=== PATIENT | male | born 1990 | race Caucasian/White ===

== ENCOUNTER 2023-01-28 08:59 | Outpatient (OUT) | payer BC, SELFPAY ==
[2023-01-28 09:15] LABS: Basophils Absolute Auto 0.1 10^3/uL (0.0-0.1); Basophils Percent Auto 0.9 % (0.2-2.0); Eosinophils Absolute Auto 0.2 10^3/uL (0.0-0.7); Eosinophils Percent Auto 2.1 % (0.9-7.0); Hematocrit 47.3 % (42.0-54.0); Hemoglobin 15.3 g/dL (14.0-18.0); Immature Granulocytes Abs Auto 0.04 10^3/uL (0.00-0.03); Immature Granulocytes Pct Auto 0.6 % (0.0-0.5); Lymphocytes Absolute Auto 2.1 10^3/uL (1.2-3.8); Lymphocytes Percent Auto 30.3 % (20.5-60.0); Mean Corpuscular HGB Conc 32.3 g/dL (29.9-35.2); Mean Corpuscular Hemoglobin 28.3 pg (25.9-34.0); Mean Corpuscular Volume 87.4 fL (80.0-94.0); Mean Platelet Volume 9.8 fL (9.5-13.5); Monocytes Absolute Auto 0.5 10^3/uL (0.3-0.8); Monocytes Percent Auto 7.7 % (1.7-12.0); Neutrophils Absolute Auto 4.1 10^3/uL (1.4-6.5); Neutrophils Percent Auto 58.4 % (43.0-75.0); Platelet Count 292 10^3/uL (150-450); Red Blood Count 5.41 10^6/uL (4.70-6.10); Red Cell Distribution Width 13.2 % (11.0-15.0)
[2023-01-28 09:26] LABS: Estimated Average Glucose 120 mg/dL; Glycohemoglobin A1C 5.8 % (4.5-6.2)
[2023-01-28 09:37] LABS: Alanine Aminotransferase 68 U/L (16-63); Albumin Globulin Ratio 1.1; Albumin Level 3.9 g/dL (3.4-5.0); Alkaline Phosphatase 99 U/L (46-116); Anion Gap 11.3; Aspartate Amino Transferase 25 U/L (15-37); BUN Creatinine Ratio 9.2; Bilirubin Total 0.3 mg/dL (0.2-1.0); Calcium 8.9 mg/dL (8.5-10.1); Carbon Dioxide 31.1 mmol/L (21.0-32.0); Chloride 102 mmol/L (98-107); Chol HDL Ratio 6.5; Cholesterol 235 mg/dL (<=200); Estimated GFR (African America >60 (>=60); Estimated GFR (Non-African Ame >60 (>=60); Globulin 3.6 g/dL; Glucose 106 mg/dL (74-106); HDL Cholesterol 36 mg/dL (40-60); Potassium 4.4 mmol/L (3.5-5.1); Sodium 140 mmol/L (136-145); Total Protein 7.5 g/dL (6.4-8.2); Triglycerides 211 mg/dL (<=150); VLDL CHOLESTEROL 42.2 mg/dL
== END 2023-01-28 09:00 | disposition home or self-care (01) ==
PROVIDERS: PCP Internal Medicine; Visit Provider Internal Medicine
DX: R10.9 Unspecified abdominal pain (principal); Z13.1 Encounter for screening for diabetes mellitus; Z13.220 Encounter for screening for lipoid disorders
CPT/HCPCS: 36415; 80053; 80061; 83036; 85025

== ENCOUNTER 2023-03-02 15:41 | Emergency (ER) | payer BC, SELFPAY ==
[2023-03-02 16:09] VITALS: BP 142/75; PULSE 72; RESP 14; TEMP 36.8; O2SAT 98; BMI 37.0
--- NOTE | 2023-03-02 16:16 | PC.NURSE ---
bottom right wisdom tooth looks cracked, no s/s of infection observed, no swelling of the face
--- NOTE | 2023-03-02 17:56 | ED_ITS ---
HPI - Dental/Oral General Chief complaint: Dental/Oral Stated complaint: TOOTH PAIN Time Seen by Provider: 03/02/23 17:48 Source: patient Mode of arrival: walk-in History of Present Illness HPI Narrative: 32-year-old male presents for pain toothache. He is complaining of moderate to severe pain at his right mandibular 3rd molar. He has an appointment with a dentist in two weeks but has been keeping him up at night and it's throbbing in continuous. Related Data Home Medications Medication Instructions Recorded Confirmed amlodipine 5 mg tablet 5 mg PO DAILY 03/02/23 03/02/23 atorvastatin 20 mg tablet 20 mg PO DAILY 03/02/23 03/02/23 dicyclomine 10 mg capsule 10 mg PO QID PRN abdominal pain 03/02/23 03/02/23 pantoprazole 40 mg tablet,delayed 40 mg PO DAILY 03/02/23 03/02/23 release valacyclovir 500 mg tablet 500 mg PO DAILY 03/02/23 03/02/23 Previous Rx's Medication Instructions Recorded acetaminophen 300 mg-codeine 30 mg 1 tab PO Q6H PRN pain 5 days #20 03/02/23 tablet tabs penicillin V potassium 250 mg 250 mg PO QID 10 days #40 tabs 03/02/23 tablet Allergies Allergy/AdvReac Type Severity Reaction Status Date / Time No Known Drug Allergies Allergy Verified 03/02/23 16:13 Review of Systems ROS Narrative A ten point review of systems is negative except as noted above. Exam Narrative Exam Narrative: Nurses note and vital signs reviewed and patient is not hypoxic. General: The patient appears well and in no apparent distress. Patient is sit ting in the examination chair. Skin: Warm, dry, no pallor noted. There is no rash noted. Head: Normocephalic, atraumatic Eye: Normal conjunctiva, no drainage Ears, Nose, Mouth, and Throat: oral mucosa is moist. Nares patent. Mouth without vesicles. dental caries is noted at the right mandibular 3rd molar. Noo bleeding or pus present. No gingival swelling or erythema. No swelling to the floor of his mouth. Cardiovascular: Regular Rate and Rhythm Respiratory: Patient is in no distress, no accessory muscle use GI: nontender Musculoskeletal: no joint swelling Neurological: A&O, normal speech Psychiatric: Cooperative Constitutional Vital Signs, click to edit/add: Last Vital Signs Temp 98.3 F 03/02/23 16:09 Pulse 72 03/02/23 16:09 Resp 14 03/02/23 16:09 BP 142/75 H 03/02/23 16:09 Pulse Ox 98 03/02/23 16:09 O2 Del Method Room Air 03/02/23 16:09 Course Vital Signs Vital signs: Vital Signs Temperature 98.3 F 03/02/23 16:09 Pulse Rate 72 03/02/23 16:09 Respiratory Rate 14 03/02/23 16:09 Blood Pressure 142/75 H 03/02/23 16:09 Pulse Oximetry 98 03/02/23 16:09 Oxygen Delivery Method Room Air 03/02/23 16:09 Temperature 98.3 F 03/02/23 16:09 Pulse Rate 72 03/02/23 16:09 Respiratory Rate 14 03/02/23 16:09 Blood Pressure 142/75 H 03/02/23 16:09 Pulse Oximetry 98 03/02/23 16:09 Oxygen Delivery Method Room Air 03/02/23 16:09 MDM - Dental/Oral MDM Narrative Medical decision making narrative: he is provided antibiotic and pain medication and will follow-up with his dentist. Treatment diagnosis and follow up are discussed with the patient. Differential Diagnosis Differential diagnosis: Likely gingival abscess, dental caries, toothache and dental abscess Discharge Plan Discharge Chief Complaint: Dental/Oral Clinical Impression: Dental caries, Toothache Patient Disposition: Home, Self-Care Time of Disposition Decision: 17:54 Condition: Good Mode of Transportation: Private Vehicle Prescriptions / Home Meds: New acetaminophen-codeine 300-30 mg tablet 1 tab PO Q6H PRN (Reason: pain) 5 Days Qty: 20 0RF penicillin V potassium 250 mg tablet 250 mg PO QID 10 Days Qty: 40 0RF No Action amlodipine 5 mg tablet 5 mg PO DAILY atorvastatin 20 mg tablet 20 mg PO DAILY dicyclomine 10 mg capsule 10 mg PO QID PRN (Reason: abdominal pain) pantoprazole 40 mg tablet,delayed release (DR/EC) 40 mg PO DAILY valacyclovir 500 mg tablet 500 mg PO DAILY Instructions: Toothache (ED), Tooth Extraction (DC) Additional Instructions: follow-up with your dentist at your appointment. Stand Alone Forms: Portal Instructions Referrals: Shaikh Moreno MD [Primary Care Provider] - 1 week
[2023-03-02] MEDS: PENICILLIN V POTASSIUM 250 MG TABLET PO (18:15)
== END 2023-03-02 18:21 | disposition home or self-care (01) ==
PROVIDERS: Emergency Provider Emergency Medicine; PCP Internal Medicine
DX: K02.9 Dental caries, unspecified (principal); K08.89 Other specified disorders of teeth and supporting structures; Z79.899 Other long term (current) drug therapy
CPT/HCPCS: 99283

== ENCOUNTER 2023-12-12 20:30 | Emergency (ER) | payer BC, SELFPAY ==
--- OUTSIDE RECORDS SUMMARY | 2023-12-12 20:36 | XMS_ITS | CCD ---
Author Organization [employer] [facility] Care Team Providers Care Distribution Systems Serviceperson Name Role Phone FAWWAD, LOPEZ Primary Care Unavailable FAWWAD, LOPEZ Admitting Unavailable FAWWAD, LOPEZ Attending Unavailable FAWWAD, LOPEZ Consulting Unavailable FAWWAD, LOPEZ Primary Care Unavailable FAWWAD, LOPEZ Admitting Unavailable Almanza, Vinaya Consulting Unavailable FAWWAD, LOPEZ Attending Unavailable FAWWAD, LOPEZ Consulting Unavailable Isacc Anderson Unavailable FAWWAD, LOPEZ Attending Unavailable Problems Active Problems Problem Classification Problem Date Documented Da te Episodic/Chronic Abdominal pain (6 sources) Unspecified abdominal pain; Translations: [Abdominal pain] Onset: 10-07-2020 Resolved: 07-24-2021 Episodic Other screening for suspected conditions (not mental disorders or infectious disease) (2 sources) Encounter for screening for diabetes mellitus; Translations: [Encounter for screening for lipoid disorders] Onset: 08-10-2020 Episodic Past or Other Problems Problem Classification Problem Date Documented Da te Episodic/Chronic Other gastrointestinal disorders (1 source) Fecal urgency Onset: 07-24-2021 Resolved: 07-24-2021 Episodic Results Test Name Value Interpretation Reference Range Facility [facility] 08-17-2021 L Specimen: [id number] Received: 08/17/21 Status: ALLISON Lazcano Num: [id number] Spec Type: Surgical Subm Dr: Isacc Anderson MD Tissues: A Duodenum - Biopsy (DUODENAL BX) B Colon Biopsy (SURVEILLANCE COLON BX) Procedures: HE Stain/4, Gross/Micro L4/2 Patient Age/Sex Location Account Attending Physician Naif Price 30/M [id number] Isacc Anderson MD SPEC NUM: [id number] RECD: 08/17/21 STATUS: ALLISON [facility] NUM: [id number] ANKIT: 08/17/21- [facility] DR: Isacc Anderson MD ENTERED: 08/17/[address]: SPEC TYPE: Surgical DEPT: S ORDERED: HE Stain/4, Gross/Micro L4/2 ORDERED: HE Stain/4, Gross/Micro L4/2 Pathological Diagnosis A. Small bowel, duodenum, biopsy: - Benign small bowel mucosa with no significant histopathology. - No evidence of celiac disease identified. B. Colon, biopsy: - Benign colonic mucosa with single lymphoid aggregate. - No evidence of chronic, active or microscopic colitis identified. Clinical Information Abdominal pain, fecal urgency Gross Description A. Received in formalin labeled with the patient's name, number and duodenal biopsy are two warner tissue fragments, 0.2 cm and 0.3 cm. Entirely submitted in one cassette labeled A1. Type of Fixative: 10% Neutral Buffered Formalin (SM/YJ) B. Received in formalin labeled with the patient's name, number and surveillance colon biopsy are three warner-pink tissue fragments, 0.3 cm each. Entirely submitted in one cassette labeled B1. Type of Fixative: 10% Neutral Buffered Formalin (SM/YJ) Specimen: [id number] Received: 08/17/21 Status: ALLISON Mccray Num: [id number] Spec Type: Surgical Subm Dr: Isacc Anderson MD Tissues: A Duodenum - Biopsy (DUODENAL BX) B Colon Biopsy (SURVEILLANCE COLON BX) Procedures: HE Stain/4, Gross/Micro L4/2 Patient: Naif Price [id number] (Continued) Specimen: [id number] Received: 08/17/21 (Continued) Signed (signature on file) Bari Ann MD 08/20/21 1413 Specimen: [id number] Received: 08/17/21 Status: ALLISON Mccray Num: [id number] Spec Type: Surgical Subm Dr: Isacc Anderson MD Tissues: A Duodenum - Biopsy (DUODENAL BX) B Colon Biopsy (SURVEILLANCE COLON BX) Procedures: HE Stain/4, Gross/Micro L4/2 Patient: Naif Price [id number] (Continued) Specimen: [id number] Received: 08/17/21 (Continued) Microscopic Description A. Two H E slides are reviewed. Microscopic examination is performed. B. Two H E slides are reviewed. Microscopic examination is performed. This case is interpreted at [place], [place]. CPT Codes A. 79523 B. 29720 Specimen: [id number] Received: 08/17/21 Status: ALLISON Mccray Num: [id number] Spec Type: Surgical Subm Dr: Isacc Anderson MD Tissues: A Duodenum - Biopsy (DUODENAL BX) B Colon Biopsy (SURVEILLANCE COLON BX) Procedures: HE Stain/4, Gross/Micro L4/2 Patient: Naif Price [id number] (Continued) Signed (signature on file) Bari Ann MD 08/20/21 1413 Normal [facility] Bowel Disorders Cascadeon Antigliadin IgG 3 Normal 0-19 [facility] Comment on above: Order Comment: Reaso n for Exam Abdominal pain;Fecal urgency Result Comment: Nega tive 0 - 19 Weak Positive 20 - 30 Moderate to Strong Positive >30 Performed By: #### C MP, CBC, THYROID SC #### [facility] [address] [place] [address] [place] #### BOWEL CASC #### [facility] , Atypical pANCA Negative Normal Negative [facility] Comment on above: Order Comment: Reaso n for Exam Abdominal pain;Fecal urgency Performed By: #### C MP, CBC, THYROID SC #### [place] [address] [place] #### BOWEL CASC #### [facility] , Bowel Disorders Bandera Negative Normal Negative [facility] Comment on above: Order Comment: Reaso n for Exam Abdominal pain;Fecal urgency Performed By: #### C MP, CBC, THYROID SC #### [place] [address] [place] #### BOWEL CASC #### [facility] , Note Bandera continues Normal . [facility] Comment on above: Order Comment: Reaso n for Exam Abdominal pain;Fecal urgency Performed By: #### C MP, CBC, THYROID SC #### [facility] [address] [place] [address] [place] #### BOWEL CASC #### [facility] , Note Normal . [facility] Comment on above: Order Comment: Reaso n for Exam Abdominal pain;Fecal urgency Result Comment: Sugg estive of irritable bowel syndrome (IBS). Careful evaluation of the patient's history, physical examination, and application of Moorhead III diagnostic criteria may help to rule in or rule out the diagnosis of IBS. Subsequent testing for Fecal Calprotectin (821356) may be recommended. If IBD is strongly suspected, subsequent testing with the Crohn's Disease Prognostic Profile (203979) that includes anti-glycan antibodies AMCA, ALCA, ACCA, and Nawaf may aid in differential diagnosis. Performed at: [facility], [place], [place] [id number] Alarm Adjuster: Gary Villegas MD, Phone: [phone] PERFORMED BY: [place] [address] PATHOLOGIST OFFICE EMPLOYEE LASHELL LEIGH M.D. Performed By: #### C MP, CBC, THYROID SC #### [address] #### BOWEL CASC #### [facility] , Saccharomyces cerevisiae, IgG < 20.0 Normal 0.0-24.9 [facility] Comment on above: Order Comment: Reaso n for Exam Abdominal pain;Fecal urgency Result Comment: Nega tive <20.0 Equivocal 20.1 - 24.9 Positive >or= 25.0 Performed By: #### C MP, CBC, THYROID SC #### [address] #### BOWEL CASC #### [facility] , [facility] SARS-CoV-2 (COVID-19) RNA GREGORY+probe Ql (Unsp spec) Negative Normal Negative [facility] Comment on above: Order Comment: Healt hcare Worker?: N Result Comment: Testing for SARS-CoV-2 by RT-PCR This test was developed and its performance characteristics determined by [employer]) and validated at the [facility]. This test has not been FDA cleared or approved. This test has been authorized by FDA under an Emergency Use Authorization (EUA). This test has been validated in accordance with the FDA's Guidance Document (Policy for Diagnostics Testing in Laboratories Certified to Perform High Complexity Testing under CLIA prior to Emergency Use Authorization for Coronavirus Disease-2019 during the Public Health Emergency) issued on June 17, 2019. This test is only authorized for the duration of time the declaration that circumstances exist justifying the authorization of the emergency use of in vitro diagnostic tests for detection of SARS-CoV-2 virus and/or diagnosis of COVID-19 infection under section 564(b)(1) of the Act, 21 U.S.C. 360bbb-3(b)(1), unless the authorization is terminated or revoked sooner. PERFORMED BY: [place] [address] PATHOLOGIST OFFICE EMPLOYEE LASHELL LEIGH M.D. Performed By: #### C OVID 19 [facility] #### [address] Complete Blood Count Auto Di ffon 08-14-2021 Basophils (Bld) [#/Vol] 0.0 10*3/uL Normal 0.0-0.2 [facility] Comment on above: Order Comment: Reaso n for Exam Abdominal pain;Fecal urgency Result Comment: PERF ORMED BY: [place] [address] PATHOLOGIST OFFICE EMPLOYEE LASHELL LEIGH M.D. Performed By: #### C MP, CBC, THYROID SC #### [address] #### BOWEL CASC #### [facility] , Basophils/100 WBC (Bld) 0.5 % Normal . [facility] Comment on above: Order Comment: Reaso n for Exam Abdominal pain;Fecal urgency Performed By: #### C MP, CBC, THYROID SC #### [address] #### BOWEL CASC #### [facility] , Eosinophils (Bld) [#/Vol] 0.1 10*3/uL Normal 0.0-0.45 [facility] Comment on above: Order Comment: Reaso n for Exam Abdominal pain;Fecal urgency Performed By: #### C MP, CBC, THYROID SC #### [address] #### BOWEL CASC #### [facility] , Eosinophils/100 WBC (Bld) 1.3 % Normal . [facility] Comment on above: Order Comment: Reaso n for Exam Abdominal pain;Fecal urgency Performed By: #### C MP, CBC, THYROID SC #### [address] #### BOWEL CASC #### [facility] , Erythrocyte distribution width (RBC) [Ratio] 13.5 % Normal 12.0-14.8 [facility] Comment on above: Order Comment: Reaso n for Exam Abdominal pain;Fecal urgency Performed By: #### C MP, CBC, THYROID SC #### [address] #### BOWEL CASC #### [facility] , Hematocrit (Bld) [Volume fraction] 47.1 % Normal 38.8-50.0 [facility] Comment on above: Order Comment: Reaso n for Exam Abdominal pain;Fecal urgency Performed By: #### C MP, CBC, THYROID SC #### [address] #### BOWEL CASC #### [facility] , Hemoglobin (Bld) [Mass/Vol] 15.7 g/dL Normal 13.0-17.0 [facility] Comment on above: Order Comment: Reaso n for Exam Abdominal pain;Fecal urgency Performed By: #### C MP, CBC, THYROID SC #### [address] #### BOWEL CASC #### [facility] , Lymphocytes (Bld) [#/Vol] 1.5 10*3/uL Normal 1.00-4.8 [facility] Comment on above: Order Comment: Reaso n for Exam Abdominal pain;Fecal urgency Performed By: #### C MP, CBC, THYROID SC #### [place] [address] [place] #### BOWEL CASC #### [facility] , Lymphocytes/100 WBC (Bld) 21.2 % Normal . [facility] Comment on above: Order Comment: Reaso n for Exam Abdominal pain;Fecal urgency Performed By: #### C MP, CBC, THYROID SC #### [address] #### BOWEL CASC #### [facility] , MCH (RBC) [Entitic mass] 28.1 pg Normal 27.5-35.2 [facility] Comment on above: Order Comment: Reaso n for Exam Abdominal pain;Fecal urgency Performed By: #### C MP, CBC, THYROID SC #### [address] #### BOWEL CASC #### [facility] , MCV (RBC) [Entitic vol] 84.5 fL Normal 83.5-101 [facility] Comment on above: Order Comment: Reaso n for Exam Abdominal pain;Fecal urgency Performed By: #### C MP, CBC, THYROID SC #### [address] #### BOWEL CASC #### [facility] , Mean Corpuscular HGB Conc 33.3 g/dL Normal 32.5-35.6 [facility] Comment on above: Order Comment: Reaso n for Exam Abdominal pain;Fecal urgency Performed By: #### C MP, CBC, THYROID SC #### [address] #### BOWEL CASC #### [facility] , Monocytes (Bld) [#/Vol] 0.7 10*3/uL Normal 0.0-0.8 [facility] Comment on above: Order Comment: Reaso n for Exam Abdominal pain;Fecal urgency Performed By: #### C MP, CBC, THYROID SC #### [place] [address] [place] #### BOWEL CASC #### [facility] , Monocytes/100 WBC (Bld) 10.5 % Normal . [facility] Comment on above: Order Comment: Reaso n for Exam Abdominal pain;Fecal urgency Performed By: #### C MP, CBC, THYROID SC #### [place] [address] [place] #### BOWEL CASC #### [facility] , Neutrophils (Bld) [#/Vol] 4.6 10*3/uL Normal 1.8-7.7 [facility] Comment on above: Order Comment: Reaso n for Exam Abdominal pain;Fecal urgency Performed By: #### C MP, CBC, THYROID SC #### [place] [address] [place] #### BOWEL CASC #### [facility] , Neutrophils/100 WBC (Bld) 66.5 % Normal . [facility] Comment on above: Order Comment: Reaso n for Exam Abdominal pain;Fecal urgency Performed By: #### C MP, CBC, THYROID SC #### [address] #### BOWEL CASC #### [facility] , Nucleated RBC/100 WBC (Bld) [Ratio] 0.1 % Normal 0-0.5 [facility] Comment on above: Order Comment: Reaso n for Exam Abdominal pain;Fecal urgency Performed By: #### C MP, CBC, THYROID SC #### [place] [address] [place] #### BOWEL CASC #### [facility] , Platelet mean volume (Bld) [Entitic vol] 8.4 fL Normal 6.6-10.1 [facility] Comment on above: Order Comment: Reaso n for Exam Abdominal pain;Fecal urgency Performed By: #### C MP, CBC, THYROID SC #### [place] [address] [place] #### BOWEL CASC #### [facility] , Platelets (Bld) [#/Vol] 255 10*3/uL Normal 150-450 [facility] Comment on above: Order Comment: Reaso n for Exam Abdominal pain;Fecal urgency Performed By: #### C MP, CBC, THYROID SC #### [place] [address] [place] #### BOWEL CASC #### [facility] , RBC (Bld) [#/Vol] 5.58 10*6/uL Normal 3.90-5.60 [facility] Comment on above: Order Comment: Reaso n for Exam Abdominal pain;Fecal urgency Performed By: #### C MP, CBC, THYROID SC #### [place] [address] [place] #### BOWEL CASC #### [facility] , WBC (Bld) [#/Vol] 6.9 10*3/uL Normal 4.5-11.0 [facility] Comment on above: Order Comment: Reaso n for Exam Abdominal pain;Fecal urgency Performed By: #### C MP, CBC, THYROID SC #### [address] #### BOWEL CASC #### [facility] , Comprehensive Metabolic Pane karishma 08-14-2021 Albumin [Mass/Vol] 3.9 g/dL Normal 3.2-5.5 [facility] Comment on above: Order Comment: Reaso n for Exam Abdominal pain;Fecal urgency Performed By: #### C MP, CBC, THYROID SC #### [address] #### BOWEL CASC #### [facility] , Albumin/Globulin [Mass ratio] 1.3 {ratio} Normal [facility] Comment on above: Order Comment: Reaso n for Exam Abdominal pain;Fecal urgency Performed By: #### C MP, CBC, THYROID SC #### [place] [address] [place] #### BOWEL CASC #### [facility] , ALP [Catalytic activity/Vol] 91 U/L Normal 32-92 [facility] Comment on above: Order Comment: Reaso n for Exam Abdominal pain;Fecal urgency Performed By: #### C MP, CBC, THYROID SC #### [address] [place] [address] [place] #### BOWEL CASC #### [facility] , ALT [Catalytic activity/Vol] 49 U/L Normal 10-60 [facility] Comment on above: Order Comment: Reaso n for Exam Abdominal pain;Fecal urgency Performed By: #### C MP, CBC, THYROID SC #### [place] [address] [place] #### BOWEL CASC #### [facility] , AST [Catalytic activity/Vol] 34 U/L Normal 10-42 [facility] Comment on above: Order Comment: Reaso n for Exam Abdominal pain;Fecal urgency Performed By: #### C MP, CBC, THYROID SC #### [address] #### BOWEL CASC #### [facility] , Bilirubin [Mass/Vol] 0.5 mg/dL Normal 0.3-1.2 [facility] Comment on above: Order Comment: Reaso n for Exam Abdominal pain;Fecal urgency Performed By: #### C MP, CBC, THYROID SC #### [place] [address] [place] #### BOWEL CASC #### [facility] , Calcium [Mass/Vol] 8.9 mg/dL Normal 8.2-10.2 [facility] Comment on above: Order Comment: Reaso n for Exam Abdominal pain;Fecal urgency Performed By: #### C MP, CBC, THYROID SC #### [place] [address] [place] #### BOWEL CASC #### [facility] , Chloride [Moles/Vol] 104 mmol/L Normal 95-114 [facility] Comment on above: Order Comment: Reaso n for Exam Abdominal pain;Fecal urgency Performed By: #### C MP, CBC, THYROID SC #### [place] [address] [place] #### BOWEL CASC #### [facility] , CO2 [Moles/Vol] 25.0 mmol/L Normal 22.0-30.0 [facility] Comment on above: Order Comment: Reaso n for Exam Abdominal pain;Fecal urgency Performed By: #### C MP, CBC, THYROID SC #### [place] [address] [place] #### BOWEL CASC #### [facility] , Creatinine [Mass/Vol] 0.98 mg/dL Normal 0.64-1.27 [facility] Comment on above: Order Comment: Reaso n for Exam Abdominal pain;Fecal urgency Performed By: #### C MP, CBC, THYROID SC #### [place] [address] [place] #### BOWEL CASC #### [facility] , Estimated GFR ( Kari > 60 [facility] Comment on above: Order Comment: Reaso n for Exam Abdominal pain;Fecal urgency Result Comment: GFR estimated reference range: According to KDOQI guidelines, <60 ml/min/1.73m2 is sufficient to diagnose a patient with chronic kidney disease. Performed By: #### C MP, CBC, THYROID SC #### [place] [address] [place] #### BOWEL CASC #### [facility] , Estimated GFR (Non- Am > 60 [facility] Comment on above: Order Comment: Reaso n for Exam Abdominal pain;Fecal urgency Performed By: #### C MP, CBC, THYROID SC #### [place] [address] [place] #### BOWEL CASC #### [facility] , Globulin (S) [Mass/Vol] 2.9 g/dL [facility] Comment on above: Order Comment: Reaso n for Exam Abdominal pain;Fecal urgency Performed By: #### C MP, CBC, THYROID SC #### [place] [address] [place] #### BOWEL CASC #### [facility] , Glucose [Mass/Vol] 100 mg/dL Normal 70-100 [facility] Comment on above: Order Comment: Reaso n for Exam Abdominal pain;Fecal urgency Result Comment: [facility] Glucose Reference Range is dependent on time and content of last meal. Glucose of more than 200 mg/dL in a nonstressed, ambulatory subject supports the diagnosis of Diabetes Mellitus. ADA recommended reference range Performed By: #### C MP, CBC, THYROID SC #### [place] [address] [place] #### BOWEL CASC #### [facility] , Potassium [Moles/Vol] 4.0 mmol/L Normal 3.5-5.1 [facility] Comment on above: Order Comment: Reaso n for Exam Abdominal pain;Fecal urgency Performed By: #### C MP, CBC, THYROID SC #### [place] [address] [place] #### BOWEL CASC #### [facility] , Protein [Mass/Vol] 6.8 g/dL Normal 6.1-7.9 [facility] Comment on above: Order Comment: Reaso n for Exam Abdominal pain;Fecal urgency Performed By: #### C MP, CBC, THYROID SC #### [place] [address] [place] #### BOWEL CASC #### [facility] , Sodium [Moles/Vol] 137 mmol/L Normal 136-146 [facility] Comment on above: Order Comment: Reaso n for Exam Abdominal pain;Fecal urgency Performed By: #### C MP, CBC, THYROID SC #### [place] [address] [place] #### BOWEL CASC #### [facility] , Urea nitrogen [Mass/Vol] 14 mg/dL Normal 9-23 [facility] Comment on above: Order Comment: Reaso n for Exam Abdominal pain;Fecal urgency Performed By: #### C MP, CBC, THYROID SC #### [address] [address] [place] #### BOWEL CASC #### [facility] , THYROID SCREENon 08-14-2021 Free T4 [Mass/Vol] 1.00 ng/dL Normal 0.61-1.12 [facility] Comment on above: Order Comment: Reaso n for Exam Abdominal pain;Fecal urgency Performed By: #### C MP, CBC, THYROID SC #### [facility] [address] [place] [address] [place] #### BOWEL CASC #### [facility] , TSH Qn 1.53 m[IU]/L Normal 0.45-5.33 [facility] Comment on above: Order Comment: Reaso n for Exam Abdominal pain;Fecal urgency Result Comment: PERF ORMED BY: [place] [address] PATHOLOGIST OFFICE EMPLOYEE LASHELL LEIGH M.D. Performed By: #### C MP, CBC, THYROID SC #### [facility] [address] [place] [address] [place] #### BOWEL CASC #### [facility] , US SINGLE QUAD RT UPPERon US SINGLE QUAD RT UPPER EXAM: US SINGLE QUAD RT UPPER HISTORY: Abdominal pain COMPARISON: None. FINDINGS: Arce-scale and color sonography of the right upper quadrant was performed. The liver, gallbladder, pancreas, right kidney, and intra- and extrahepatic biliary ducts are all normal. No biliary duct dilatation is seen. The IVC and portal vein are normal at the level of the liver. The common duct measures 0.2 cm. The right kidney measures 10.4 cm in sagittal dimension. Sonographic Babin sign is absent. IMPRESSION: 1. Normal right upper quadrant ultrasound. 2. No biliary duct dilatation or gallstones. Electronically authenticated by: MANOLO ALMANZA Date: 2020-10-08 18:[address] [facility] CBC AUTO DIFFon 08-02-2020 BASO # 0.0 103/ul Normal 0.0-0.1 [facility] Comment on above: Performed By: #### C BC #### [facility] [address] [id number] Anh Ritika Basophils/100 WBC (Bld) 0.3 % Normal 0.2-2.[address] [facility] Comment on above: Performed By: #### C BC #### [facility] [address] [place], [place] [id number] Anh Ritika EO # 0.1 103/ul Normal 0.0-0.[address] [facility] Comment on above: Performed By: #### C BC #### [facility] [address] [id number] Anh Ritika Eosinophils/100 WBC (Bld) 1.3 % Normal 0.9-7.[address] [facility] Comment on above: Performed By: #### C BC #### [facility] [address] [place] [address] Anh Ritika Erythrocyte distribution width (RBC) [Ratio] 13.2 % Normal 11.0-15.[address] [facility] Comment on above: Performed By: #### C BC #### [facility] [address] [place] [address] Anh Ritika Hematocrit (Bld) [Volume fraction] 48.8 % Normal 42.0-54.[address] [facility] Comment on above: Performed By: #### C BC #### [facility] [address] [place], [place] [id number] Anh Ritika Hemoglobin (Bld) [Mass/Vol] 16.0 g/dL Normal 14.0-18.[address] [facility] Comment on above: Performed By: #### C BC #### [facility] [address] [place], [place] [id number] Anh Ritika IG # 0.11 10e3/ul Critically high 0.00-0.03 [facility] Comment on above: Performed By: #### C BC #### [facility] [address] [place], [place] [id number] Anh Ritika IG % 1.3 % Critically high 0.0-0.5 [facility] Comment on above: Performed By: #### C BC #### [facility] [address] [place], [place] [id number] Anh Ritika LYMPH # 1.8 103/ul Normal 1.2-3.[address] [facility] Comment on above: Performed By: #### C BC #### [facility] [address] [place], [place] [id number] Anh Yost Lymphocytes/100 WBC (Bld) 20.4 % Critically low 20.5-60.0 [facility] Comment on above: Performed By: #### C BC #### [facility] [address] [place] [address] Anh Yost MANUAL DIFF REQ NO Normal [facility] Comment on above: Performed By: #### C BC #### [facility] [address] [place] [address] Anhradha Yost MCH (RBC) [Entitic mass] 28.4 pg Normal 25.9-34.[address] [facility] Comment on above: Performed By: #### C BC #### [facility] [address] [place] [address] Anhradha Yost MCHC (RBC) [Mass/Vol] 32.8 g/dL Normal 29.9-35.[address] [facility] Comment on above: Performed By: #### C BC #### [facility] [address] [place] [address] Anhradha Yost MCV (RBC) [Entitic vol] 86.5 fL Normal 80.0-94.[address] [facility] Comment on above: Performed By: #### C BC #### [facility] [address] [place] [address] Anhradha Bansalen MONO # 0.6 103/ul Normal 0.3-0.[address] [facility] Comment on above: Performed By: #### C BC #### [facility] [address] [place] [address] Anh Yost Monocytes/100 WBC (Bld) 7.0 % Normal 1.7-12.[address] [facility] Comment on above: Performed By: #### C BC #### [facility] [address] [place] [address] Anh Ritika NEUT # 6.1 103/ul Normal 1.4-6.5 [facility] Comment on above: Performed By: #### C BC #### [facility] [address] [place], [place] [address] Anh Ritika Neutrophils/100 WBC (Bld) 69.7 % Normal 43.0-75.0 [facility] Comment on above: Performed By: #### C BC #### [facility] [address] [place], [place] [address] Anh Ritika Platelet mean volume (Bld) [Entitic vol] 11.0 fL Normal 9.5-13.5 [facility] Comment on above: Performed By: #### C BC #### [facility] [address] [place], [place] [address] Anh Ritika PLT 270 103/ul Normal 150-450 [facility] [facility] Comment on above: Performed By: #### C BC #### [facility] [address] [place], [place] [id number] Anh Ritika RBC 5.64 106/ul Normal 4.70-6.10 [facility] Comment on above: Performed By: #### C BC #### [facility] [address] [place], [place] [address] Anh Ritika WBC 8.8 103/ul Normal 4.0-11.0 [facility] Comment on above: Performed By: #### C BC #### [facility] [address] [place] [id number] Anhradha Yost GLYCOHEMOGLOBIN A1Con 2020 ADA RECOMMENDATION ADA THERAPEUTIC TARGET 6.0 - 7.0 ACTION SUGGESTED > 7.0 Normal [facility] Comment on above: Performed By: #### A 1C #### [facility] [address] [place], [place] [address] Anh Ritika Glucose [Mass/Vol] 114 mg/dL Normal [facility] Comment on above: Performed By: #### A 1C #### [facility] [address] [place], [place] [address] Anh Ritika HbA1c (Bld) [Mass fraction] 5.6 % Normal <=6.0 [facility] Comment on above: Performed By: #### A 1C #### [facility] [address] [place], [place] [address] Anh Ritika LIPID PROFILEon 08-02-2020 CHOL-HDL RATIO NORM SEE BELOW Normal [facility] Comment on above: Result Comment: 3.3 - 4.4 LOW RISK 4.4 - 7.1 AVERAGE RISK 7.1 - 11.0 MODERATE RISK >11.0 HIGH RISK Performed By: #### L IPID, CMP #### [facility] [address] [place], [place] [address] Anh Ritika Cholesterol [Mass/Vol] 193 mg/dL Normal <=200 [facility] Comment on above: Performed By: #### L IPID, CMP #### [facility] [address] [place], [place] [address] Anh Ritika Cholesterol in HDL [Mass/Vol] 30 mg/dL Normal [facility] Comment on above: Performed By: #### L IPID, CMP #### [facility] [address] [place], [place] [address] Anh Ritika Cholesterol in LDL [Mass/Vol] 118.2 mg/dL Normal [facility] Comment on above: Performed By: #### L IPID, CMP #### [facility] [address] [place], [place] [address] Anh Ritika Cholesterol.total/Cho lesterol in HDL [Mass ratio] 6.4 {ratio} Normal [facility] Comment on above: Performed By: #### L IPID, CMP #### [facility] [address] [place], [place] [address] Anh Ritika HDL NORMAL > or = 60 mg/dl - LOW CARDIOVASCULAR RISK <40 mg/dl - HIGH CARDIOVASCULAR RISK Normal [facility] Comment on above: Performed By: #### L IPID, CMP #### [facility] [address] [place], [place] [address] Anh Ritika LDL CALC NORMAL SEE BELOW Normal [facility] Comment on above: Result Comment: <100 mg/dl OPTIMAL 100 - 129 mg/dl NEAR OR ABOVE OPTIMAL 130 - 159 mg/dl BORDERLINE HIGH 160 - 189 mg/dl HIGH >190 mg/dl VERY HIGH Performed By: #### L IPID, CMP #### [facility] [address] [place], [place] [address] Anh Ritika Triglyceride [Mass/Vol] 224 mg/dL Critically high <=150 [facility] Comment on above: Performed By: #### L IPID, CMP #### [facility] [address] [place], [place] [address] Anh Ritika VLDL CALC 44.8 mg/dL Normal [facility] Comment on above: Performed By: #### L IPID, CMP #### [facility] [address] [place] [id number] Anh Ritika PROF 14(COMP METB)on 021 Albumin [Mass/Vol] 4.1 g/dL Normal 3.5-5.0 [facility] Comment on above: Performed By: #### L IPID, CMP #### [facility] [address] [place], [place] [id number] Anh Ritika Albumin/Globulin [Mass ratio] 1.1 {ratio} Normal [facility] Comment on above: Performed By: #### L IPID, CMP #### [facility] [address] [place] [id number] Anh Ritika ALP [Catalytic activity/Vol] 105 U/L Normal 38-126 [facility] Comment on above: Performed By: #### L IPID, CMP #### [facility] [address] [place] [address] Anh Ritika ALT [Catalytic activity/Vol] 77 U/L Critically high 21-72 [facility] Comment on above: Performed By: #### L IPID, CMP #### [facility] [address] [place] [id number] Anh Ritika Anion gap [Moles/Vol] 12.4 mmol/L Normal [facility] Comment on above: Performed By: #### L IPID, CMP #### [facility] [address] [place] [id number] Anh Ritika AST [Catalytic activity/Vol] 32 U/L Normal 17-59 [facility] Comment on above: Performed By: #### L IPID, CMP #### [facility] [address] [place] [address] Anh Ritika Bilirubin [Mass/Vol] 0.3 mg/dL Normal 0.2-1.[address] [facility] Comment on above: Performed By: #### L IPID, CMP #### [facility] [address] [place] [address] Anh Riitka Calcium [Mass/Vol] 9.3 mg/dL Normal 8.4-10.2 [facility] Comment on above: Performed By: #### L IPID, CMP #### [facility] [address] [place] [address] Anh Ritika Chloride [Moles/Vol] 103 mmol/L Normal 98-107 [facility] Comment on above: Performed By: #### L IPID, CMP #### [facility] [address] [place] [address] Anh Ritika CO2 [Moles/Vol] 29.8 mmol/L Normal 22.0-30.0 [facility] Comment on above: Performed By: #### L IPID, CMP #### [facility] [address] [place] [address] Anh Ritika Creatinine [Mass/Vol] 1.02 mg/dL Normal 0.66-1.25 [facility] Comment on above: Performed By: #### L IPID, CMP #### [facility] [address] [place] [address] Anh Ritika EGFR-AF SWISS >60 Normal >=60 [facility] Comment on above: Performed By: #### L IPID, CMP #### [facility] [address] [place] [address] Anh Ritika EGFR-NON AF SWISS >60 Normal >=60 [facility] Comment on above: Performed By: #### L IPID, CMP #### [facility] [address] [place] [address] Anh Ritika Globulin (S) [Mass/Vol] 3.8 g/dL Normal [facility] Comment on above: Performed By: #### L IPID, CMP #### [facility] [address] [place], [place] [address] Anh Ritika Glucose [Mass/Vol] 97 mg/dL Normal 74-106 [facility] [place] [facility] Comment on above: Performed By: #### L IPID, CMP #### [facility] [address] [place], [place] [address] Anh Ritika Potassium [Moles/Vol] 4.2 mmol/L Normal 3.4-5.0 [facility] Comment on above: Performed By: #### L IPID, CMP #### [facility] [address] [place] [id number] Anh Ritika Protein [Mass/Vol] 7.9 g/dL Normal 6.1-8.2 [facility] [place] [facility] Comment on above: Performed By: #### L IPID, CMP #### [facility] [address] [place] [id number] Anh Ritika Sodium [Moles/Vol] 141 mmol/L Normal 137-145 [facility] [place] [facility] Comment on above: Performed By: #### L IPID, CMP #### [facility] [address] [place] [id number] Anh Ritika Urea nitrogen [Mass/Vol] 13.0 mg/dL Normal 9.0-20.0 [facility] Comment on above: Performed By: #### L IPID, CMP #### [facility] [address] [place] [id number] Anh Ritika Urea nitrogen/Creatinine [Mass ratio] 12.7 mg/mg Normal [facility] Comment on above: Performed By: #### L IPID, CMP #### [facility] [address] [place], [place] [address] Anh Ritika Coding Summary.on 11-02-2019 Coding Summary. CODING DATE: 11/02/2019 FINAL [facility] STATUS: Home (Routine DC) PAYOR: Tri ADMIT DX: REASON FOR VISIT DX: R68.89 Other general symptoms and signs FINAL DX: PRINCIPAL: R68.89 Other general symptoms and signs SECONDARY: Z11.59 Encounter for screening for other viral diseases PYMT PROC APC STAT DESCRIPTION DOCTOR NAME DATE NOTE: The code number assigned matches the documented diagnosis and / or procedure in the patient's chart. However, the narrative phrase printed from the coding software may appear abbreviated, or result in slightly different terminology. Coded By: Beth Renner CphT Date Saved: 11/02/2019 04:52 pm Normal [facility] Provider Letteron 10-15-2019 Provider Letter October 15, 2019 NAIF PRICE [address] [place] [address] NAIF PRICE 1990 To Whom It May Concern, Please excuse above patient from work. May Return to Work On: 10/18/2019 Comments: COVID-19 TEST WAS NEGATIVE. Pt may return to work if symptoms are improving, no fever for 3 days without the use of Tylenol/Ibuprofen Sincerely, [facility] [address] [place] [address], [place] [address] Normal [facility] SARS-CoV-2, NAAon 10-15-2019 SARS CORONAVIRUS 2 RNA:PRTHR:PT:RESPIRAT ORY:ORD:PROBE.AMP.TAR Not Detected Not Detected [facility] Comment on above: Result Comment: This test was developed and its performance characteristics determined by [employer]. This test has not been FDA cleared or approved. This test has been authorized by FDA under an Emergency Use Authorization (EUA). This test is only authorized for the duration of time the declaration that circumstances exist justifying the authorization of the emergency use of in vitro diagnostic tests for detection of SARS-CoV-2 virus and/or diagnosis of COVID-19 infection under section 564(b)(1) of the Act, 21 U.S.C. 360bbb-3(b)(1), unless the authorization is terminated or revoked sooner. When diagnostic testing is negative, the possibility of a false negative result should be considered in the context of a patient's recent exposures and the presence of clinical signs and symptoms consistent with COVID-19. An individual without symptoms of COVID-19 and who is not shedding SARS-CoV-2 virus would expect to have a negative (not detected) result in this assay. Performed at: [facility] [address] [facility], [place] [id number] [facility] Aaron Kelsey Performed By: #### S ARS-CoV-2, GREGORY #### [facility] [address] [place] [id number] Family Medicine Phone Visit - Telehealthon 10-11-2019 Family Medicine Phone Visit - Telehealth Chief Complaint NEW SORE THROAT RUNNY NOSE HPI Staff PT states on going symptoms for two - 3 days. pt states it started with a runny nose, followed by a productive cough, itchy throat, fatigue, body aches and upset stomach. pt states he is not sure if he has been exposed to COVID-19. History of Present Illness Chief complaint: NAIF PRICE is a 28 Years Male who is presents via telehealth phone visit for concerns of nasal symptoms, productive cough, sore/itchy throat, body aches, and fatigue that has been present x 3 days, but pt. states that cough started last night. Pt. states that he has also has GI symptoms and gets in to coughing fits that cause him to vomit. Pt. states that when he vomits it looks like white foam. Pt. states they took his temp at work and he did not have a fever, denies any SOB, chest pain, or headaches with symptoms. Pt. denies any known contacts with individuals with COVID-19. OTC medications used: Pt. states he did take OTC Allergy medication and nasal decongestion medications Review of Systems ROS - Provider Constitutional: fever no, chills no, sweats no, body aches yes, + body aches Skin: rash no ENMT: ear pain no, ear drainage no, sore throat yes, nasal congestion yes , nasal drainage yes, hoarseness no Respiratory: chest discomfort no, shortness of breath no, cough yes, productive , orthopnea no, wheezing no Cardiovascular: chest pain no, palpitations no, edema no Gastrointestinal: nausea yes, vomiting yes, diarrhea no Neurologic: headache no, dizziness no, weakness no Physical Exam Vitals & Measurements HT: 168 cm WT: 109 kg BMI: 38.62 General: Well developed, well nourished, in no acute distress Lungs: No respiratory distress, No conversational dyspnea. Mental Status: Alert and oriented x3. Normal mood and affect Assessment/Plan 1. Flu-like symptoms (R68.89: Other general symptoms and signs) Pt. scheduled for COVID-19 test, and was called and made aware of time and process to be tested. Pt. should self quarantine until result Practice social distancing trying to stay at least 6 feet away from others, frequent handwashing for 20 seconds or hand turf manager. Avoid touching face, eyes, nose, mouth. Be courteous and respectful of others health. Wear a clean cloth mask to reduce risk of passing virus to others. If you were to develop trouble breathing then call local ED and for advice and further directions as to where to go. Otherwise try to stay at home. Ordered: SARS-CoV-2, GREGORY Orders: brompheniramine/dext romethorphan/PSE, 10 mL, Oral, QID for cold symptoms, 200 mL, Refill(s) 0, [id number], 168, cm, 10/11/19 10:36:00 EDT, Height/Length Measured, 109, kg, 10/11/19 10:36:00 EDT, Weight Measured ondansetron, 4 mg = 1 tab(s), Oral, q6hr, PRN Nausea/Vomiting, # 12 tab(s), Refills(s) 0, Pharmacy: [id number], 168, cm, 10/11/19 10:36:00 EDT, Height/Length Measured, 109, kg, 10/11/19 10:36:00 EDT, Weight Measured XR Wrist 3+ Views Right Follow-up No qualifying data available Patient Education Viral Infections, Oumy-Sv-Jqtb Problem List/Past Medical History Ongoing Obesity Historical No qualifying data Procedure/Surgical History None. Medications Bromfed DM oral syrup, 10 mL, Oral, QID, PRN ondansetron 4 mg Dis Tab, 4 mg= 1 tab(s), Oral, q6hr, PRN Allergies No Known Allergies Social History Tobacco 10 or more cigarettes (1/2 pack or more)/day in last 30 days Tobacco Use:. Cigarettes, 10/11/2019 Family History Hypertension: Father. This visit was conducted via phone communications from my office due to the restrictions of the COVID-19 pandemic. No physical exam was conducted due to audio only communication with the patient located at [address] [phone], with no one else. If it is determined that the patient should be evaluated in person, the patient will be directed to the appropriate clinic or venue. The patient or their guardian verbally consented to this visit. Phone time was 10 minutes discussing health issues with counseling and coordination of care. Normal [facility] Comment on above: Result Comment: Rylie canalesally Signed By: LUAN CURRAN CNP\.prasanna\Date and Time Signed: 10/11/19 11:08 EDT Patient Educationon 10-11-19 Patient Education Family Medicine Viral Infections A virus is a type of germ. Viruses can cause: ? Minor sore throats. ? Aches and pains. ? Headaches. ? Runny nose. ? Rashes. ? Watery eyes. ? Tiredness. ? Coughs. ? Loss of appetite. ? Feeling sick to your stomach (nausea ). ? Throwing up (vomiting ). ? Watery poop (diarrhea ). HOME CARE ? Only take medicines as told by your doctor. ? Drink enough water and fluids to keep your pee (urine ) clear or pale yellow. Sports drinks are a good choice. ? Get plenty of rest and eat healthy. Soups and broths with crackers or rice are fine. GET HELP RIGHT AWAY IF: ? You have a very bad headache. ? You have shortness of breath. ? You have chest pain or neck pain. ? You have an unusual rash. ? You cannot stop throwing up. ? You have watery poop that does not stop. ? You cannot keep fluids down. ? You or your child has a temperature by mouth above 102? F (38.9? C), not controlled by medicine. ? Your baby is older than 3 months with a rectal temperature of 102? F (38.9? C) or higher. ? Your baby is 3 months old or younger with a rectal temperature of 100.4? F (38? C) or higher. MAKE SURE YOU: ? Understand these instructions. ? Will watch this condition. ? Will get help right away if you are not doing well or get worse. Document Released: 02/13/2009 Document Revised: 05/25/2012 Document Reviewed: 07/09/2011 [employer]Care? Patient Information ?2013 Isabella Oliver. Normal [facility] Vital Signs Date Time Vital Sign Value Performing Clinician Savita santiago 07-24-2021 16:30-0400 Body height 167.64 cm Isacc Justin Other [employer] Other 07-24-2021 16:30-0400 Body mass index (BMI) [Ratio] 37.6 kg/m2 Isacc Riveraormack Other [employer] Other 07-24-2021 16:30-0400 Body weight 105.69 kg Isacc Justin Other [employer] Other 07-24-2021 16:30-0400 Diastolic blood pressure 94 mm[Hg] Isacc Justin Other [employer] [employer] Other 07-24-2021 16:30-0400 Systolic blood pressure 143 mm[Hg] Isacc Chavarriaack Other [employer] Other Encounters Encounter Date Encounter Type Care Provider Facility Start: 04-10-2023 End: 04-10-2023 ambulatory SHAIKH LUCY Not Available Start: 07-24-2021 End: 07-24-2021 ambulatory Isacc Justin Other [employer] Other Start: 07-24-2021 Office outpatient ne w 45 minutes Isacc Anderson [facility] Start: 10-07-2020 End: 10-08-2020 ambulatory LOPEZ FAANTONIOD Facility:[facility] Start: 08-02-2020 End: 08-03-2020 ambulatory LOPEZ FAANTONIOD Facility:[facility] Payers Date Payer Category Payer Unknown [id number] [id number] 1990 Unknown [id number] 1990 Unknown [id number] 1959 Unknown [id number] Social History Date Type Detail Facility Sex Assigned At [facility] [employer] Other Evaluation note 07-24-2021 Note Date & Type Note Facility 07-24-2021 Evaluation note Encounter Date Diagnosis Assessment Notes July, Abdominal pain (ICD-10 - R10.9) July, Fecal urgency (ICD-10 - R15.2) [facility] [employer] Other Summary Purpose Family History No Family History Records FoundNo Family History Records FoundNo Family History Records FoundNo Family History Records Found Advance Directives No Advanced Directives Records FoundNo Advanced Directives Records FoundNo Advanced Directives Records FoundNo Advanced Directives Records Found Additional Source Comments (unrecognized sect ion and content) No Status Records FoundNo Status Records FoundNo Status Records FoundNo Status Records Found INFORMATION SOURCE (unrecogn ized section and content) DATE CREATED AUTHOR 11/03/2019 [facility] DATE CREATED AUTHOR AUTHOR'S ORGANIZ ATION 10/19/2020 [facility] DATE CREATED AUTHOR AUTHOR'S ORGANIZ ATION 08/23/2021 [facility] DATE CREATED AUTHOR AUTHOR'S ORGANIZ ATION 04/11/2023 [facility] EPIC REASON FOR VISIT (unrecogniz ed section and content) PATIENT REFERRED HERE BY DR. AYALA FOR ABDOMINAL PAIN. PT DOES TAKE MEDICATION BUT DOES NOT RECALL NAMES OR DOSAGES NOR DOES HE HAVE A LIST TO REVIEW FOR RECORDS PERTAINING TO PATIENTS WHO ARE OR HAVE BEEN ENROLLED IN A CHEMICAL DEPENDENCY/SUBSTANCEABUSE PROGRAM, SOME INFORMATION MAY BE OMITTED. This clinical summary was aggregated from multiple sources. Caution should be exercised in using it in the provision of clinical care. This summary normalizes information from multiple sources, and as a consequence, information in this document may materially change the coding, format and clinical context of patient data. In addition, data may be omitted in some cases. CLINICAL DECISIONS SHOULD BE BASED ON THE PRIMARY CLINICAL RECORDS. [employer] provides no warranty or guarantee of the accuracy or completeness of information in this document.
[2023-12-12 20:37] VITALS: BP 146/89; PULSE 77; TEMP 37.1; O2SAT 97; BMI 37.1
--- NOTE | 2023-12-12 20:41 | XR_ITS ---
[address] [address] Patient Name: MERARY PRICE MRN: [id number] date: 1990 Sex: M Assigned Patient Location: ER Current Patient Location: ED.MAIN Accession/Order Number: [id number] Exam Date: 12/12/2023 20:50 Report Date: 12/12/2023 21:25 At the request of: LEORA VILCHIS Procedure: XR chest 1V ONE-VIEW CHEST RADIOGRAPH, 12/12/2023 8:50 PM EDT COMPARISON: None CLINICAL HISTORY: Cough FINDINGS: No acute cardiopulmonary disease. No pulmonary edema, pneumothorax, or pleural effusion. Normal heart size. No acute osseous abnormality. XR/XR chest 1V IMPRESSION: No acute abnormality identified. Electronically authenticated by: Cheo MCCULLOUGH Date: 12/12/2023 21:25
--- NOTE | 2023-12-12 20:42 | ED_ITS ---
HPI HPI - General Adult General Chief complaint: Upper Respiratory Infection Stated complaint: COLD, ROUGH BREATHING Time Seen by Provider: 12/12/23 20:31 Source: patient Mode of arrival: walk-in Limitations: no limitations History of Present Illness HPI narrative: Patient is a 33-year-old male who presents to the emergency department for evaluation of upper respiratory symptoms for the past 2 days. He reports some discomfort in the chest with coughing and deep breathing. He has had some sputum production but no hemoptysis. No fevers. He denies vomiting or diarrhea. He reports nasal congestion and runny nose, ear pressure and productive coughing. He has no history of any heart or lung problems, he is a regular smoker. No sick contacts in the home. Related Data Home Medications ?Medication ?Instructions ?Recorded ?Confirmed amlodipine 5 mg tablet 5 mg PO DAILY 03/02/23 03/02/23 atorvastatin 20 mg tablet 20 mg PO DAILY 03/02/23 03/02/23 dicyclomine 10 mg capsule 10 mg PO QID PRN abdominal pain 03/02/23 03/02/23 pantoprazole 40 mg tablet,delayed 40 mg PO DAILY 03/02/23 03/02/23 release valacyclovir 500 mg tablet 500 mg PO DAILY 03/02/23 03/02/23 Previous Rx's ?Medication ?Instructions ?Recorded acetaminophen 300 mg-codeine 30 mg 1 tab PO Q6H PRN pain 5 days #20 03/02/23 tablet tabs penicillin V potassium 250 mg 250 mg PO QID 10 days #40 tabs 03/02/23 tablet albuterol sulfate 90 mcg/actuation 2 inh inhalation Q4H PRN shortness 12/12/23 aerosol inhaler of breath or wheezing #8.5 grams rornuwrpgbyylms-mxzbjfptsvzvdgi-OF 10 ml PO Q6H PRN cold symptoms 12/12/23 2 mg-30 mg-10 mg/5 mL oral syrup #200 mL (Bromfed DM) ondansetron 4 mg disintegrating 4 mg PO Q6H PRN nausea and 12/12/23 tablet vomiting #12 tabs prednisone 20 mg tablet 60 mg (3 x 20 mg) PO DAILY 3 days 12/12/23 #9 tabs Allergies Allergy/AdvReac Type Severity Reaction Status Date / Time No Known Drug Allergies Allergy Verified 12/12/23 20:37 Opioid HPI Opioid Management Most Recent Opioid Data: Last Pain Scale 5 03/02/23 18:15 Review of Systems ROS Constitutional Reports: chills; Denies: fever Ears, nose, mouth, and throat Reports: nasal discharge and nasal congestion; Denies: throat pain Cardiovascular Denies: swelling of feet/ankles Respiratory Reports: cough and pain on inspiration; Denies: shortness of breath, change in phlegm color or coughing up blood Gastrointestinal Denies: nausea or vomiting Musculoskeletal Denies: back pain or neck pain Integumentary/Breast Denies: rash Neurological Denies: headache, numbness in extremities or weakness in extremities Hematologic/Lymphatic Denies: easy bruising or easy bleeding Allergic/Immunologic Denies: hives PFSH [facility] Social History Little interest or pleasure in doing things: not at all Feeling down, depressed, or hopeless: not at all Exam Narrative Exam Narrative: Gen.: Awake, alert, in no distress Head: Normocephalic, atraumatic ENT: Moist mucous membranes, bilateral TMs are fluid-filled with no erythema or injection, no pharyngeal erythema Respiratory: No respiratory distress, lungs clear bilaterally Cardio: Regular rate and rhythm Extremities: Moves extremities equally Psych: Normal mood and affect Neuro: No focal neuro deficit Skin: Warm, dry, intact Constitutional Vital Signs, click to edit/add: Last Vital Signs Temp 98.7 F 12/12/23 20:37 Pulse 77 12/12/23 20:37 Resp 18 12/12/23 20:37 BP 146/89 H 12/12/23 20:37 Pulse Ox 97 12/12/23 20:37 O2 Del Method Room Air 12/12/23 20:37 Course Vital Signs Vital signs: Vital Signs Temperature 98.7 F 12/12/23 20:37 Pulse Rate 77 12/12/23 20:37 Respiratory Rate 18 12/12/23 20:37 Blood Pressure 146/89 H 12/12/23 20:37 Pulse Oximetry 97 12/12/23 20:37 Oxygen Delivery Method Room Air 12/12/23 20:37 Temperature 98.7 F 12/12/23 20:37 Pulse Rate 77 12/12/23 20:37 Respiratory Rate 18 12/12/23 20:37 Blood Pressure 146/89 H 12/12/23 20:37 Pulse Oximetry 97 12/12/23 20:37 Oxygen Delivery Method Room Air 12/12/23 20:37 Medical Decision Making MDM Narrative Medical decision making narrative: Patient is positive for COVID, negative for influenza and chest x-ray is unremarkable. He is hemodynamically stable. He is started on prednisone in the ER and discharged home with Bromfed-DM, prednisone, inhaler and Zofran as needed. Follow-up with PCP. Return to the ER if symptoms change or worsen SUPERVISED APC VISIT, PHYSICIAN ATTESTATION: Based on the medical record the care appears appropriate. ? Medical Records Medical records reviewed: Yes I reviewed the patient's medical records Lab Data Lab results reviewed: Yes I reviewed the patient's lab results Labs: Lab Results 12/12/23 Range/Units 20:55 Influenza Type A Ag Negative Influenza Type B Ag Negative SARS-CoV-2 Ag (CV2AG) Positive A (NEGATIVE) Imaging Data Chest x-ray: Attestation: I have reviewed the pertinent imaging results. Radiologist's impression: ITS Impressions Chest X-Ray 12/12/23 20:41 IMPRESSION: No acute abnormality identified. Electronically authenticated by: Cheo MCCULLOUGH Date: 12/12/2023 21:25 Discharge Plan Discharge Chief Complaint: Upper Respiratory Infection Clinical Impression: COVID-19 Patient Disposition: Home, Self-Care Time of Disposition Decision: 21:25 Condition: Good Prescriptions / Home Meds: New albuterol sulfate 90 mcg/actuation HFA aerosol inhaler 2 inh inhalation Q4H PRN (Reason: shortness of breath or wheezing) Qty: 8.5 0RF ftljoosxyscescu-[id number]-UG [Bromfed DM] 2-30-10 mg/5 mL syrup 10 ml PO Q6H PRN (Reason: cold symptoms) Qty: 200 0RF prednisone 20 mg tablet 60 mg PO DAILY 3 Days Qty: 9 0RF ondansetron 4 mg tablet,disintegrating 4 mg PO Q6H PRN (Reason: nausea and vomiting) Qty: 12 0RF No Action amlodipine 5 mg tablet 5 mg PO DAILY atorvastatin 20 mg tablet 20 mg PO DAILY dicyclomine 10 mg capsule 10 mg PO QID PRN (Reason: abdominal pain) pantoprazole 40 mg tablet,delayed release (DR/EC) 40 mg PO DAILY valacyclovir 500 mg tablet 500 mg PO DAILY acetaminophen-codeine 300-30 mg tablet 1 tab PO Q6H PRN (Reason: pain) 5 Days Qty: 20 0RF penicillin V potassium 250 mg tablet 250 mg PO QID 10 Days Qty: 40 0RF Print Language: [place] Instructions: COVID-19 (Coronavirus Disease 2019) (ED) Referrals: Shaikh Moreno MD [Primary Care Provider] - 1 week Discharge Date/Time: 12/12/23 21:38
[2023-12-12] MEDS: PREDNISONE 20 MG TABLET 60 MG PO (20:54)
[2023-12-12 21:22] LABS: Influenza Virus A Antigen Negative; Influenza Virus B Antigen Negative; Internal Control Within Normal Limits; SARS-CoV-2 Ag POSITIVE (NEGATIVE)
== END 2023-12-12 21:38 | disposition home or self-care (01) ==
PROVIDERS: Physician Assistant; Emergency Provider Internal Medicine; PCP Internal Medicine
DX: U07.1 COVID-19 (principal)
CPT/HCPCS: 71045; 87804; 87811; 99284; J7512

== ENCOUNTER 2024-06-08 06:53 | Emergency (ER) | payer BC, SELFPAY ==
[2024-06-08 06:59] VITALS: BP 162/94; PULSE 84; TEMP 37.6; O2SAT 99; BMI 38.7
--- OUTSIDE RECORDS SUMMARY | 2024-06-08 07:05 | XMS_ITS | CCD ---
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 DR: Isacc Anderson MD ENTERED: 08/17/21 YVONNE [...] Fixative: 10% Neutral Buffered Formalin (SM/YJ) Specimen: [id number] Received: 08/17/21 Status: ALLISON Mccray Num: [id number] Spec Type: Surgical Subm Dr: Isacc Anderson MD Tissues: A Duodenum - Biopsy (DUODENAL BX) B Colon Biopsy (SURVEILLANCE COLON BX) Procedures: HE Stain/4, Gross/Micro L4/2 Patient: Naif Price [id number] (Continued) Specimen: [id number] Received: 08/17/21 (Continued) Signed (signature on file) Bari Ann MD 08/20/21 1413 Specimen: [id number] Received: 08/17/21 Status: ALLISON Mccray Num: [id number] Spec Type: Surgical Subm Dr: Isacc Anderson MD Tissues: A Duodenum - Biopsy (DUODENAL BX) B Colon Biopsy (SURVEILLANCE COLON BX) Procedures: HE Stain/4, Gross/Micro L4/2 Patient: Naif Price [id number] (Continued) Specimen: [id number] Received: 08/17/21 (Continued) Microscopic Description A. Two H E slides are reviewed. Microscopic examination is performed. B. Two H E slides are reviewed. Microscopic examination is performed. This case is interpreted at [place], [place]. CPT Codes A. 11390 B. 97856 Specimen: [id number] Received: 08/17/21 Status: ALLISON Mccray Num: [id number] Spec Type: Surgical Subm Dr: Isacc Anderson MD Tissues: A Duodenum - Biopsy (DUODENAL BX) B Colon Biopsy (SURVEILLANCE COLON BX) Procedures: HE Stain/4, Gross/Micro L4/2 Patient: Naif Price [id number] (Continued) Signed (signature on file) Bari Ann MD 08/20/21 1413 Normal [facility] Bowel Disorders Cascadeon Antigliadin IgG 3 Normal 0-19 [facility] Comment on above: Order Comment: Reaso n for Exam Abdominal pain;Fecal urgency Result Comment: Nega tive 0 - 19 Weak Positive 20 - 30 Moderate to Strong Positive >30 Performed By: #### C MP, CBC, THYROID SC #### [facility] [address] [place] [address] [place] #### BOWEL CASC #### [facility] , Atypical pANCA Negative Normal Negative [facility] Comment on above: Order Comment: Reaso n for Exam Abdominal pain;Fecal urgency Performed By: #### C MP, CBC, THYROID SC #### [place] [address] [place] #### BOWEL CASC #### [facility] , Bowel Disorders [place] Negative Normal Negative [facility] Comment on above: Order Comment: Reaso n for Exam Abdominal pain;Fecal urgency Performed By: #### C MP, CBC, THYROID SC #### [place] [address] [place] #### BOWEL CASC #### [facility] , Note [place] continues Normal . [facility] Comment on above: Order Comment: Reaso n for Exam Abdominal pain;Fecal urgency Performed By: #### C MP, CBC, THYROID SC #### [facility] [address] [place] [address] [place] #### BOWEL CASC #### [facility] , Note Normal . [facility] Comment on above: Order Comment: Reaso n for Exam Abdominal pain;Fecal urgency Result Comment: Sugg estive of irritable bowel syndrome (IBS). Careful evaluation of the patient's history, physical examination, and application of Llano III diagnostic criteria may help to rule in or rule out the diagnosis of IBS. Subsequent testing for Fecal Calprotectin (347110) may be recommended. If IBD is strongly suspected, subsequent testing with the Crohn's Disease Prognostic Profile (180229) that includes anti-glycan antibodies AMCA, ALCA, ACCA, and Nawaf may aid in differential diagnosis. Performed at: [facility] [address], [place], [place] [id number] Medical Office Professional Instructor: Gary Villegas MD, Phone: [phone] PERFORMED BY: [place] [address] PATHOLOGIST [employer] MARKETING VP LASHELL LEIGH M.D. Performed By: #### C MP, CBC, THYROID SC #### [address] #### BOWEL CASC #### [facility] , Saccharomyces cerevisiae, IgG < 20.0 Normal 0.0-24.9 [facility] Comment on above: Order Comment: Reaso n for Exam Abdominal pain;Fecal urgency Result Comment: Nega tive <20.0 Equivocal 20.1 - 24.9 Positive >or= 25.0 Performed By: #### C MP, CBC, THYROID SC #### [address] #### BOWEL CASC #### [facility] , [facility] SARS-CoV-2 (COVID-19) RNA GREGORY+probe Ql (Unsp spec) Negative Normal Negative [facility] Comment on above: Order Comment: Healt hcare Worker?: N Result Comment: Testing for SARS-CoV-2 by RT-PCR This test was developed and its performance characteristics determined by [employer] and validated at the [facility]. This test has not been FDA cleared [...] is terminated or revoked sooner. PERFORMED BY: [place] [address] PATHOLOGIST GROUP MARKETING VP LASHELL LEIGH M.D. Performed By: #### C OVID 19 [facility] #### [address] Complete Blood Count Auto Di ffon 08-14-2021 Basophils (Bld) [#/Vol] 0.0 10*3/uL Normal 0.0-0.2 [facility] Comment on above: Order Comment: Reaso n for Exam Abdominal pain;Fecal urgency Result Comment: PERF ORMED BY: [place] [address] PATHOLOGIST GROUP MARKETING VP LASHELL LEIGH M.D. Performed By: #### C MP, CBC, THYROID SC #### [address] #### BOWEL CASC #### [facility] , Basophils/100 WBC (Bld) 0.5 % Normal . [facility] Comment on above: Order Comment: Reaso n for Exam Abdominal pain;Fecal urgency Performed By: #### C MP, CBC, THYROID SC #### [address] #### BOWEL CASC #### [facility] , Eosinophils (Bld) [#/Vol] 0.1 10*3/uL Normal 0.0-0.45 [facility] Comment on above: Order Comment: Reaso n for Exam Abdominal pain;Fecal urgency Performed By: #### C MP, CBC, THYROID SC #### [address] #### BOWEL CASC #### [facility] , Eosinophils/100 WBC (Bld) 1.3 % Normal . [facility] Comment on above: Order Comment: Reaso n for Exam Abdominal pain;Fecal urgency Performed By: #### C MP, CBC, THYROID SC #### [address] #### BOWEL CASC #### [facility] , Erythrocyte distribution width (RBC) [Ratio] 13.5 % Normal 12.0-14.8 [facility] Comment on above: Order Comment: Reaso n for Exam Abdominal pain;Fecal urgency Performed By: #### C MP, CBC, THYROID SC #### [address] #### BOWEL CASC #### [facility] , Hematocrit (Bld) [Volume fraction] 47.1 % Normal 38.8-50.0 [facility] Comment on above: Order Comment: Reaso n for Exam Abdominal pain;Fecal urgency Performed By: #### C MP, CBC, THYROID SC #### [address] #### BOWEL CASC #### [facility] , Hemoglobin (Bld) [Mass/Vol] 15.7 g/dL Normal 13.0-17.0 [facility] Comment on above: Order Comment: Reaso n for Exam Abdominal pain;Fecal urgency Performed By: #### C MP, CBC, THYROID SC #### [address] #### BOWEL CASC #### [facility] , Lymphocytes (Bld) [#/Vol] 1.5 10*3/uL Normal 1.00-4.8 [facility] Comment on above: Order Comment: Reaso n for Exam Abdominal pain;Fecal urgency Performed By: #### C MP, CBC, THYROID SC #### [place] [address] [place] #### BOWEL CASC #### [facility] , Lymphocytes/100 WBC (Bld) 21.2 % Normal . [facility] Comment on above: Order Comment: Reaso n for Exam Abdominal pain;Fecal urgency Performed By: #### C MP, CBC, THYROID SC #### [address] #### BOWEL CASC #### [facility] , MCH (RBC) [Entitic mass] 28.1 pg Normal 27.5-35.2 [facility] Comment on above: Order Comment: Reaso n for Exam Abdominal pain;Fecal urgency Performed By: #### C MP, CBC, THYROID SC #### [address] #### BOWEL CASC #### [facility] , MCV (RBC) [Entitic vol] 84.5 fL Normal 83.5-101 [facility] Comment on above: Order Comment: Reaso n for Exam Abdominal pain;Fecal urgency Performed By: #### C MP, CBC, THYROID SC #### [address] #### BOWEL CASC #### [facility] , Mean Corpuscular HGB Conc 33.3 g/dL Normal 32.5-35.6 [facility] Comment on above: Order Comment: Reaso n for Exam Abdominal pain;Fecal urgency Performed By: #### C MP, CBC, THYROID SC #### [address] #### BOWEL CASC #### [facility] , Monocytes (Bld) [#/Vol] 0.7 10*3/uL Normal 0.0-0.8 [facility] Comment on above: Order Comment: Reaso n for Exam Abdominal pain;Fecal urgency Performed By: #### C MP, CBC, THYROID SC #### [place] [address] [place] #### BOWEL CASC #### [facility] , Monocytes/100 WBC (Bld) 10.5 % Normal . [facility] Comment on above: Order Comment: Reaso n for Exam Abdominal pain;Fecal urgency Performed By: #### C MP, CBC, THYROID SC #### [place] [address] [place] #### BOWEL CASC #### [facility] , Neutrophils (Bld) [#/Vol] 4.6 10*3/uL Normal 1.8-7.7 [facility] Comment on above: Order Comment: Reaso n for Exam Abdominal pain;Fecal urgency Performed By: #### C MP, CBC, THYROID SC #### [place] [address] [place] #### BOWEL CASC #### [facility] , Neutrophils/100 WBC (Bld) 66.5 % Normal . [facility] Comment on above: Order Comment: Reaso n for Exam Abdominal pain;Fecal urgency Performed By: #### C MP, CBC, THYROID SC #### [address] #### BOWEL CASC #### [facility] , Nucleated RBC/100 WBC (Bld) [Ratio] 0.1 % Normal 0-0.5 [facility] Comment on above: Order Comment: Reaso n for Exam Abdominal pain;Fecal urgency Performed By: #### C MP, CBC, THYROID SC #### [place] [address] [place] #### BOWEL CASC #### [facility] , Platelet mean volume (Bld) [Entitic vol] 8.4 fL Normal 6.6-10.1 [facility] Comment on above: Order Comment: Reaso n for Exam Abdominal pain;Fecal urgency Performed By: #### C MP, CBC, THYROID SC #### [place] [address] [place] #### BOWEL CASC #### [facility] , Platelets (Bld) [#/Vol] 255 10*3/uL Normal 150-450 [facility] Comment on above: Order Comment: Reaso n for Exam Abdominal pain;Fecal urgency Performed By: #### C MP, CBC, THYROID SC #### [place] [address] [place] #### BOWEL CASC #### [facility] , RBC (Bld) [#/Vol] 5.58 10*6/uL Normal 3.90-5.60 [facility] Comment on above: Order Comment: Reaso n for Exam Abdominal pain;Fecal urgency Performed By: #### C MP, CBC, THYROID SC #### [place] [address] [place] #### BOWEL CASC #### [facility] , WBC (Bld) [#/Vol] 6.9 10*3/uL Normal 4.5-11.0 [facility] Comment on above: Order Comment: Reaso n for Exam Abdominal pain;Fecal urgency Performed By: #### C MP, CBC, THYROID SC #### [address] #### BOWEL CASC #### [facility] , Comprehensive Metabolic Pane karishma 08-14-2021 Albumin [Mass/Vol] 3.9 g/dL Normal 3.2-5.5 [facility] Comment on above: Order Comment: Reaso n for Exam Abdominal pain;Fecal urgency Performed By: #### C MP, CBC, THYROID SC #### [address] #### BOWEL CASC #### [facility] , Albumin/Globulin [Mass ratio] 1.3 {ratio} Normal [facility] Comment on above: Order Comment: Reaso n for Exam Abdominal pain;Fecal urgency Performed By: #### C MP, CBC, THYROID SC #### [place] [address] [place] #### BOWEL CASC #### [facility] , ALP [Catalytic activity/Vol] 91 U/L Normal 32-92 [facility] Comment on above: Order Comment: Reaso n for Exam Abdominal pain;Fecal urgency Performed By: #### C MP, CBC, THYROID SC #### [address] [place] [address] [place] #### BOWEL CASC #### [facility] , ALT [Catalytic activity/Vol] 49 U/L Normal 10-60 [facility] Comment on above: Order Comment: Reaso n for Exam Abdominal pain;Fecal urgency Performed By: #### C MP, CBC, THYROID SC #### [place] [address] [place] #### BOWEL CASC #### [facility] , AST [Catalytic activity/Vol] 34 U/L Normal 10-42 [facility] Comment on above: Order Comment: Reaso n for Exam Abdominal pain;Fecal urgency Performed By: #### C MP, CBC, THYROID SC #### [address] #### BOWEL CASC #### [facility] , Bilirubin [Mass/Vol] 0.5 mg/dL Normal 0.3-1.2 [facility] Comment on above: Order Comment: Reaso n for Exam Abdominal pain;Fecal urgency Performed By: #### C MP, CBC, THYROID SC #### [place] [address] [place] #### BOWEL CASC #### [facility] , Calcium [Mass/Vol] 8.9 mg/dL Normal 8.2-10.2 [facility] Comment on above: Order Comment: Reaso n for Exam Abdominal pain;Fecal urgency Performed By: #### C MP, CBC, THYROID SC #### [place] [address] [place] #### BOWEL CASC #### [facility] , Chloride [Moles/Vol] 104 mmol/L Normal 95-114 [facility] Comment on above: Order Comment: Reaso n for Exam Abdominal pain;Fecal urgency Performed By: #### C MP, CBC, THYROID SC #### [place] [address] [place] #### BOWEL CASC #### [facility] , CO2 [Moles/Vol] 25.0 mmol/L Normal 22.0-30.0 [facility] Comment on above: Order Comment: Reaso n for Exam Abdominal pain;Fecal urgency Performed By: #### C MP, CBC, THYROID SC #### [place] [address] [place] #### BOWEL CASC #### [facility] , Creatinine [Mass/Vol] 0.98 mg/dL Normal 0.64-1.27 [facility] Comment on above: Order Comment: Reaso n for Exam Abdominal pain;Fecal urgency Performed By: #### C MP, CBC, THYROID SC #### [place] [address] [place] #### BOWEL CASC #### [facility] , Estimated GFR ( Kari > 60 [facility] Comment on above: Order Comment: Reaso n for Exam Abdominal pain;Fecal urgency Result Comment: GFR estimated reference range: According to KDOQI guidelines, <60 ml/min/1.73m2 is sufficient to diagnose a patient with chronic kidney disease. Performed By: #### C MP, CBC, THYROID SC #### [place] [address] [place] #### BOWEL CASC #### [facility] , Estimated GFR (Non- Am > 60 [facility] Comment on above: Order Comment: Reaso n for Exam Abdominal pain;Fecal urgency Performed By: #### C MP, CBC, THYROID SC #### [place] [address] [place] #### BOWEL CASC #### [facility] , Globulin (S) [Mass/Vol] 2.9 g/dL [facility] Comment on above: Order Comment: Reaso n for Exam Abdominal pain;Fecal urgency Performed By: #### C MP, CBC, THYROID SC #### [place] [address] [place] #### BOWEL CASC #### [facility] , Glucose [Mass/Vol] 100 mg/dL Normal 70-100 [facility] Comment on above: Order Comment: Reaso n for Exam Abdominal pain;Fecal urgency Result Comment: [facility] Glucose Reference Range is dependent on time and content of last meal. Glucose of more than 200 mg/dL in a nonstressed, ambulatory subject supports the diagnosis of Diabetes Mellitus. ADA recommended reference range Performed By: #### C MP, CBC, THYROID SC #### [place] [address] [place] #### BOWEL CASC #### [facility] , Potassium [Moles/Vol] 4.0 mmol/L Normal 3.5-5.1 [facility] Comment on above: Order Comment: Reaso n for Exam Abdominal pain;Fecal urgency Performed By: #### C MP, CBC, THYROID SC #### [place] [address] [place] #### BOWEL CASC #### [facility] , Protein [Mass/Vol] 6.8 g/dL Normal 6.1-7.9 [facility] Comment on above: Order Comment: Reaso n for Exam Abdominal pain;Fecal urgency Performed By: #### C MP, CBC, THYROID SC #### [place] [address] [place] #### BOWEL CASC #### [facility] , Sodium [Moles/Vol] 137 mmol/L Normal 136-146 [facility] Comment on above: Order Comment: Reaso n for Exam Abdominal pain;Fecal urgency Performed By: #### C MP, CBC, THYROID SC #### [place] [address] [place] #### BOWEL CASC #### [facility] , Urea nitrogen [Mass/Vol] 14 mg/dL Normal 9-23 [facility] Comment on above: Order Comment: Reaso n for Exam Abdominal pain;Fecal urgency Performed By: #### C MP, CBC, THYROID SC #### [address] [address] [place] #### BOWEL CASC #### [facility] , THYROID SCREENon 08-14-2021 Free T4 [Mass/Vol] 1.00 ng/dL Normal 0.61-1.12 [facility] Comment on above: Order Comment: Reaso n for Exam Abdominal pain;Fecal urgency Performed By: #### C MP, CBC, THYROID SC #### [facility] [address] [place] [address] [place] #### BOWEL CASC #### [facility] , TSH Qn 1.53 m[IU]/L Normal 0.45-5.33 [facility] Comment on above: Order Comment: Reaso n for Exam Abdominal pain;Fecal urgency Result Comment: PERF ORMED BY: [place] [address] PATHOLOGIST GROUP MARKETING VP LASHELL LEIGH M.D. Performed By: #### C MP, CBC, THYROID SC #### [facility] [address] [place] [address] [place] #### BOWEL CASC #### [facility] , [...] MANOLO ALMANZA Date: 2020-10-08 18:19 Normal [facility] CBC AUTO DIFFon 08-02-2020 BASO # 0.0 103/ul Normal 0.0-0.[address] [facility] Comment on above: Performed By: #### C BC #### [facility] [address] [id number] Anh Ritika Basophils/100 WBC (Bld) 0.3 % Normal 0.2-2.0 [facility] Comment on above: Performed By: #### C BC #### [facility] [address] [place], [place] [address] Anh Ritika EO # 0.1 103/ul Normal 0.0-0.7 [facility] Comment on above: Performed By: #### C BC #### [facility] [address] [id number] Anh Ritika Eosinophils/100 WBC (Bld) 1.3 % Normal 0.9-7.0 [facility] Comment on above: Performed By: #### C BC #### [facility] [address] [place] [address] Anh Ritika Erythrocyte distribution width (RBC) [Ratio] 13.2 % Normal 11.0-15.0 [facility] Comment on above: Performed By: #### C BC #### [facility] [address] [place] [address] Anh Ritika Hematocrit (Bld) [Volume fraction] 48.8 % Normal 42.0-54.0 [facility] Comment on above: Performed By: #### C BC #### [facility] [address] [place], [place] [address] Anh Ritika Hemoglobin (Bld) [Mass/Vol] 16.0 g/dL Normal 14.0-18.0 [facility] Comment on above: Performed By: #### C BC #### [facility] [address] [place], [place] [address] Anh Ritika IG # 0.11 10e3/ul Critically high 0.00-0.03 [facility] Comment on above: Performed By: #### C BC #### [facility] [address] [place], [place] [address] Anh Ritika IG % 1.3 % Critically high 0.0-0.5 [facility] Comment on above: Performed By: #### C BC #### [facility] [address] [place], [place] [address] Anh Ritika LYMPH # 1.8 103/ul Normal 1.2-3.8 [facility] Comment on above: Performed By: #### C BC #### [facility] [address] [place], [place] [address] Anh Yost Lymphocytes/100 WBC (Bld) 20.4 % Critically low 20.5-60.[address] [facility] Comment on above: Performed By: #### C BC #### [facility] [address] [place] [address] Anh Yost MANUAL DIFF REQ NO Normal [facility] Comment on above: Performed By: #### C BC #### [facility] [address] [place] [address] Anhradha Yost MCH (RBC) [Entitic mass] 28.4 pg Normal 25.9-34.0 [facility] Comment on above: Performed By: #### C BC #### [facility] [address] [place] [address] Anhradha Yost MCHC (RBC) [Mass/Vol] 32.8 g/dL Normal 29.9-35.2 [facility] Comment on above: Performed By: #### C BC #### [facility] [address] [place] [address] Anhradha Yost MCV (RBC) [Entitic vol] 86.5 fL Normal 80.0-94.0 [facility] Comment on above: Performed By: #### C BC #### [facility] [address] [place] [address] Anhradha Bansalen MONO # 0.6 103/ul Normal 0.3-0.8 [facility] Comment on above: Performed By: #### C BC #### [facility] [address] [place] [address] Anh Yost Monocytes/100 WBC (Bld) 7.0 % Normal 1.7-12.0 [facility] Comment on above: Performed By: #### C BC #### [facility] [address] [place] [address] Anh Ritika NEUT # 6.1 103/ul Normal 1.4-6.5 [facility] Comment on above: Performed By: #### C BC #### [facility] [address] [place], [place] [address] Anh Ritika Neutrophils/100 WBC (Bld) 69.7 % Normal 43.0-75.[address] [facility] Comment on above: Performed By: #### C BC #### [facility] [address] [place], [place] [address] Anh Ritika Platelet mean volume (Bld) [Entitic vol] 11.0 fL Normal 9.5-13.[address] [facility] Comment on above: Performed By: #### C BC #### [facility] [address] [place], [place] [address] Anh Ritika PLT 270 103/ul Normal 150-[address] [facility] Comment on above: Performed By: #### C BC #### [facility] [address] [place], [place] [address] Anh Ritika RBC 5.64 106/ul Normal 4.70-6.[address] [facility] Comment on above: Performed By: #### C BC #### [facility] [address] [place], [place] [address] Anh Ritika WBC 8.8 103/ul Normal 4.0-11.[address] [facility] Comment on above: Performed By: #### C BC #### [facility] [address] [place] [address] Anhradha Yost GLYCOHEMOGLOBIN A1Con 2020 ADA RECOMMENDATION ADA THERAPEUTIC TARGET 6.0 - 7.0 ACTION SUGGESTED > 7.[address] [facility] Comment on above: Performed By: #### A 1C #### [facility] [address] [place], [place] [address] Anh Ritika Glucose [Mass/Vol] 114 mg/dL Normal [facility] Comment on above: Performed By: #### A 1C #### [facility] [address] [place], [place] [address] Anh Ritika HbA1c (Bld) [Mass fraction] 5.6 % Normal <=6.[address] [facility] Comment on above: Performed By: #### A 1C #### [facility] [address] [place], [place] [address] Anh Ritika LIPID PROFILEon 08-02-2020 CHOL-HDL RATIO NORM SEE BELOW Normal [facility] Comment on above: Result Comment: 3.3 - 4.4 LOW RISK 4.4 - 7.1 AVERAGE RISK 7.1 - 11.0 MODERATE RISK >11.0 HIGH RISK Performed By: #### L IPID, CMP #### [facility] [address] [place], [place] [address] Anh Ritika Cholesterol [Mass/Vol] 193 mg/dL Normal <=[address] [facility] Comment on above: Performed By: #### L IPID, CMP #### [facility] [address] [place], [place] [address] Anh Ritika Cholesterol in HDL [Mass/Vol] 30 mg/dL Normal [facility] Comment on above: Performed By: #### L IPID, CMP #### [facility] [address] [place], [place] [address] Anh Ritika Cholesterol in LDL [Mass/Vol] 118.2 mg/dL Normal [facility] Comment on above: Performed By: #### L IPID, CMP #### [facility] [address] [place], [place] [address] Anh Ritika Cholesterol.total/Cho lesterol in HDL [Mass ratio] 6.4 {ratio} Normal [facility] Comment on above: Performed By: #### L IPID, CMP #### [facility] [address] [place], [place] [address] Anh Ritika HDL NORMAL > or = 60 mg/dl - LOW CARDIOVASCULAR RISK <40 mg/dl - HIGH CARDIOVASCULAR RISK Normal [facility] Comment on above: Performed By: #### L IPID, CMP #### [facility] [address] [place], [place] [address] Anh Ritika LDL CALC NORMAL SEE BELOW Normal [facility] Comment on above: Result Comment: <100 mg/dl OPTIMAL 100 - 129 mg/dl NEAR OR ABOVE OPTIMAL 130 - 159 mg/dl BORDERLINE HIGH 160 - 189 mg/dl HIGH >190 mg/dl VERY HIGH Performed By: #### L IPID, CMP #### [facility] [address] [place], [place] [address] Anh Ritika Triglyceride [Mass/Vol] 224 mg/dL Critically high <=[address] [facility] Comment on above: Performed By: #### L IPID, CMP #### [facility] [address] [place], [place] [address] Anh Ritika VLDL CALC 44.8 mg/dL Normal [facility] Comment on above: Performed By: #### L IPID, CMP #### [facility] [address] [id number] Anh Ritika PROF 14(COMP METB)on 021 Albumin [Mass/Vol] 4.1 g/dL Normal 3.5-5.0 [facility] Comment on above: Performed By: #### L IPID, CMP #### [facility] [address] [place], [place] [id number] Anh Ritika Albumin/Globulin [Mass ratio] 1.1 {ratio} Normal [facility] Comment on above: Performed By: #### L IPID, CMP #### [facility] [address] [id number] Anh Ritika ALP [Catalytic activity/Vol] 105 U/L Normal 38-[address] [facility] Comment on above: Performed By: #### L IPID, CMP #### [facility] [address] [place] [address] Anh Ritika ALT [Catalytic activity/Vol] 77 U/L Critically high 21-[address] [facility] Comment on above: Performed By: #### L IPID, CMP #### [facility] [address] [id number] Anh Ritika Anion gap [Moles/Vol] 12.4 mmol/L Normal [facility] Comment on above: Performed By: #### L IPID, CMP #### [facility] [address] [id number] Anh Ritika AST [Catalytic activity/Vol] 32 U/L Normal 17-[address] [facility] Comment on above: Performed By: #### L IPID, CMP #### [facility] [address] [address] Anh Ritika Bilirubin [Mass/Vol] 0.3 mg/dL Normal 0.2-1.3 [facility] Comment on above: Performed By: #### L IPID, CMP #### [facility] [address] [address] Anh Ritika Calcium [Mass/Vol] 9.3 mg/dL Normal 8.4-10.2 [facility] Comment on above: Performed By: #### L IPID, CMP #### [facility] [address] [place] [address] Anh Ritika Chloride [Moles/Vol] 103 mmol/L Normal 98-[address] [facility] Comment on above: Performed By: #### L IPID, CMP #### [facility] [address] [place] [address] Anh Ritika CO2 [Moles/Vol] 29.8 mmol/L Normal 22.0-30.0 [facility] Comment on above: Performed By: #### L IPID, CMP #### [facility] [address] [place] [address] Anh Ritika Creatinine [Mass/Vol] 1.02 mg/dL Normal 0.66-1.[address] [facility] Comment on above: Performed By: #### L IPID, CMP #### [facility] [address] [place] [address] Anh Ritika EGFR-AF DOMINICAN >60 Normal >=60 [facility] Comment on above: Performed By: #### L IPID, CMP #### [facility] [address] [place] [address] Anh Ritika EGFR-NON AF DOMINICAN >60 Normal >=[address] [facility] Comment on above: Performed By: #### L IPID, CMP #### [facility] [address] [place] [address] Anh Ritika Globulin (S) [Mass/Vol] 3.8 g/dL Normal [facility] Comment on above: Performed By: #### L IPID, CMP #### [facility] [address] [place], [place] [address] Anh Ritika Glucose [Mass/Vol] 97 mg/dL Normal 74-106 [facility] Comment on above: Performed By: #### L IPID, CMP #### [facility] [address] [place], [place] [address] Anh Ritika Potassium [Moles/Vol] 4.2 mmol/L Normal 3.4-5.[address] [facility] Comment on above: Performed By: #### L IPID, CMP #### [facility] [address] [id number] Anh Ritika Protein [Mass/Vol] 7.9 g/dL Normal 6.1-8.2 [facility] Comment on above: Performed By: #### L IPID, CMP #### [facility] [address] [id number] Anh Ritika Sodium [Moles/Vol] 141 mmol/L Normal 137-145 [facility] Comment on above: Performed By: #### L IPID, CMP #### [facility] [address] [id number] Anh Ritika Urea nitrogen [Mass/Vol] 13.0 mg/dL Normal 9.0-20.[address] [facility] Comment on above: Performed By: #### L IPID, CMP #### [facility] [address] [id number] Anh Ritika Urea nitrogen/Creatinine [Mass ratio] 12.7 mg/mg Normal [facility] Comment on above: Performed By: #### L IPID, CMP #### [facility] [address] [place], [place] [address] Anh Ritika Coding Summary.on 11-02-2019 Coding Summary. CODING DATE: 11/02/2019 FINAL [facility] STATUS: Home (Routine DC) PAYOR: Tri [...] CphT Date Saved: 11/02/2019 04:52 pm Normal [facility] Provider Letteron 10-15-2019 Provider Letter October 15, 2019 NAIF PRICE [address] [place] [address] NAIF PRICE 1990 To Whom It May Concern, Please excuse above patient from work. May Return to Work On: 10/18/2019 Comments: COVID-19 TEST WAS NEGATIVE. Pt may return to work if symptoms are improving, no fever for 3 days without the use of Tylenol/Ibuprofen Sincerely, [facility] [address] [place] [address], [place] [address] Normal [facility] SARS-CoV-2, NAAon 10-15-2019 SARS CORONAVIRUS 2 RNA:PRTHR:PT:RESPIRAT ORY:ORD:PROBE.AMP.TAR Not Detected Not Detected [facility] Comment on above: Result Comment: This test was developed and its performance characteristics determined by [employer]. This test has not been FDA cleared [...] this assay. 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 Avoid touching face, eyes, nose, mouth. Be [...] Nausea/Vomiting, # 12 tab(s), Refills(s) 0, Pharmacy: [facility]/pharmacy #[id number], 168, cm, 10/11/19 10:36:00 EDT, Height/Length Measured, 109, kg, 10/11/19 10:36:00 EDT, Weight Measured XR Wrist 3+ Views Right Follow-up No qualifying data available Patient Education Viral Infections, Uziu-Wt-Ucrw Problem List/Past Medical History Ongoing Obesity Historical [...] only communication with the patient located at [address] [phone], with no one else. If it is determined that the patient should be evaluated in person, the patient will be directed to the appropriate clinic or venue. The patient or their guardian verbally consented to this visit. Phone time was 10 minutes discussing health issues with counseling and coordination of care. Normal [facility] Comment on above: Result Comment: Rylie [...] Document Reviewed: 07/09/2011 ExitCare? Patient Information ?2013 [employer]. Normal [facility] Vital Signs Date Time Vital Sign Value Performing Clinician Savita santiago 07-24-2021 16:30-0400 Body height 167.64 cm Isacc Justin Other [employer] Other 07-24-2021 16:30-0400 Body mass index (BMI) [Ratio] 37.6 kg/m2 Isacc Riveraormack Other [employer] Other 07-24-2021 16:30-0400 Body weight 105.69 kg Isacc Justin Other [employer] Other 07-24-2021 16:30-0400 Diastolic blood pressure 94 mm[Hg] Isacc Justin Other [employer] Other 07-24-2021 16:30-0400 Systolic blood pressure 143 mm[Hg] Isacc Chavarriaack Other [employer] Other Encounters Encounter Date Encounter Type Care Provider Facility Start: 04-10-2023 End: 04-10-2023 ambulatory SHAIKH LUCY Not Available Start: 07-24-2021 End: 07-24-2021 ambulatory Isacc Justin Other [employer] Other Start: 07-24-2021 Office outpatient ne w 45 minutes Isacc Anderson [facility] Start: 10-07-2020 End: 10-08-2020 ambulatory LOPEZ FAANTONIOD Facility:[facility] Start: 08-02-2020 End: 08-03-2020 ambulatory LOPEZ FAANTONIOD Facility:[facility] Payers Date Payer Category Payer Unknown [id number] [id number] [id number] 1990 Unknown [id number] [id number] 1990 Unknown [id number] [id number] [id number] 1959 Unknown [id number] Social History Date Type Detail Facility Sex Assigned At [facility] Other Evaluation note 07-24-2021 Note Date & Type Note Facility 07-24-2021 Evaluation note Encounter Date Diagnosis Assessment Notes July, Abdominal pain (ICD-10 - R10.9) July, Fecal urgency (ICD-10 - R15.2) [facility] Other Summary Purpose Family History No Family [...] section and content) DATE CREATED AUTHOR 11/03/2019 [facility] DATE CREATED AUTHOR AUTHOR'S ORGANIZ ATION 10/19/2020 [facility] DATE CREATED AUTHOR AUTHOR'S ORGANIZ ATION 08/23/2021 [facility] DATE CREATED AUTHOR AUTHOR'S ORGANIZ ATION 04/11/2023 [facility] EPIC REASON FOR VISIT (unrecogniz [...] BE BASED ON THE PRIMARY CLINICAL RECORDS. [employer] provides no warranty or guarantee of the accuracy or completeness of information in this document.
--- NOTE | 2024-06-08 07:37 | ED_ITS ---
HPI HPI - General Adult General Chief complaint: Nausea/Vomiting/Diarrhea Stated complaint: VOMITING, RUNNY NOSE, SORE THROAT Time Seen by Provider: 06/08/24 07:03 Source: patient Mode of arrival: walk-in Limitations: no limitations History of Present Illness HPI narrative: Patient states he has been ill for the last 4 days. He started out with runny stuffy nose and nasal discharge along with cough. In the last 36 hours he has had vomiting and runny stool. He states that vomiting is triggered by paroxysms of cough. He has not had fever or chills. Some generalized body aches are r eported. He denies urinary symptoms. Patient has a history of hypertension and genital herpes. He states he took illness his last blood pressure pill yesterday. He is also out of valacyclovir which she takes at a dose of 500 mg daily and has noticed a painful sore on his penis. He states that he does not have a PCP at this time and will be provided with a list. Related Data Home Medications ?Medication ?Instructions ?Recorded ?Confirmed amlodipine 5 mg tablet 5 mg PO DAILY 03/02/23 06/08/24 atorvastatin 20 mg tablet 20 mg PO DAILY 03/02/23 06/08/24 dicyclomine 10 mg capsule 10 mg PO QID PRN abdominal pain 03/02/23 06/08/24 pantoprazole 40 mg tablet,delayed 40 mg PO DAILY 03/02/23 03/02/23 release valacyclovir 500 mg tablet 500 mg PO DAILY 03/02/23 06/08/24 Previous Rx's ?Medication ?Instructions ?Recorded acetaminophen 300 mg-codeine 30 mg 1 tab PO Q6H PRN pain 5 days #20 03/02/23 tablet tabs penicillin V potassium 250 mg 250 mg PO QID 10 days #40 tabs 03/02/23 tablet albuterol sulfate 90 mcg/actuation 2 inh inhalation Q4H PRN shortness 12/12/23 aerosol inhaler of breath or wheezing #8.5 grams oovdbrnxeaqegxa-oxsjiegahsmtjhb-PP 10 ml PO Q6H PRN cold symptoms 12/12/23 2 mg-30 mg-10 mg/5 mL oral syrup #200 mL (Bromfed DM) ondansetron 4 mg disintegrating 4 mg PO Q6H PRN nausea and 09/27/24 tablet vomiting #12 tabs prednisone 20 mg tablet 60 mg (3 x 20 mg) PO DAILY 3 days 12/12/23 #9 tabs amlodipine 5 mg tablet 5 mg PO DAILY #30 tabs 06/08/24 dextromethorphan-guaifenesin ER 60 1 tab PO BID PRN cold symptoms #20 06/08/24 mg-1,200 mg tab,extend tabs release,12hr (Mucinex DM) ondansetron 4 mg disintegrating 4 mg PO Q6H PRN nausea and 06/08/24 tablet vomiting #10 tabs valacyclovir 500 mg tablet 500 mg PO DAILY #30 tabs 06/08/24 Allergies Allergy/AdvReac Type Severity Reaction Status Date / Time No Known Drug Allergies Allergy Verified 06/08/24 06:58 Opioid HPI Opioid Management Most Recent Opioid Data: Last Pain Scale 5 03/02/23 18:15 03/02/23 Review of Systems ROS Status of ROS 10 or more systems reviewed and unremark able except as noted in history and below PFSH PFSH Social History Little interest or pleasure in doing things: not at all Feeling down, depressed, or hopeless: not at all Exam Narrative Exam Narrative: Afebrile with a slightly elevated blood pressure 162/94. Obese in appearance. Nondistressed. HEENT exam is normal to inspection. Nares and oropharynx are clear. Neck is supple. Lung sounds are clear to auscultation bilaterally with good air entry. Heart has regular rate and rhythm. S1 and S2 are normal. Abdomen is protuberant, soft and nontender. There is no organomegaly or CVA tenderness. Patient has a superficial ulcer on the dorsum of the distal penis. Lower extremities are nontender. Skin is warm and dry. Constitutional Vital Signs, click to edit/add: Last Vital Signs Temp 99.7 F 06/08/24 06:59 Pulse 84 06/08/24 06:59 Resp 18 06/08/24 06:59 BP 162/94 H 06/08/24 06:59 Pulse Ox 99 06/08/24 06:59 O2 Del Method Room Air 06/08/24 06:59 Course Vital Signs Vital signs: Vital Signs Temperature 99.7 F 06/08/24 06:59 Pulse Rate 84 06/08/24 06:59 Respiratory Rate 18 06/08/24 06:59 Blood Pressure 162/94 H 06/08/24 06:59 Pulse Oximetry 99 06/08/24 06:59 Oxygen Delivery Method Room Air 06/08/24 06:59 Temperature 99.7 F 06/08/24 06:59 Pulse Rate 84 06/08/24 06:59 Respiratory Rate 18 06/08/24 06:59 Blood Pressure 162/94 H 06/08/24 06:59 Pulse Oximetry 99 06/08/24 06:59 Oxygen Delivery Method Room Air 06/08/24 06:59 Medical Decision Making MDM Narrative Medical decision making narrative: Patient presents with signs and symptoms of a viral illness and was reassured about the self-limiting factor of this condition. For symptomatic relief he is placed on Mucinex DM and Zofran. I am also providing him with 30-day prescriptions for valacyclovir 500 mg daily and amlodipine 5 mg daily. This sh ould give him enough time to find a PCP. A work note is provided for today and tomorrow and he is advised to return anytime for worsening symptoms. Differential Diagnosis Differential Diagnosis: Pneumonia, influenza, other viral illness, hypertension. Discharge Plan Discharge Stand Alone Forms: Work/School Release Chief Complaint: Nausea/Vomiting/Diarrhea Clinical Impression: Viral illness Patient Disposition: Home, Self-Care Time of Disposition Decision: 07:32 Condition: Good Mode of Transportation: Private Vehicle Prescriptions / Home Meds: New amlodipine 5 mg tablet 5 mg PO DAILY Qty: 30 0RF valacyclovir 500 mg tablet 500 mg PO DAILY Qty: 30 0RF dextromethorphan-guaifenesin [Mucinex DM] 60-1,200 mg tablet extended release 12 hr 1 tab PO BID PRN (Reason: cold symptoms) Qty: 20 0RF ondansetron 4 mg tablet,disintegrating 4 mg PO Q6H PRN (Reason: nausea and vomiting) Qty: 10 0RF No Action amlodipine 5 mg tablet 5 mg PO DAILY atorvastatin 20 mg tablet 20 mg PO DAILY dicyclomine 10 mg capsule 10 mg PO QID PRN (Reason: abdominal pain) pantoprazole 40 mg tablet,delayed release (DR/EC) 40 mg PO DAILY valacyclovir 500 mg tablet 500 mg PO DAILY acetaminophen-codeine 300-30 mg tablet 1 tab PO Q6H PRN (Reason: pain) 5 Days Qty: 20 0RF penicillin V potassium 250 mg tablet 250 mg PO QID 10 Days Qty: 40 0RF albuterol sulfate 90 mcg/actuation HFA aerosol inhaler 2 inh inhalation Q4H PRN (Reason: shortness of breath or wheezing) Qty: 8.5 0RF yonspvwdihhwace-xkmzxmumu-VA [Bromfed DM] 2-30-10 mg/5 mL syrup 10 ml PO Q6H PRN (Reason: cold symptoms) Qty: 200 0RF prednisone 20 mg tablet 60 mg PO DAILY 3 Days Qty: 9 0RF ondansetron 4 mg tablet,disintegrating 4 mg PO Q6H PRN (Reason: nausea and vomiting) Qty: 12 0RF Print Language: Liberian Instructions: Viral Syndrome (ED) Additional Instructions: Follow-up with primary care physician of choice for further management. Return for worsening symptoms. Referrals: Physician,Non-Staff, MD [Primary Care Provider] - 1 week
== END 2024-06-08 07:43 | disposition home or self-care (01) ==
PROVIDERS: Emergency Provider Emergency Medicine
DX: B34.9 Viral infection, unspecified (principal); A60.00 Herpesviral infection of urogenital system, unspecified; I10 Essential (primary) hypertension; Z79.899 Other long term (current) drug therapy
CPT/HCPCS: 99283

== ENCOUNTER 2024-07-02 13:57 | Outpatient (OUT) | payer BC, SELFPAY ==
--- NOTE | 2024-07-02 14:00 | CA_ITS ---
Patient Name: MERARY PRICE MR#: [id number] : 1990 Exam Date: 07/02/2024 Ordering Doctor: SAURABH AMADOR CNP ECHOCARDIOGRAM REPORT PROCEDURE: CA ECHO DOPPLER COMPLETE INDICATIONS: Heart murmur, chest pain, hypertension, smoker COMPARISON: None. DESCRIPTION: COMPLETE ECHOCARDIOGRAM Real-time transthoracic echocardiography with 2D, M-mode, spectral and color flow Doppler performed. QUALITY: Technical quality was good. LEFT VENTRICLE: Normal chamber size. Proximal septal hypertrophy (sigmoid septum). Normal systolic function. LV EF: Normal left ventricular ejection fraction, (60-65%). DIASTOLIC: Normal diastolic function. ATRIAL SEPTUM: Visually appears intact. LEFT ATRIUM: Normal chamber size. RIGHT ATRIUM: Normal chamber size. RIGHT VENTRICLE: Normal chamber size. Normal right ventricular systolic function. TRICUSPID VALVE: Normal mobility and thickness. No stenosis with no regurgitation. Unable to assess right-sided pressures due to lack of measurable tricuspid regurgitation. MITRAL VALVE: Normal mobility and thickness. No evidence of mitral valve stenosis. There is no mitral annular calcification. Trivial mitral regurgitation. AORTIC VALVE: Normal trileaflet appearance. No visible sclerosis. Normal leaflet mobility. No evidence of aortic valve stenosis. No aortic regurgitation. AORTIC ROOT: Normal diameter and appearance, measuring 2.8 cm. Ascending aorta is normal in size, measuring 2.4 cm. PULMONIC VALVE: Normal thickness and mobility. No stenosis. No regurgitation. PERICARDIUM: No evidence of pericardial effusion. IVC: Collapses with inspirations. IVC is normal in size. PLEURA: CONCLUSION: 1. Normal left ventricular size and systolic function. Estimated LVEF is 60 to 65%. 2. Normal right ventricular size and systolic function. 3. Normal diastolic function. 4. No significant valvular dysfunction. 5. Unable to assess right-sided pressures due to lack of measurable tricuspid regurgitation. Adult Echocardiography Procedure Report Left Ventricle LVEDD (3.7 - 5.6 cm): 4.41 cm LVESD (2.2 - 4.0 cm): 2.98 cm LVIVS thickness (0.6 - 1.2 cm): 1.11 cm LVPW thickness (0.5 - 1.0 cm): 0.99 cm e': 0.19 m/s E - e': 4.52 LVOT Max Gradient: 5.04 mm[Hg] LVOT Area (cm2): 1.12 m/s Peak Velocity (LVOT): 1.12 m/s Mean Velocity (LVOT): 0.71 m/s LVOT Diameter 2.38 cm Left Atrium LA Volume Index (2D A2C): 26.85 ml/m2 Left Atrium Systolic Dimension: 3.93 cm Mitral Valve MV E to A Ratio: 1.37 Mitral Valve A-Wave Peak Velocity: 0.64 m/s Mitral Valve E-Wave Peak Velocity: 0.88 m/s Right Ventricle Aorta AO Root Diam: 2.76 cm Ascending Ao Diam: 2.44 cm Aortic Valve AoV Area (Peak Luis): 4.18 cm2, 4.18 cm2 AoV Area (VTI): 4.53 cm2, 4.53 cm2 Peak Velocity(Antegrade Flow): 1.19 m/s Peak Gradient(Antegrade Flow): 5.68 mm[Hg] Mean Velocity(Antegrade Flow): 0.75 m/s Mean Gradient(Antegrade Flow): 2.68 mm[Hg] Velocity Time Integral: 22.55 cm Tricuspid Valve Pulmonic Valve Mean Gradient: 2.80 mm[Hg] Mean Velocity: 0.77 m/s Peak Velocity: 1.24 m/s, 1.22 m/s Peak Gradient: 5.95 mm[Hg], 6.12 mm[Hg] Right Atrium Right Atrium Systolic Pressure: 44.76 ml, 44.76 ml Dictated by: Siddharth Ness M.D. on 07/02/2024 at 17:17 Approved by: Siddharth Ness M.D. on 07/02/2024 at 17:20
--- OUTSIDE RECORDS SUMMARY | 2024-07-02 14:03 | XMS_ITS | CCD ---
Author Organization [facility] Care Team Providers Care [place] Worker Name Role Phone SHAIKH MORENO Primary Care Unavailable FAWWAD, LOPEZ Admitting Unavailable FAELMER, LOPEZ Attending Unavailable FAWWAD, LOPEZ Consulting Unavailable FAWWAD, LOPEZ Primary Care Unavailable FAWWAD, LOPEZ Admitting Unavailable Manolo Almanza Consulting Unavailable FAWKIMBERLEE, LOPEZ Attending Unavailable FAELMER, LOPEZ Consulting Unavailable Isacc Anderson Unavailable Shaikh Moreno MD Unavailable Tony Eller MD Primary Care Provider [phone] GRISEL ANN Attending Unavailable Medications Current Medications Medication Drug Class(es) Dates Sig (Normalized) Sig (Original) amLODIPine 10 mg oral tablet (5 sources) Dihydropyridine Calcium Channel Cassandra Start: 06-16-2024 End: 09-14-2024 take 1 tablet by mouth once daily amLODIPine (Norvasc) 10 MG tablet Indications: Primary hypertension (CMS/HCC) Take 1 tablet (10 mg) by mouth Daily 90 tablet 06/16/2024 09/14/2024 Active Start: 08-12-2023 End: 06-16-2024 take 1 tablet by mouth in the morning amLODIPine (Norvasc) 5 MG tablet Indications: Primary hypertension (CMS/HCC) Take 1 tablet (5 mg) by mouth in the morning. 90 tablet 1 08/12/2023 06/16/2024 Discontinued (Ineffective) atorvastatin 20 mg oral tablet (5 sources) HMG-CoA Reductase Inhibitor Start: 08-12-2023 End: 12-13-2024 take 1 tablet by mouth in the morning atorvastatin (Lipitor) 20 MG tablet Indications: Hyperlipidemia, unspecified hyperlipidemia type (CMS/HCC) Take 1 tablet (20 mg) by mouth in the morning. 90 tablet 06/16/2024 12/13/2024 Active dicyclomine hydrochloride 10 mg oral capsule (3 sources) Anticholinergic Start: 09-29-2023 take 1 capsule by mouth four times daily as needed for pain dicyclomine (Bentyl) 10 MG capsule Indications: Irritable bowel syndrome with diarrhea TAKE 1 CAPSULE BY MOUTH 4 TIMES A DAY NEEDED FOR ABDOMINAL CRAMPS/ PAIN 120 capsule 3 09/29/2023 Active ondansetron 4 mg disintegrating oral tablet (3 sources) Serotonin-3 Receptor Antagonist Start: 06-08-2024 ondansetron ODT (Zofran-ODT) 4 MG disintegrating tablet DISSOLVE 1 TABLET ON THE TONGUE EVERY 6 HOURS NEEDED FOR NAUSEA AND VOMITING 06/08/2024 Active pantoprazole 40 mg delayed release oral tablet (5 sources) Proton Pump Inhibitor Start: 09-29-2023 End: 09-14-2024 take 1 tablet by mouth once daily pantoprazole (ProtoNix) 40 MG EC tablet Indications: Irritable bowel syndrome with diarrhea Take 1 tablet (40 mg) by mouth Daily 90 tablet 06/16/2024 09/14/2024 Active valACYclovir 500 mg oral tablet (5 sources) Herpesvirus Nucleoside Analog DNA Polymerase Inhibitor, Herpes Simplex Virus Nucleoside Analog DNA Polymerase Inhibitor, Herpes Zoster Virus Nucleoside Analog DNA Polymerase Inhibitor Start: 07-02-2023 End: 09-14-2024 take 1 tablet by mouth once daily valACYclovir (Valtrex) 500 MG tablet Indications: H/O herpes genitalis Take 1 tablet (500 mg) by mouth Daily 90 tablet 06/16/2024 09/14/2024 Active Completed/Discontinued Medications Medication Drug Class(es) Dates Sig (Normalized) Sig (Original) 12 hr dextromethorphan hydrobromide 60 mg / guaiFENesin 1200 mg extended release oral tablet (3 sources) Uncompetitive E-mqnnfo-V-aspartat e Receptor Antagonist, Sigma-1 Agonist Start: 06-08-2024 End: 06-16-2024 take 60-1200 mg by mouth every twelve hours as needed Dextromethorphan- guaiFENesin ([facility] Mucus DM Extended Release) 60-1200 MG tablet sustained-release 12 hour TAKE 1 TABLET BY MOUTH TWICE A DAY NEEDED FOR COLD SYMPTOMS 06/08/2024 06/16/2024 Discontinued (Therapy completed) varenicline 1 mg oral tablet (2 sources) Partial Cholinergic Nicotinic Agonist Start: 06-09-2023 End: 06-16-2024 take 1 tablet by mouth once in the morning varenicline (Chantix Continuing Month Anthony) 1 MG tablet Indications: Tobacco abuse Take 1 tablet (1 mg) by mouth in the morning and 1 tablet (1 mg) before bedtime. Take with full glass of water.. 60 tablet 2 06/09/2023 06/16/2024 Discontinued (Therapy completed) Problems Active Problems Problem Classification Problem Date Documented Da te Episodic/Chronic Abdominal pain (6 sources) Unspecified abdominal pain; Translations: [Abdominal pain] Onset: 10-07-2020 Resolved: 07-24-2021 Episodic Diabetes mellitus without complication (5 sources) Prediabetes; Translations: [Prediabetes] Onset: 04-10-2023 04-10-2023 Episodic Disorders of lipid metabolism (10 sources) Mixed hyperlipidemia; Translations: [Mixed hyperlipidemia] Onset: 04-10-2023 Resolved: 06-16-2024 06-16-2024 Chronic Essential hypertension (5 sources) Essential hypertension; Translations: [Essential (primary) hypertension] Onset: 04-10-2023 04-10-2023 Chronic Heart valve disorders (6 sources) Heart murmur; Translations: [Cardiac murmur, unspecified] Onset: 06-16-2024 06-16-2024 Episodic Other gastrointestinal disorders (5 sources) Irritable bowel syndrome with diarrhea; Translations: [Irritable bowel syndrome with diarrhea] Onset: 04-10-2023 04-10-2023 Chronic Other infections; including parasitic (5 sources) History of sexually transmitted disease; Translations: [Personal history of other infectious and parasitic diseases] Onset: 04-10-2023 04-10-2023 Episodic Other screening for suspected conditions (not mental disorders or infectious disease) (2 sources) Encounter for screening for diabetes mellitus; Translations: [Encounter for screening for lipoid disorders] Onset: 08-10-2020 Episodic Substance-related disorders (5 sources) Tobacco dependence syndrome; Translations: [Nicotine dependence, unspecified, uncomplicated] Onset: 06-16-2024 06-16-2024 Chronic Past or Other Problems Problem Classification Problem Date Documented Da te Episodic/Chronic Other gastrointestinal disorders (1 source) Fecal urgency Onset: 07-24-2021 Resolved: 07-24-2021 Episodic Other upper respiratory infections (3 sources) Acute upper respiratory infection; Translations: [Acute upper respiratory infection, unspecified] Onset: 04-10-2023 Resolved: 06-16-2024 04-10-2023 Episodic Residual codes; unclassified (3 sources) Tobacco user; Translations: [Tobacco use] Onset: 04-10-2023 Resolved: 06-16-2024 06-16-2024 Episodic Results Test Name Value Interpretation Reference Range Facility Gerald 08-17-2021 L Specimen: [id number] Received: 08/17/21 Status: ALLISON Mccray Num: [id number] Spec Type: Surgical Subm Dr: Isacc Anderson MD Tissues: A Duodenum - Biopsy (DUODENAL BX) B Colon Biopsy (SURVEILLANCE COLON BX) Procedures: HE Stain/4, Gross/Micro L4/2 Patient Age/Sex Location Account Attending Physician Naif Price/Edgardo [id number] Isacc Anderson MD SPEC NUM: [id number] RECD: 08/17/21 STATUS: ALLISON MCCRAY NUM: [id number] ANKIT: 08/17/21 [facility] DR: Isacc Anderson MD ENTERED: 08/17/21 [facility] DR: RENETTA TYPE: Surgical DEPT: S ORDERED: HE Stain/4, [...] Fixative: 10% Neutral Buffered Formalin (SM/YJ) Specimen: [id number] Received: 08/17/21 Status: ALLISON Mccray Num: [id number] Spec Type: Surgical Subm Dr: Isacc Anderson MD Tissues: A Duodenum - Biopsy (DUODENAL BX) B Colon Biopsy (SURVEILLANCE COLON BX) Procedures: HE Stain/4, Gross/Micro L4/2 Patient: Naif Price [id number] (Continued) Specimen: [id number] Received: 08/17/21 (Continued) Signed (signature on file) Bari Ann MD 08/20/21 1413 Specimen: [id number] Received: 08/17/21 Status: EKATERINAT Jaleesaq Num: [id number] Spec Type: Surgical Subm Dr: Isacc Anderson MD Tissues: A Duodenum - Biopsy (DUODENAL BX) B Colon Biopsy (SURVEILLANCE COLON BX) Procedures: HE Stain/4, Gross/Micro L4/2 Patient: Naif Price [id number] (Continued) Specimen: [id number] Received: 08/17/21 (Continued) Microscopic Description A. Two H E slides are reviewed. Microscopic examination is performed. B. Two H E slides are reviewed. Microscopic examination is performed. This case is interpreted at [facility], [place], [place]. CPT Codes A. 45745 B. 67283 Specimen: [id number] Received: 08/17/21 Status: ALLISON Mccray Num: [id number] Spec Type: Surgical Subm Dr: Isacc Anderson MD Tissues: A Duodenum - Biopsy (DUODENAL BX) B Colon Biopsy (SURVEILLANCE COLON BX) Procedures: HE Stain/4, Gross/Micro L4/2 Patient: Naif Price [id number] (Continued) Signed (signature on file) Bari Ann MD 08/20/21 1413 Normal [facility] Bowel Disorders [place] Antigliadin IgG 3 Normal 0-19 [facility] Comment on above: Order Comment: Reaso n for Exam Abdominal pain;Fecal urgency Result Comment: Nega tive 0 - 19 Weak Positive 20 - 30 Moderate to Strong Positive >30 Performed By: #### C MP, CBC, THYROID SC #### [facility] [address] [place] [address] [place] #### BOWEL CASC #### [facility] , Atypical pANCA Negative Normal Negative [facility] Comment on above: Order Comment: Reaso n for Exam Abdominal pain;Fecal urgency Performed By: #### C MP, CBC, THYROID SC #### [facility] [address] [place] [address] [place] #### BOWEL CASC #### [facility] , Bowel Disorders [place] Negative Normal Negative [facility] Comment on above: Order Comment: Reaso n for Exam Abdominal pain;Fecal urgency Performed By: #### C MP, CBC, THYROID SC #### [place] [address] [place] #### BOWEL CASC #### [facility] , Note [place] continues Normal . [facility] Comment on above: Order Comment: Reaso n for Exam Abdominal pain;Fecal urgency Performed By: #### C MP, CBC, THYROID SC #### [place] [address] [place] #### BOWEL CASC #### [facility] , Note Normal . [facility] Comment on above: Order Comment: Reaso n for Exam Abdominal pain;Fecal urgency Result Comment: Sugg estive of irritable bowel syndrome (IBS). Careful evaluation of the patient's history, physical examination, and application of Alonso III diagnostic criteria may help to rule in or rule out the diagnosis of IBS. Subsequent testing for Fecal Calprotectin (708300) may be recommended. If IBD is strongly suspected, subsequent testing with the Crohn's Disease Prognostic Profile (056233) that includes anti-glycan antibodies AMCA, ALCA, ACCA, and Nawaf may aid in differential diagnosis. Performed at: [facility] [id number] [employer] Receiver: Gary Villegas MD, Phone: [phone] PERFORMED BY: [place] [address] PATHOLOGIST BOWL ATTENDANT LASHELL LEIGH M.D. Performed By: #### C MP, CBC, THYROID SC #### [place] [address] [place] #### BOWEL CASC #### [facility] , Saccharomyces cerevisiae, IgG < 20.0 Normal 0.0-24.9 [facility] Comment on above: Order Comment: Reaso n for Exam Abdominal pain;Fecal urgency Result Comment: Nega tive <20.0 Equivocal 20.1 - 24.9 Positive >or= 25.0 Performed By: #### C MP, CBC, THYROID SC #### [place] [address] [place] #### BOWEL CASC #### [facility] , COVID-19 FRon 08-14-2021 SARS-CoV-2 (COVID-19) RNA GREGORY+probe Ql (Unsp spec) Negative Normal Negative [facility] Comment on above: Order Comment: Healt hcare Worker?: N Result Comment: Testing for SARS-CoV-2 by RT-PCR This test was developed and its performance characteristics determined by [employer] and validated at the [facility]. This test has not been FDA [...] is terminated or revoked sooner. PERFORMED BY: [place] [address] PATHOLOGIST BOWL ATTENDANT LASHELL LEIGH M.D. Performed By: #### C OVID 19 [facility] [place] [facility] [place] #### [address] Complete Blood Count Auto Di ffon 08-14-2021 Basophils (Bld) [#/Vol] 0.0 10*3/uL Normal 0.0-0.2 [facility] Comment on above: Order Comment: Reaso n for Exam Abdominal pain;Fecal urgency Result Comment: PERF ORMED BY: [place] [address] PATHOLOGIST BOWL ATTENDANT LASHELL LEIGH M.D. Performed By: #### C MP, CBC, THYROID SC #### [facility] [address] [place] [address] [place] #### BOWEL CASC #### [facility] , Basophils/100 WBC (Bld) 0.5 % Normal . [facility] Comment on above: Order Comment: Reaso n for Exam Abdominal pain;Fecal urgency Performed By: #### C MP, CBC, THYROID SC #### [address] #### BOWEL CASC #### [facility] , Eosinophils (Bld) [#/Vol] 0.1 10*3/uL Normal 0.0-0.45 [facility] Comment on above: Order Comment: Reaso n for Exam Abdominal pain;Fecal urgency Performed By: #### C MP, CBC, THYROID SC #### [address] #### BOWEL CASC #### [facility] , Eosinophils/100 WBC (Bld) 1.3 % Normal . [facility] Comment on above: Order Comment: Reaso n for Exam Abdominal pain;Fecal urgency Performed By: #### C MP, CBC, THYROID SC #### [address] #### BOWEL CASC #### [facility] , Erythrocyte distribution width (RBC) [Ratio] 13.5 % Normal 12.0-14.8 [facility] Comment on above: Order Comment: Reaso n for Exam Abdominal pain;Fecal urgency Performed By: #### C MP, CBC, THYROID SC #### [place] [address] [place] #### BOWEL CASC #### [facility] , Hematocrit (Bld) [Volume fraction] 47.1 % Normal 38.8-50.0 [facility] Comment on above: Order Comment: Reaso n for Exam Abdominal pain;Fecal urgency Performed By: #### C MP, CBC, THYROID SC #### [place] [address] [place] #### BOWEL CASC #### [facility] , Hemoglobin (Bld) [Mass/Vol] 15.7 g/dL Normal 13.0-17.0 [facility] Comment on above: Order Comment: Reaso n for Exam Abdominal pain;Fecal urgency Performed By: #### C MP, CBC, THYROID SC #### [address] #### BOWEL CASC #### [facility] , Lymphocytes (Bld) [#/Vol] 1.5 10*3/uL Normal 1.00-4.8 [facility] Comment on above: Order Comment: Reaso n for Exam Abdominal pain;Fecal urgency Performed By: #### C MP, CBC, THYROID SC #### [address] #### BOWEL CASC #### [facility] , Lymphocytes/100 WBC (Bld) 21.2 % Normal . [facility] Comment on above: Order Comment: Reaso n for Exam Abdominal pain;Fecal urgency Performed By: #### C MP, CBC, THYROID SC #### [address] #### BOWEL CASC #### [facility] , MCH (RBC) [Entitic mass] 28.1 pg Normal 27.5-35.2 [facility] Comment on above: Order Comment: Reaso n for Exam Abdominal pain;Fecal urgency Performed By: #### C MP, CBC, THYROID SC #### [place] [address] [place] #### BOWEL CASC #### [facility] , MCV (RBC) [Entitic vol] 84.5 fL Normal 83.5-101 [facility] Comment on above: Order Comment: Reaso n for Exam Abdominal pain;Fecal urgency Performed By: #### C MP, CBC, THYROID SC #### [place] [address] [place] #### BOWEL CASC #### [facility] , Mean Corpuscular HGB Conc 33.3 g/dL Normal 32.5-35.6 [facility] Comment on above: Order Comment: Reaso n for Exam Abdominal pain;Fecal urgency Performed By: #### C MP, CBC, THYROID SC #### [place] [address] [place] #### BOWEL CASC #### [facility] , Monocytes (Bld) [#/Vol] 0.7 10*3/uL Normal 0.0-0.8 [facility] Comment on above: Order Comment: Reaso n for Exam Abdominal pain;Fecal urgency Performed By: #### C MP, CBC, THYROID SC #### [address] #### BOWEL CASC #### [facility] , Monocytes/100 WBC (Bld) 10.5 % Normal . [facility] Comment on above: Order Comment: Reaso n for Exam Abdominal pain;Fecal urgency Performed By: #### C MP, CBC, THYROID SC #### [place] [address] [place] #### BOWEL CASC #### [facility] , Neutrophils (Bld) [#/Vol] 4.6 10*3/uL Normal 1.8-7.7 [facility] Comment on above: Order Comment: Reaso n for Exam Abdominal pain;Fecal urgency Performed By: #### C MP, CBC, THYROID SC #### [place] [address] [place] #### BOWEL CASC #### [facility] , Neutrophils/100 WBC (Bld) 66.5 % Normal . [facility] Comment on above: Order Comment: Reaso n for Exam Abdominal pain;Fecal urgency Performed By: #### C MP, CBC, THYROID SC #### [place] [address] [place] #### BOWEL CASC #### [facility] , Nucleated RBC/100 WBC (Bld) [Ratio] 0.1 % Normal 0-0.5 [facility] Comment on above: Order Comment: Reaso n for Exam Abdominal pain;Fecal urgency Performed By: #### C MP, CBC, THYROID SC #### [facility] [address] [place] [address] #### BOWEL CASC #### [facility] , Platelet mean volume (Bld) [Entitic vol] 8.4 fL Normal 6.6-10.1 [facility] Comment on above: Order Comment: Reaso n for Exam Abdominal pain;Fecal urgency Performed By: #### C MP, CBC, THYROID SC #### [address] #### BOWEL CASC #### [facility] , Platelets (Bld) [#/Vol] 255 10*3/uL Normal 150-450 [facility] Comment on above: Order Comment: Reaso n for Exam Abdominal pain;Fecal urgency Performed By: #### C MP, CBC, THYROID SC #### [address] #### BOWEL CASC #### [facility] , RBC (Bld) [#/Vol] 5.58 10*6/uL Normal 3.90-5.60 [facility] Comment on above: Order Comment: Reaso n for Exam Abdominal pain;Fecal urgency Performed By: #### C MP, CBC, THYROID SC #### [place] [address] [place] #### BOWEL CASC #### [facility] , WBC (Bld) [#/Vol] 6.9 10*3/uL Normal 4.5-11.[address] [facility] Comment on above: Order Comment: Reaso n for Exam Abdominal pain;Fecal urgency Performed By: #### C MP, CBC, THYROID SC #### [place] [address] [place] #### BOWEL CASC #### [facility] , Comprehensive Metabolic Pane gerald 08-14-2021 Albumin [Mass/Vol] 3.9 g/dL Normal 3.2-5.[address] [facility] Comment on above: Order Comment: Reaso n for Exam Abdominal pain;Fecal urgency Performed By: #### C MP, CBC, THYROID SC #### [facility] [address] [place] [address] [place] #### BOWEL CASC #### [facility] , Albumin/Globulin [Mass ratio] 1.3 {ratio} Normal [facility] Comment on above: Order Comment: Reaso n for Exam Abdominal pain;Fecal urgency Performed By: #### C MP, CBC, THYROID SC #### [address] #### BOWEL CASC #### [facility] , ALP [Catalytic activity/Vol] 91 U/L Normal 32-92 [facility] Comment on above: Order Comment: Reaso n for Exam Abdominal pain;Fecal urgency Performed By: #### C MP, CBC, THYROID SC #### [facility] [address] [place] [address] [place] #### BOWEL CASC #### [facility] , ALT [Catalytic activity/Vol] 49 U/L Normal 10-60 [facility] Comment on above: Order Comment: Reaso n for Exam Abdominal pain;Fecal urgency Performed By: #### C MP, CBC, THYROID SC #### [facility] [address] [place] [address] [place] #### BOWEL CASC #### [facility] , AST [Catalytic activity/Vol] 34 U/L Normal 10-42 [facility] Comment on above: Order Comment: Reaso n for Exam Abdominal pain;Fecal urgency Performed By: #### C MP, CBC, THYROID SC #### [facility] [address] [place] [address] [place] #### BOWEL CASC #### [facility] , Bilirubin [Mass/Vol] 0.5 mg/dL Normal 0.3-1.2 [facility] Comment on above: Order Comment: Reaso n for Exam Abdominal pain;Fecal urgency Performed By: #### C MP, CBC, THYROID SC #### [facility] [address] [place] [address] [place] #### BOWEL CASC #### [facility] , Calcium [Mass/Vol] 8.9 mg/dL Normal 8.2-10.[address] [facility] Comment on above: Order Comment: Reaso n for Exam Abdominal pain;Fecal urgency Performed By: #### C MP, CBC, THYROID SC #### [address] #### BOWEL CASC #### [facility] , Chloride [Moles/Vol] 104 mmol/L Normal 95-114 [facility] Comment on above: Order Comment: Reaso n for Exam Abdominal pain;Fecal urgency Performed By: #### C MP, CBC, THYROID SC #### [address] #### BOWEL CASC #### [facility] , CO2 [Moles/Vol] 25.0 mmol/L Normal 22.0-30.0 [facility] Comment on above: Order Comment: Reaso n for Exam Abdominal pain;Fecal urgency Performed By: #### C MP, CBC, THYROID SC #### [address] #### BOWEL CASC #### [facility] , Creatinine [Mass/Vol] 0.98 mg/dL Normal 0.64-1.27 [facility] Comment on above: Order Comment: Reaso n for Exam Abdominal pain;Fecal urgency Performed By: #### C MP, CBC, THYROID SC #### [place] [address] [place] #### BOWEL CASC #### [facility] , Estimated GFR ( Kari > 60 Normal [facility] Comment on above: Order Comment: Reaso n for Exam Abdominal pain;Fecal urgency Result Comment: GFR estimated reference range: According to KDOQI guidelines, <60 ml/min/1.73m2 is sufficient to diagnose a patient with chronic kidney disease. Performed By: #### C MP, CBC, THYROID SC #### [place] [address] [place] #### BOWEL CASC #### [facility] , Estimated GFR (Non- Am > 60 [facility] Comment on above: Order Comment: Reaso n for Exam Abdominal pain;Fecal urgency Performed By: #### C MP, CBC, THYROID SC #### [place] [address] [place] #### BOWEL CASC #### [facility] , Globulin (S) [Mass/Vol] 2.9 g/dL Normal [facility] Comment on above: Order Comment: Reaso n for Exam Abdominal pain;Fecal urgency Performed By: #### C MP, CBC, THYROID SC #### [place] [address] [place] #### BOWEL CASC #### [facility] , Glucose [Mass/Vol] 100 mg/dL Normal 70-[address] [facility] Comment on above: Order Comment: Reaso n for Exam Abdominal pain;Fecal urgency Result Comment: [facility] Glucose Reference Range is dependent on time and content of last meal. Glucose of more than 200 mg/dL in a nonstressed, ambulatory subject supports the diagnosis of Diabetes Mellitus. ADA recommended reference range Performed By: #### C MP, CBC, THYROID SC #### [place] [address] [place] #### BOWEL CASC #### [facility] , Potassium [Moles/Vol] 4.0 mmol/L Normal 3.5-5.1 [facility] Comment on above: Order Comment: Reaso n for Exam Abdominal pain;Fecal urgency Performed By: #### C MP, CBC, THYROID SC #### [place] [address] [place] #### BOWEL CASC #### [facility] , Protein [Mass/Vol] 6.8 g/dL Normal 6.1-7.[address] [facility] Comment on above: Order Comment: Reaso n for Exam Abdominal pain;Fecal urgency Performed By: #### C MP, CBC, THYROID SC #### [facility] [address] [place] [address] [place] #### BOWEL CASC #### [facility] , Sodium [Moles/Vol] 137 mmol/L Normal 136-[address] [facility] Comment on above: Order Comment: Reaso n for Exam Abdominal pain;Fecal urgency Performed By: #### C MP, CBC, THYROID SC #### [address] #### BOWEL CASC #### [facility] , Urea nitrogen [Mass/Vol] 14 mg/dL Normal 9-23 [facility] Comment on above: Order Comment: Reaso n for Exam Abdominal pain;Fecal urgency Performed By: #### C MP, CBC, THYROID SC #### [place] [address] [place] #### BOWEL CASC #### [facility] , THYROID SCREENon 08-14-2021 Free T4 [Mass/Vol] 1.00 ng/dL Normal 0.61-1.[address] [facility] Comment on above: Order Comment: Reaso n for Exam Abdominal pain;Fecal urgency Performed By: #### C MP, CBC, THYROID SC #### [facility] [address] [place] [address] [place] #### BOWEL CASC #### [facility] , TSH Qn 1.53 m[IU]/L Normal 0.45-5.33 [facility] Comment on above: Order Comment: Reaso n for Exam Abdominal pain;Fecal urgency Result Comment: PERF ORMED BY: [place] [address] PATHOLOGIST BOWL ATTENDANT LASHELL LEIGH M.D. Performed By: #### C MP, CBC, THYROID SC #### [place] [address] [place] #### BOWEL CASC #### [facility] , US SINGLE QUAD RT UPPERon US [...] MANOLO ALMANZA Date: 2020-10-08 18:19 Normal [facility] CBC AUTO DIFFon 08-02-2020 BASO # 0.0 103/ul Normal 0.0-0.1 [facility] Comment on above: Performed By: #### C BC #### [facility] [address] [place] [address] Anh Ritika Basophils/100 WBC (Bld) 0.3 % Normal 0.2-2.0 [facility] Comment on above: Performed By: #### C BC #### [facility] [address] [place] [address] Anh Ritika EO # 0.1 103/ul Normal 0.0-0.7 [facility] Comment on above: Performed By: #### C BC #### [facility] [address] [place] [address] Anh Ritika Eosinophils/100 WBC (Bld) 1.3 % Normal 0.9-7.0 [facility] Comment on above: Performed By: #### C BC #### [facility] [address] [place], [place] [id number] Anh Ritika Erythrocyte distribution width (RBC) [Ratio] 13.2 % Normal 11.0-15.0 [facility] Comment on above: Performed By: #### C BC #### [facility] [address] [place] [id number] Anh Ritika Hematocrit (Bld) [Volume fraction] 48.8 % Normal 42.0-54.0 [facility] Comment on above: Performed By: #### C BC #### [facility] [address] [place], [place] [id number] Anh Yost Hemoglobin (Bld) [Mass/Vol] 16.0 g/dL Normal 14.0-18.0 [facility] Comment on above: Performed By: #### C BC #### [facility] [address] [place], [place] [id number] Ahnradha Yost IG # 0.11 10e3/ul Critically high 0.00-0.03 [facility] Comment on above: Performed By: #### C BC #### [facility] [address] [place] [address] Anhradha Yost IG % 1.3 % Critically high 0.0-0.5 [facility] Comment on above: Performed By: #### C BC #### [facility] [address] [place] [address] Anh Yost LYMPH # 1.8 103/ul Normal 1.2-3.8 [facility] Comment on above: Performed By: #### C BC #### [facility] [address] [place] [address] Anh Yost Lymphocytes/100 WBC (Bld) 20.4 % Critically low 20.5-60.0 [facility] Comment on above: Performed By: #### C BC #### [facility] [address] [place] [address] Anh Yost MANUAL DIFF REQ NO Normal [facility] Comment on above: Performed By: #### C BC #### [facility] [address] [place], [place] [id number] Anh Yost MCH (RBC) [Entitic mass] 28.4 pg Normal 25.9-34.0 [facility] Comment on above: Performed By: #### C BC #### [facility] [address] [place] [address] Anhradha Yost MCHC (RBC) [Mass/Vol] 32.8 g/dL Normal 29.9-35.2 [facility] Comment on above: Performed By: #### C BC #### [facility] [address] [place], [place] [address] Anh Yost MCV (RBC) [Entitic vol] 86.5 fL Normal 80.0-94.0 [facility] Comment on above: Performed By: #### C BC #### [facility] [address] [place] [id number] Anh Yost MONO # 0.6 103/ul Normal 0.3-0.8 [facility] Comment on above: Performed By: #### C BC #### [facility] [address] [place] [id number] Anh Yost Monocytes/100 WBC (Bld) 7.0 % Normal 1.7-12.0 [facility] Comment on above: Performed By: #### C BC #### [facility] [address] [place] [id number] Anh Bansalen NEUT # 6.1 103/ul Normal 1.4-6.5 [facility] Comment on above: Performed By: #### C BC #### [facility] [address] [place] [id number] Anh Yost Neutrophils/100 WBC (Bld) 69.7 % Normal 43.0-75.0 [facility] Comment on above: Performed By: #### C BC #### [facility] [address] [place] [id number] Anh Yost Platelet mean volume (Bld) [Entitic vol] 11.0 fL Normal 9.5-13.5 [facility] Comment on above: Performed By: #### C BC #### [facility] [address] [place] [id number] Anh Ritika PLT 270 103/ul Normal 150-450 [facility] Comment on above: Performed By: #### C BC #### [facility] [address] [place] [id number] Anh Ritika RBC 5.64 106/ul Normal 4.70-6.10 [facility] Comment on above: Performed By: #### C BC #### [facility] [address] [place], [place] [address] Anh Ritika WBC 8.8 103/ul Normal 4.0-11.0 [facility] Comment on above: Performed By: #### C BC #### [facility] [address] [place], [place] [address] Anh Ritika GLYCOHEMOGLOBIN A1Con 2020 ADA RECOMMENDATION ADA THERAPEUTIC TARGET 6.0 - 7.0 ACTION SUGGESTED > 7.0 Normal [facility] Comment on above: Performed By: #### A 1C #### [facility] [address] [place], [place] [address] Anh Ritika Glucose [Mass/Vol] 114 mg/dL Normal [facility] Comment on above: Performed By: #### A 1C #### [facility] [address] [place], [place] [id number] Anh Ritika HbA1c (Bld) [Mass fraction] 5.6 % Normal <=6.0 [facility] Comment on above: Performed By: #### A 1C #### [facility] [address] [place] [address] Anh Ritika LIPID PROFILEon 08-02-2020 CHOL-HDL RATIO NORM SEE BELOW Normal [facility] Comment on above: Result Comment: 3.3 - 4.4 LOW RISK 4.4 - 7.1 AVERAGE RISK 7.1 - 11.0 MODERATE RISK >11.0 HIGH RISK Performed By: #### L IPID, CMP #### [facility] [address] [place], [place] [id number] Anh Ritika Cholesterol [Mass/Vol] 193 mg/dL Normal <=200 [facility] Comment on above: Performed By: #### L IPID, CMP #### [facility] [address] [place] [id number] Anh Ritika Cholesterol in HDL [Mass/Vol] 30 mg/dL Normal [facility] Comment on above: Performed By: #### L IPID, CMP #### [facility] [address] [place], [place] [address] Anh Ritika Cholesterol in LDL [Mass/Vol] 118.2 mg/dL Normal [facility] Comment on above: Performed By: #### L IPID, CMP #### [facility] [address] [place], [place] [address] Anh Ritika Cholesterol.total/Cho lesterol in HDL [Mass ratio] 6.4 {ratio} Normal [facility] Comment on above: Performed By: #### L IPID, CMP #### [facility] [address] [place], [place] [address] Anh Ritika HDL NORMAL > or = 60 mg/dl - LOW CARDIOVASCULAR RISK <40 mg/dl - HIGH CARDIOVASCULAR RISK Normal [facility] Comment on above: Performed By: #### L IPID, CMP #### [facility] [address] [place] [id number] Anh Ritika LDL CALC NORMAL SEE BELOW Normal [facility] Comment on above: Result Comment: <100 mg/dl OPTIMAL 100 - 129 mg/dl NEAR OR ABOVE OPTIMAL 130 - 159 mg/dl BORDERLINE HIGH 160 - 189 mg/dl HIGH >190 mg/dl VERY HIGH Performed By: #### L IPID, CMP #### [facility] [address] [place] [address] Anh Ritika Triglyceride [Mass/Vol] 224 mg/dL Critically high <=150 [facility] Comment on above: Performed By: #### L IPID, CMP #### [facility] [address] [place] [id number] Anh Ritika VLDL CALC 44.8 mg/dL Normal [facility] Comment on above: Performed By: #### L IPID, CMP #### [facility] [address] [place] [id number] Anhradha Bansalen PROF 14(COMP METB)on 021 Albumin [Mass/Vol] 4.1 g/dL Normal 3.5-5.0 [facility] Comment on above: Performed By: #### L IPID, CMP #### [facility] [address] [place] [id number] Anh Ritika Albumin/Globulin [Mass ratio] 1.1 {ratio} Normal [facility] Comment on above: Performed By: #### L IPID, CMP #### [facility] [address] [place] [id number] Anh Ritika ALP [Catalytic activity/Vol] 105 U/L Normal 38-126 [facility] Comment on above: Performed By: #### L IPID, CMP #### [facility] [address] [place] [id number] Anh Ritika ALT [Catalytic activity/Vol] 77 U/L Critically high 21-72 [facility] Comment on above: Performed By: #### L IPID, CMP #### [facility] [address] [place] [address] Anh Ritika Anion gap [Moles/Vol] 12.4 mmol/L Normal [facility] Comment on above: Performed By: #### L IPID, CMP #### [facility] [address] [place] [address] Anh Ritika AST [Catalytic activity/Vol] 32 U/L Normal 17-59 [facility] Comment on above: Performed By: #### L IPID, CMP #### [facility] [address] [place] [address] Anh Ritika Bilirubin [Mass/Vol] 0.3 mg/dL Normal 0.2-1.3 [facility] Comment on above: Performed By: #### L IPID, CMP #### [facility] [address] [place] [address] Anh Ritika Calcium [Mass/Vol] 9.3 mg/dL Normal 8.4-10.2 [facility] Comment on above: Performed By: #### L IPID, CMP #### [facility] [address] [place] [address] Anh Ritika Chloride [Moles/Vol] 103 mmol/L Normal 98-107 [facility] Comment on above: Performed By: #### L IPID, CMP #### [facility] [address] [place] [id number] Anh Ritika CO2 [Moles/Vol] 29.8 mmol/L Normal 22.0-30.0 [facility] Comment on above: Performed By: #### L IPID, CMP #### [facility] [address] [place] [address] Anh Ritika Creatinine [Mass/Vol] 1.02 mg/dL Normal 0.66-1.25 [facility] Comment on above: Performed By: #### L IPID, CMP #### [facility] [address] [place] [id number] Anh Ritika EGFR-AF AUSTRALIAN >60 Normal >=60 [facility] Comment on above: Performed By: #### L IPID, CMP #### [facility] [address] [place] [address] Anh Ritika EGFR-NON AF AUSTRALIAN >60 Normal >=60 [facility] Comment on above: Performed By: #### L IPID, CMP #### [facility] [address] [place] [address] Anh Ritika Globulin (S) [Mass/Vol] 3.8 g/dL Normal [facility] Comment on above: Performed By: #### L IPID, CMP #### [facility] [address] [place] [address] Anh Ritika Glucose [Mass/Vol] 97 mg/dL Normal 74-106 [facility] Comment on above: Performed By: #### L IPID, CMP #### [facility] [address] [place] [address] Anh Ritika Potassium [Moles/Vol] 4.2 mmol/L Normal 3.4-5.0 [facility] Comment on above: Performed By: #### L IPID, CMP #### [facility] [address] [place] [address] Anh Ritika Protein [Mass/Vol] 7.9 g/dL Normal 6.1-8.2 [facility] Comment on above: Performed By: #### L IPID, CMP #### [facility] [address] [place] [address] Anh Ritika Sodium [Moles/Vol] 141 mmol/L Normal 137-145 [facility] Comment on above: Performed By: #### L IPID, CMP #### [facility] [address] [place] [address] Anh Yost Urea nitrogen [Mass/Vol] 13.0 mg/dL Normal 9.0-20.0 [facility] Comment on above: Performed By: #### L IPID, CMP #### [facility] [address] [place] [address] Anh Yost Urea nitrogen/Creatinine [Mass ratio] 12.7 mg/mg Normal [facility] Comment on above: Performed By: #### L IPID, CMP #### [facility] [address] [place] [address] Anh Yost Coding Summary.on 11-02-2019 Coding Summary. CODING DATE: 11/02/2019 FINAL [facility] STATUS: Home (Routine DC) PAYOR: Tri [...] Date Saved: 11/02/2019 04:52 pm Normal [facility] Provider Letteron 10-15-2019 Provider Letter October 15, 2019 [address] [place] [address] NAIF PRICE 1990 To Whom It May Concern, Please excuse above patient from work. May Return to Work On: 10/18/2019 Comments: COVID-19 TEST WAS NEGATIVE. Pt may return to work if symptoms are improving, no fever for 3 days without the use of Tylenol/Ibuprofen Sincerely, [facility] [address] [place] [address], [place] [address] Normal [facility] SARS-CoV-2, NAAon 10-15-2019 SARS CORONAVIRUS 2 RNA:PRTHR:PT:RESPIRAT ORY:ORD:PROBE.AMP.TAR Not Detected Not Detected [facility] Comment on above: Result Comment: This test was developed and its performance characteristics determined by [employer]. This test has not been FDA cleared [...] detected) result in this assay. 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 Avoid touching face, eyes, nose, mouth. Be [...] Nausea/Vomiting, # 12 tab(s), Refills(s) 0, Pharmacy: [id number], 168, cm, 10/11/19 10:36:00 EDT, Height/Length Measured, 109, kg, 10/11/19 10:36:00 EDT, Weight Measured XR Wrist 3+ Views Right Follow-up No qualifying data available Patient Education Viral Infections, Mich-Jf-Vmyx Problem List/Past Medical History Ongoing Obesity Historical [...] only communication with the patient located at [place] [phone], with no one else. If it is determined that the patient should be evaluated in person, the patient will be directed to the appropriate clinic or venue. The patient or their guardian verbally consented to this visit. Phone time was 10 minutes discussing health issues with counseling and coordination of care. Normal [facility] Comment on above: Result Comment: Elec tronically Signed By: BINA WILEY, LUAN Larry\.br\Date and Time Signed: 10/11/19 11:08 EDT Patient Educationon 10-11-19 20 Patient Education Family Medicine Viral Infections A [...] Document Reviewed: 07/09/2011 ExitCare? Patient Information ?2013 [facility] Vital Signs Date Time Vital Sign Value Performing Clinician Facility 06-16-2024 18:09-0400 Body mass index (BMI) [Ratio] 37.16 kg/m2 Grisel Ann COLLECTIONS ANALYST Work Phone: [facility] 06-16-2024 18:09-0400 Body temperature 98.8 [degF] Grisel Ann COLLECTIONS ANALYST Work Phone: [facility] 06-16-2024 18:09-0400 Body weight 104.42 kg Grisel Ann COLLECTIONS ANALYST Work Phone: [facility] 06-16-2024 18:09-0400 Diastolic blood pressure 78 mm[Hg] Grisel Ann COLLECTIONS ANALYST Work Phone: [facility] 06-16-2024 18:09-0400 Heart rate 79 /min Grisel Ann COLLECTIONS ANALYST Work Phone: [facility] 06-16-2024 18:09-0400 Respiratory rate 18 /min Grisel Ann COLLECTIONS ANALYST Work Phone: [facility] 06-16-2024 18:09-0400 SaO2% (BldA) [Mass fraction] 97 % Grisel Ann COLLECTIONS ANALYST Work Phone: [facility] 06-16-2024 18:09-0400 Systolic blood pressure 148 mm[Hg] Grisel Ann COLLECTIONS ANALYST Work Phone: [facility] 07-24-2021 16:30-0400 Body height 167.64 cm Isacc Justin Other [facility] Other 07-24-2021 16:30-0400 Body mass index (BMI) [Ratio] 37.6 kg/m2 [facility] Other [facility] Other 07-24-2021 16:30-0400 Body weight 105.69 kg Isacc Chavarriaack Other [facility] Other 07-24-2021 16:30-0400 Diastolic blood pressure 94 mm[Hg] Isacc Chavarriaack Other [facility] Other 07-24-2021 16:30-0400 Systolic blood pressure 143 mm[Hg] Isacc Anderson Other [facility] Other Encounters Encounter Date Encounter Type Care Provider Facility Start: 06-16-2024 End: 06-16-2024 Office outpatient visit 25 minutes Grisel Ann COLLECTIONS ANALYST Work Phone: [facility] Comment on above: Primary hypertension (CMS/HCC) (Primary Dx); Tobacco dependence; Mixed hyperlipidemia (CMS/HCC); Heart murmur; Pre-diabetes; Hyperlipidemia, unspecified hyperlipidemia type (CMS/HCC); Irritable bowel syndrome with diarrhea; H/O herpes genitalis Start: 06-16-2024 End: 06-16-2024 ambulatory GRISEL ANN Not Available Start: 06-16-2024 End: 06-16-2024 Bamboo flowsheet Grisel Ann COLLECTIONS ANALYST Work Phone: [facility] Start: 06-16-2024 End: 06-16-2024 Bamboo flowsheet Grisel Ann NP Work Phone: [facility] Start: 07-24-2021 End: 07-24-2021 ambulatory Isacc Anderson Other [facility] Other Start: 07-24-2021 Office outpatient ne w 45 minutes Isacc Anderson [facility] G[facility] Start: 10-07-2020 End: 10-08-2020 ambulatory [facility] Facility:H1 Start: 08-02-2020 End: 08-03-2020 ambulatory [facility] Facility: Plan of Treatment Date Care Activity Detail Author Start: 11-15-2024 Influenza vaccination Influenz a Vaccine (Season Ended) [facility] Start: 07-15-2024 End: 07-15-2024 Patient encounter procedure 07/15/2024 3:20 PM EDT Office Visit [facility] [address] [place] [address] Grisel Ann, OWEN [address] [place] [phone] [facility] Start: 06-16-2024 End: 06-16-2024 Patient encounter procedure 06/16/2024 6:00 PM EDT Office Visit [facility] [address] [place] [address] Grisel Ann, OWEN [address] [place] [phone] Primary hypertension (CMS/HCC) (Primary Dx); Tobacco dependence; Mixed hyperlipidemia (CMS/HCC) [facility] Comment on above: Primary hypertension (CMS/HCC) (Primary Dx); Tobacco dependence; Mixed hyperlipidemia (CMS/HCC) Start: 06-16-2024 End: 06-16-2025 CBC W Auto Differential panel - Blood CBC and differential Lab Routine Tobacco dependence Expected: 06/16/2024 (Approximate), Expires: 06/16/2025 [facility] Work Phone: Comment on above: Expected: 06/16/2024 (Approximate), Expires: 06/16/2025 Start: 06-16-2024 End: 06-16-2025 Comprehensive metabolic 2000 panel - Serum or Plasma Comprehensive metabolic panel Lab Routine Primary hypertension (CMS/HCC) Mixed hyperlipidemia (CMS/HCC) Expected: 06/16/2024 (Approximate), Expires: 06/16/2025 [facility] Comment on above: Expected: 06/16/2024 (Approximate), Expires: 06/16/2025 Start: 06-16-2024 End: 06-16-2026 Echocardiogram 2D complete Echocardiogram 2D complete Echocardiography Routine Heart murmur Expected: 06/16/2024 (Approximate), Expires: 06/16/2026 [facility] Comment on above: Expected: 06/16/2024 (Approximate), Expires: 06/16/2026 Start: 06-16-2024 End: 06-16-2025 Hemoglobin A1c/Hemoglobin.total in Blood Hemoglobin A1c Lab Routine Pre-diabetes Expected: 06/16/2024 (Approximate), Expires: 06/16/2025 [facility] Comment on above: Expected: 06/16/2024 (Approximate), Expires: 06/16/2025 Start: 06-16-2024 End: 06-16-2025 Lipid 1996 panel - Serum or Plasma Lipid panel Lab Routine Mixed hyperlipidemia (CMS/HCC) Expected: 06/16/2024 (Approximate), Expires: 06/16/2025 [facility] Comment on above: Expected: 06/16/2024 (Approximate), Expires: 06/16/2025 Start: 06-16-2024 End: 06-16-2025 Microalbumin/Creatinine panel in random Urine Microalbumin / creatinine, urine ratio Lab Routine Primary hypertension (CMS/HCC) Expected: 06/16/2024 (Approximate), Expires: 06/16/2025 [facility] Comment on above: Expected: 06/16/2024 (Approximate), Expires: 06/16/2025 Start: 06-16-2024 End: 06-16-2025 Thyrotropin [Units/volume] in Serum or Plasma TSH Lab Routine Mixed hyperlipidemia (CMS/HCC) Expected: 06/16/2024 (Approximate), Expires: 06/16/2025 [facility] Comment on above: Expected: 06/16/2024 (Approximate), Expires: 06/16/2025 Start: 06-16-2024 End: 06-16-2025 Urinalysis complete panel - Urine Urinalysis with reflex microscopic (clean catch) Lab Routine Primary hypertension ([facility]) Tobacco dependence Expected: 06/16/2024 (Approximate), Expires: 06/16/2025 [facility] Comment on above: Expected: 06/16/2024 (Approximate), Expires: 06/16/2025 Immunizations Immunization Date Immunization Notes Care Provider Lou fajardo 03-12-2002 hepatitis B vaccine, pediatric or pediatric/adolescent dosage Grisel Aichholz COLLECTIONS ANALYST Work Phone: [facility] 03-12-2002 measles, mumps and rubella virus vaccine Grisel Aichholz COLLECTIONS ANALYST Work Phone: [facility] 12-25-2001 hepatitis B vaccine, pediatric or pediatric/adolescent dosage Grisel Aichholz COLLECTIONS ANALYST Work Phone: [facility] 10-19-1999 hepatitis B vaccine, pediatric or pediatric/adolescent dosage Grisel Aichholz COLLECTIONS ANALYST Work Phone: [facility] 12-11-1994 diphtheria, tetanus toxoids and acellular pertussis vaccine, unspecified formulation Grisel Aichholz COLLECTIONS ANALYST Work Phone: [facility] 06-12-1992 diphtheria, tetanus toxoids and pertussis vaccine Grisel Aichholz COLLECTIONS ANALYST Work Phone: [facility] 06-12-1992 haemophilus influenz ae type b vaccine, conjugate unspecified formulation Grisel Aichholz COLLECTIONS ANALYST Work Phone: [facility] 06-12-1992 measles, mumps and rubella virus vaccine Grisel Aichholz COLLECTIONS ANALYST Work Phone: [facility] 06-12-1992 trivalent poliovirus vaccine, live, oral Grisel Aichholz COLLECTIONS ANALYST Work Phone: [facility] 04-28-1991 diphtheria, tetanus toxoids and pertussis vaccine Grisel Aichholz COLLECTIONS ANALYST Work Phone: [facility] 04-28-1991 haemophilus influenz ae type b vaccine, conjugate unspecified formulation Grisel Aichholz COLLECTIONS ANALYST Work Phone: [facility] 04-28-1991 trivalent poliovirus vaccine, live, oral Grisel Aichholz COLLECTIONS ANALYST Work Phone: [facility] 01-18-1991 diphtheria, tetanus toxoids and pertussis vaccine Grisel Aichholz COLLECTIONS ANALYST Work Phone: [facility] 01-18-1991 haemophilus influenz ae type b vaccine, conjugate unspecified formulation Grisel Aichholz COLLECTIONS ANALYST Work Phone: [facility] 01-18-1991 trivalent poliovirus vaccine, live, oral Grisel Aichholz COLLECTIONS ANALYST Work Phone: [facility] Payers Date Payer Category Payer [facility] [id number] 1990 Unknown [id number] 1990 Unknown [id number] 1990 Unknown [id number] 1959 Unknown [id number] Social History Date Type Detail Facility Start: 04-10-2023 End: 06-16-2024 Sex Assigned At [facility] [employer] Other Start: 04-10-2023 End: 06-16-2024 Tobacco smoking status NHIS Smokes tobacco daily [facility] History of tobacco use Cigarette Smoker [facility] Start: 04-10-2023 End: 06-16-2024 Alcoholic beverage intake Lifetime non-drinker (finding) [facility] Start: 04-10-2023 End: 06-16-2024 History of Social function [facility] Start: 1990 Sex assigned at Not on file [facility] Start: 06-16-2024 Alcohol Comment caffine:1 pot of coffee daily 1 energy drink daily, 4-5 cans of soda daily no more than 12 cans [facility] History of Present illness Narrative 06-16-2024 Grisel Ann NP - 06/16/2024 6:55 PM Sandip Ann NP - 06/16/2024 6:54 PM Sandip Ann NP - 06/16/2024 6:53 PM EDTHSHANE MATHEW - 06/16/2024 6:00 PM EDT Note Date & Type Note Facility 06-16-2024 History of Presen t illness Narrative Associated Problem(s): Irritable bowel syndrome with diarrhea Claudia abeben Associated Problem(s): Pre-diabetes Increase in urination, hx of pre diabetes Will check A1c Associated Problem(s): Heart murmur No prior known hx Will order ECHO Pt states he has been having to wake up in the middle of the night to urinate 1-2x nightly. Images from the original note were not included. Naif Price is a 33 y.o. male presents with chief complaint of No chief complaint on file. HPI: Hypertension This is a chronic problem. The current episode started more than 1 year ago. The problem is unchanged. The problem is uncontrolled. Associated symptoms include chest pain, malaise/fatigue and shortness of breath. Pertinent negatives include no anxiety, blurred vision or peripheral edema. There are no associated agents to hypertension. Risk factors for coronary artery disease include dyslipidemia, obesity, male gender and smoking/tobacco exposure. Past treatments include calcium channel blockers. The current treatment provides moderate improvement. There are no compliance problems. There is no history of CAD/RI, heart failure or PVD. SUBJECTIVE: MEDICATIONS: Current Outpatient Medications Medication Instructions amLODIPine (NORVASC) 10 mg, Oral, Daily atorvastatin (LIPITOR) 20 mg, Oral, Every morning dicyclomine (Bentyl) 10 MG capsule TAKE 1 CAPSULE BY MOUTH 4 TIMES A DAY NEEDED FOR ABDOMINAL CRAMPS/ PAIN ondansetron ODT (Zofran-ODT) 4 MG disintegrating tablet DISSOLVE 1 TABLET ON THE TONGUE EVERY 6 HOURS NEEDED FOR NAUSEA AND VOMITING pantoprazole (PROTONIX) 40 mg, Oral, Daily valACYclovir (VALTREX) 500 mg, Oral, Daily ALLERGIES: No Known Allergies REVIEW OF SYMPTOMS: Review of Systems Constitutional: Positive for malaise/fatigue. Negative for activity change, appetite change and unexpected weight change. HENT: Negative for ear pain, nosebleeds, sneezing, trouble swallowing and voice change. Eyes: Positive for photophobia. Negative for blurred vision, pain, discharge and visual disturbance. Respiratory: Positive for shortness of breath. Negative for apnea, chest tightness and wheezing. Cardiovascular: Positive for chest pain. Negative for leg swelling. Gastrointestinal: Positive for abdominal pain and diarrhea. Negative for abdominal distention, blood in stool and constipation. Genitourinary: Negative for decreased urine volume, difficulty urinating, dysuria and hematuria. Skin: Negative for color change. Neurological: Negative for dizziness, tremors and seizures. Psychiatric/Behavioral: Negative for agitation, decreased concentration, hallucinations, self-injury and suicidal ideas. The patient is not nervous/anxious. Hematological: Negative for adenopathy. Does not bruise/bleed easily. Endocrine: Positive for polyuria. Negative for cold intolerance, heat intolerance and polydipsia. Allergic/Immunologic: Negative for environmental allergies and food allergies. PAST MEDICAL HISTORY Past Medical History: Diagnosis Date Abdominal pain ; Epigastric abd pain. Pain is intermittent, daily, worse when he eats chips, spicy food. Mild nausea rarely. Normal Colonoscopy/EGD 2021 Patient reports intermittent diarrhea - associated with urgency, fecal incontinence on one occasion. At standard risk for fall Blood pressure elevated without history of HTN Denies CP, palpitations Reports intermittent shortness of breath at rest and on exertion. Never been on any medications for High blood pressure. Fracture of navicular bone of left foot H/O herpes genitalis Intermittently gets lesions. 2-3 flare ups once a year. Has had genital herpes for years. Hand fracture, right Nose fracture Obesity with body mass index (BMI) of 30.0 to 39.9 History reviewed. No pertinent surgical history. family history includes Cancer in his mother's sister and paternal grandfather. OBJECTIVE: Visit Vitals BP 148/78 (BP Location: Left arm, Patient Position: Sitting, BP Cuff Size: Large adult) Pulse 79 Temp 98.8 F (Temporal) Resp 18 Wt 230 lb 3.2 oz SpO2 97% BMI 37.16 kg/m Smoking Status Every Day BSA 2.2 m Physical Exam Vitals and nursing note reviewed. Constitutional: Appearance: Normal appearance. He is obese. He is not ill-appearing. HENT: Head: Normocephalic. Right Ear: Tympanic membrane, ear canal and external ear normal. Left Ear: Tympanic membrane, ear canal and external ear normal. Nose: Nose normal. No congestion or rhinorrhea. Mouth/Throat: Mouth: Mucous membranes are moist. Pharynx: Oropharynx is clear. No oropharyngeal exudate or posterior oropharyngeal erythema. Eyes: Extraocular Movements: Extraocular movements intact. Conjunctiva/sclera: Conjunctivae normal. Neck: Vascular: No carotid bruit. Cardiovascular: Rate and Rhythm: Normal rate and regular rhythm. Pulses: Normal pulses. Heart sounds: Murmur (radiates to left carotid) heard. Pulmonary: Effort: Pulmonary effort is normal. Breath sounds: Normal breath sounds. No wheezing or rhonchi. Abdominal: General: Bowel sounds are normal. There is no distension. Palpations: Abdomen is soft. Tenderness: There is no abdominal tenderness. There is no rebound. Musculoskeletal: Cervical back: Neck supple. Right lower leg: No edema. Left lower leg: No edema. Lymphadenopathy: Cervical: No cervical adenopathy. Skin: General: Skin is warm and dry. Capillary Refill: Capillary refill takes 2 to 3 seconds. Neurological: General: No focal deficit present. Mental Status: He is alert. Psychiatric: Mood and Affect: Mood normal. Behavior: Behavior normal. Thought Content: Thought content normal. Judgment: Judgment normal. ASSESSMENT AND PLAN: Follow up in about 4 weeks (around 07/14/2024) for Recheck. Problem List Items Addressed This Visit H/O herpes genitalis Relevant Medications valACYclovir (Valtrex) 500 MG tablet Primary hypertension (CMS/HCC) - Primary Please check blood pressure daily and record DASH diet Limit caffeine Take medication as directed Contact office if chest pain, pressure, dizziness, shortness of breath, swelling legs Recommend slow position changes Meds: amlodipine, not at goal increase dose to 10mg Relevant Medications amLODIPine (Norvasc) 10 MG tablet Other Relevant Orders Comprehensive metabolic panel Urinalysis with reflex microscopic (clean catch) Microalbumin / creatinine, urine ratio Irritable bowel syndrome with diarrhea Bentyl prn Relevant Medications pantoprazole (ProtoNix) 40 MG EC tablet Pre-diabetes Increase in urination, hx of pre diabetes Will check A1c Relevant Orders Hemoglobin A1c Tobacco dependence The patient has been advised of the risks of continued smoking: stroke, RI, all forms of cancer, lung disease, and . Options for quitting smoking include: cold turkey, hypnosis, acupuncture, nicotine replacement meds (gum, lozenges, and patches), Buproprion, and Varenicline. At this time pt is encouraged to evaluate their goals for wanting to quit smoking, and reach out to provider when ready to start this process Relevant Orders CBC and differential Urinalysis with reflex microscopic (clean catch) Mixed hyperlipidemia (CMS/HCC) On statin therapy Check labs yearly and prn dose changes Relevant Orders Comprehensive metabolic panel Lipid panel TSH Heart murmur No prior known hx Will order ECHO Relevant Orders Echocardiogram 2D complete Other Visit Diagnoses Hyperlipidemia, unspecified hyperlipidemia type (CMS/HCC) Relevant Medications atorvastatin (Lipitor) 20 MG tablet Associated Problem(s): Mixed hyperlipidemia (CMS/HCC) On statin therapy Check labs yearly and prn dose changes Associated Problem(s): Tobacco dependence The patient has been advised of the risks of continued smoking: stroke, RI, all forms of cancer, lung disease, and . Options for quitting smoking include: cold turkey, hypnosis, acupuncture, nicotine replacement meds (gum, lozenges, and patches), Buproprion, and Varenicline. At this time pt is encouraged to evaluate their goals for wanting to quit smoking, and reach out to provider when ready to start this process Associated Problem(s): Primary hypertension (CMS/HCC) Please check blood pressure daily and record DASH diet Limit caffeine Take medication as directed Contact office if chest pain, pressure, dizziness, shortness of breath, swelling legs Recommend slow position changes Meds: amlodipine, not at goal increase dose to 10mg documented in this encounter [facility] Healthcare Instructions 06-16-2024 Patient Instructions Note Date & Type Note Facility 06-16-2024 Instructions Grisel Ann NP - 06/16/2024 6:00 PM EDT Stop the amlodipine 5mg script, new dose is 10mg , take 1 pill daily We are going to check an Ultra sound of your heart, called an [facility] will call you about setting this up Check labs fasting 8 hours documented in this encounter [facility] Healthcare Evaluation note 05-10-2022 Note Date & Type Note Facility 07-24-2021 Evaluation note Encounter Date Diagnosis Assessment Notes July, Abdominal pain (ICD-10 - R10.9) July, Fecal urgency (ICD-10 - R15.2) [facility] Other Evaluation note Note Date & Type Note Facility Evaluation note Diagnosis URTI (acute upper respiratory infection)- Primary Acute upper respiratory infections of unspecified site Primary hypertension ([facility]/HCC) Unspecified essential hypertension Other hyperlipidemia Pre-diabetes Other abnormal glucose Tobacco abuse Tobacco use disorder Irritable bowel syndrome with diarrhea Irritable bowel syndrome Primary hypertension (CMS/HCC)- Primary Unspecified essential hypertension Tobacco dependence Tobacco use disorder Mixed hyperlipidemia (CMS/HCC) Mixed hyperlipidemia Heart murmur Undiagnosed cardiac murmurs Pre-diabetes Other abnormal glucose Hyperlipidemia, unspecified hyperlipidemia type (CMS/[facility]) Irritable bowel syndrome with diarrhea Irritable bowel syndrome H/O herpes genitalis documented in this encounter [facility] Summary Purpose Family History No Family History [...] section and content) DATE CREATED AUTHOR 11/03/2019 [facility] DATE CREATED AUTHOR AUTHOR'S ORGANIZ ATION 10/19/2020 [facility] DATE CREATED AUTHOR AUTHOR'S ORGANIZ ATION 08/23/2021 [facility] DATE CREATED AUTHOR AUTHOR'S ORGANIZ ATION 06/19/2024 [facility] EPIC REASON FOR VISIT (unrecogniz ed section and content) PATIENT REFERRED HERE BY DR. MORENO FOR ABDOMINAL PAIN. PT DOES TAKE MEDICATION BUT DOES NOT RECALL NAMES OR DOSAGES NOR DOES HE HAVE A LIST TO REVIEW Care Teams (unrecognized sec tion and content) [facility] Relationship Specialty Start Date End Date Shaikh Moreno MD [address] [place] [address] PCP - [facility] 03/17/23 Tony Eller MD [address] [place] [address] PCP [facility] 06/16/24 [facility] Relationship Specialty Start Date End Date Shaikh Moreno MD [address] [place] [address] PCP - [facility] 03/17/23 Tony Eller MD [address] [place] [address] PCP - [facility] 06/16/24 FOR RECORDS PERTAINING TO PATIENTS WHO ARE [...] BE BASED ON THE PRIMARY CLINICAL RECORDS. [employer] [email or web address] provides no warranty or guarantee of the accuracy or completeness of information in this document.
== END 2024-07-02 13:58 | disposition home or self-care (01) ==
LOC: CARD 13:58
PROVIDERS: PCP Nurse Practitioner; Visit Provider Nurse Practitioner
DX: R01.1 Cardiac murmur, unspecified (principal); I10 Essential (primary) hypertension; F17.200 Nicotine dependence, unspecified, uncomplicated; E78.2 Mixed hyperlipidemia; R73.03 Prediabetes
CPT/HCPCS: 36415; 80053; 80061; 81003; 82043; 82570; 83036; 84443; 85025; 93306

== ENCOUNTER 2024-07-02 14:29 | Outpatient (OUT) | payer BC, SELFPAY ==
--- OUTSIDE RECORDS SUMMARY | 2024-07-02 14:42 | XMS_ITS | CCD ---
Author Organization [facility] Care Team Providers Care Lighter Name Role Phone SHAIKH MORENO Primary Care Unavailable FAWWAD, LOPEZ Admitting Unavailable FAELMER, LOPEZ Attending Unavailable FAWWAD, LOPEZ Consulting Unavailable FAWWAD, LOPEZ Primary Care Unavailable FAWWAD, LOPEZ Admitting Unavailable Manolo Almanza Consulting Unavailable FAWKIMBERLEE, LOPEZ Attending Unavailable FAELMER, LOPEZ Consulting Unavailable Isacc Anderson Unavailable Shaikh Moreno MD Unavailable Tony Eller MD Primary Care Provider GRISEL ANN Attending Unavailable Medications Current Medications [...] extended release oral tablet (3 sources) Uncompetitive M-ikpovx-T-aspartat e Receptor Antagonist, Sigma-1 Agonist Start: 06-08-2024 [...] Reference Range Facility Gerald 08-17-2021 L Specimen: [id number] Received: 08/17/21 Status: ALLISON Mccray Num: [id number] Spec Type: Surgical Subm Dr: Isacc Anderson MD Tissues: A Duodenum - Biopsy (DUODENAL BX) B Colon Biopsy (SURVEILLANCE COLON BX) Procedures: HE Stain/4, Gross/Micro L4/2 Patient Age/Sex Location Account Attending Physician Naif Price/Edgardo [id number] Isacc Anderson MD SPEC NUM: [id number] RECD: 08/17/21 STATUS: ALLISON MCCRAY NUM: [id number] ANKIT: 08/17/[address] [facility] DR: Isacc Anderson MD ENTERED: 08/17/21 [facility] DR: RENETTA TYPE: Surgical DEPT: S ORDERED: [...] Fixative: 10% Neutral Buffered Formalin (SM/YJ) Specimen: [id number] Received: 08/17/21 Status: ALLISON Mccray Num: [id number] Spec Type: Surgical Subm Dr: Isacc Anderson MD Tissues: A Duodenum - Biopsy (DUODENAL BX) B Colon Biopsy (SURVEILLANCE COLON BX) Procedures: HE Stain/4, Gross/Micro L4/2 Patient: Naif Price [id number] (Continued) Specimen: [id number] Received: 08/17/21 (Continued) Signed (signature on file) Bari Ann MD 08/20/21 1413 Specimen: [id number] Received: 08/17/21 Status: EKATERINAT Jaleesaq Num: [id number] Spec Type: Surgical Subm Dr: Isacc Anderson MD Tissues: A Duodenum - Biopsy (DUODENAL BX) B Colon Biopsy (SURVEILLANCE COLON BX) Procedures: HE Stain/4, Gross/Micro L4/2 Patient: Naif Price [id number] (Continued) Specimen: [id number] Received: 08/17/21 (Continued) Microscopic Description A. Two H E slides are reviewed. Microscopic examination is performed. B. Two H E slides are reviewed. Microscopic examination is performed. This case is interpreted at [facility] [place], [place]. CPT Codes A. [address] B. 42614 Specimen: [id number] Received: 08/17/21 Status: ALLISON Mccray Num: [id number] Spec Type: Surgical Subm Dr: Isacc Anderson MD Tissues: A Duodenum - Biopsy (DUODENAL BX) B Colon Biopsy (SURVEILLANCE COLON BX) Procedures: HE Stain/4, Gross/Micro L4/2 Patient: Naif Price [id number] (Continued) Signed (signature on file) Bari Ann MD 08/20/21 1413 Normal [facility] Bowel Disorders Cascadeon Antigliadin IgG 3 Normal 0-19 [facility] Comment on above: Order Comment: Reaso n for Exam Abdominal pain;Fecal urgency Result Comment: Nega tive 0 - 19 Weak Positive 20 - 30 Moderate to Strong Positive >30 Performed By: #### C MP, CBC, THYROID SC #### [facility] [address] [place] [address] [place] #### BOWEL CASC #### [facility] , Atypical pANCA Negative Normal Negative [facility] Comment on above: Order Comment: Reaso n for Exam Abdominal pain;Fecal urgency Performed By: #### C MP, CBC, THYROID SC #### [facility] [address] [place] [address] [place] #### BOWEL CASC #### [facility] , Bowel Disorders Heard Negative Normal Negative [facility] Comment on above: Order Comment: Reaso n for Exam Abdominal pain;Fecal urgency Performed By: #### C MP, CBC, THYROID SC #### [place] [address] [place] #### BOWEL CASC #### [facility] , Note Heard continues Normal . [facility] Comment on above: Order Comment: Reaso n for Exam Abdominal pain;Fecal urgency Performed By: #### C MP, CBC, THYROID SC #### [place] [address] [place] #### BOWEL CASC #### [facility] , Note Normal . [facility] Comment on above: Order Comment: Reaso n for Exam Abdominal pain;Fecal urgency Result Comment: Sugg estive of irritable bowel syndrome (IBS). Careful evaluation of the patient's history, physical examination, and application of Alonso III diagnostic criteria may help to rule in or rule out the diagnosis of IBS. Subsequent testing for Fecal Calprotectin (793267) may be recommended. If IBD is strongly suspected, subsequent testing with the Crohn's Disease Prognostic Profile (716857) that includes anti-glycan antibodies AMCA, ALCA, ACCA, and Nawaf may aid in differential diagnosis. Performed at: [facility] [id number] Grape Picker: Gary Villegas MD, Phone: [phone] PERFORMED BY: [place] [address] PATHOLOGIST RATING SPECIALIST LASHELL LEIGH M.D. Performed By: #### C MP, CBC, THYROID SC #### [place] [address] [place] #### BOWEL CASC #### [facility] , Saccharomyces cerevisiae, IgG < 20.0 Normal 0.0-24.9 [facility] Comment on above: Order Comment: Reaso n for Exam Abdominal pain;Fecal urgency Result Comment: Nega tive <20.0 Equivocal 20.1 - 24.9 Positive >or= 25.0 Performed By: #### C MP, CBC, THYROID SC #### [place] [address] [place] #### BOWEL CASC #### [facility] , COVID-19 FRon 08-14-2021 SARS-CoV-2 (COVID-19) RNA GREGORY+probe Ql (Unsp spec) Negative Normal Negative [facility] Comment on above: Order Comment: Healt hcare Worker?: N Result Comment: Testing for SARS-CoV-2 by RT-PCR This test was developed and its performance characteristics determined by [facility] [employer] [facility] and validated at the [facility]. This test has not been FDA [...] is terminated or revoked sooner. PERFORMED BY: [place] [address] PATHOLOGIST RATING SPECIALIST LASHELL LEIGH M.D. Performed By: #### C OVID 19 [facility] #### [address] Complete Blood Count Auto Di ffon 08-14-2021 Basophils (Bld) [#/Vol] 0.0 10*3/uL Normal 0.0-0.2 [facility] Comment on above: Order Comment: Reaso n for Exam Abdominal pain;Fecal urgency Result Comment: PERF ORMED BY: [place] [address] PATHOLOGIST RATING SPECIALIST LASHELL LEIGH M.D. Performed By: #### C MP, CBC, THYROID SC #### [facility] [address] [place] [address] [place] #### BOWEL CASC #### [facility] , Basophils/100 WBC (Bld) 0.5 % Normal . [facility] Comment on above: Order Comment: Reaso n for Exam Abdominal pain;Fecal urgency Performed By: #### C MP, CBC, THYROID SC #### [address] #### BOWEL CASC #### [facility] , Eosinophils (Bld) [#/Vol] 0.1 10*3/uL Normal 0.0-0.45 [facility] Comment on above: Order Comment: Reaso n for Exam Abdominal pain;Fecal urgency Performed By: #### C MP, CBC, THYROID SC #### [address] #### BOWEL CASC #### [facility] , Eosinophils/100 WBC (Bld) 1.3 % Normal . [facility] Comment on above: Order Comment: Reaso n for Exam Abdominal pain;Fecal urgency Performed By: #### C MP, CBC, THYROID SC #### [address] #### BOWEL CASC #### [facility] , Erythrocyte distribution width (RBC) [Ratio] 13.5 % Normal 12.0-14.8 [facility] Comment on above: Order Comment: Reaso n for Exam Abdominal pain;Fecal urgency Performed By: #### C MP, CBC, THYROID SC #### [place] [address] [place] #### BOWEL CASC #### [facility] , Hematocrit (Bld) [Volume fraction] 47.1 % Normal 38.8-50.0 [facility] Comment on above: Order Comment: Reaso n for Exam Abdominal pain;Fecal urgency Performed By: #### C MP, CBC, THYROID SC #### [place] [address] [place] #### BOWEL CASC #### [facility] , Hemoglobin (Bld) [Mass/Vol] 15.7 g/dL Normal 13.0-17.0 [facility] Comment on above: Order Comment: Reaso n for Exam Abdominal pain;Fecal urgency Performed By: #### C MP, CBC, THYROID SC #### [address] #### BOWEL CASC #### [facility] , Lymphocytes (Bld) [#/Vol] 1.5 10*3/uL Normal 1.00-4.8 [facility] Comment on above: Order Comment: Reaso n for Exam Abdominal pain;Fecal urgency Performed By: #### C MP, CBC, THYROID SC #### [address] #### BOWEL CASC #### [facility] , Lymphocytes/100 WBC (Bld) 21.2 % Normal . [facility] Comment on above: Order Comment: Reaso n for Exam Abdominal pain;Fecal urgency Performed By: #### C MP, CBC, THYROID SC #### [address] #### BOWEL CASC #### [facility] , MCH (RBC) [Entitic mass] 28.1 pg Normal 27.5-35.2 [facility] Comment on above: Order Comment: Reaso n for Exam Abdominal pain;Fecal urgency Performed By: #### C MP, CBC, THYROID SC #### [place] [address] [place] #### BOWEL CASC #### [facility] , MCV (RBC) [Entitic vol] 84.5 fL Normal 83.5-101 [facility] Comment on above: Order Comment: Reaso n for Exam Abdominal pain;Fecal urgency Performed By: #### C MP, CBC, THYROID SC #### [place] [address] [place] #### BOWEL CASC #### [facility] , Mean Corpuscular HGB Conc 33.3 g/dL Normal 32.5-35.6 [facility] Comment on above: Order Comment: Reaso n for Exam Abdominal pain;Fecal urgency Performed By: #### C MP, CBC, THYROID SC #### [place] [address] [place] #### BOWEL CASC #### [facility] , Monocytes (Bld) [#/Vol] 0.7 10*3/uL Normal 0.0-0.8 [facility] Comment on above: Order Comment: Reaso n for Exam Abdominal pain;Fecal urgency Performed By: #### C MP, CBC, THYROID SC #### [address] #### BOWEL CASC #### [facility] , Monocytes/100 WBC (Bld) 10.5 % Normal . [facility] Comment on above: Order Comment: Reaso n for Exam Abdominal pain;Fecal urgency Performed By: #### C MP, CBC, THYROID SC #### [place] [address] [place] #### BOWEL CASC #### [facility] , Neutrophils (Bld) [#/Vol] 4.6 10*3/uL Normal 1.8-7.7 [facility] Comment on above: Order Comment: Reaso n for Exam Abdominal pain;Fecal urgency Performed By: #### C MP, CBC, THYROID SC #### [place] [address] [place] #### BOWEL CASC #### [facility] , Neutrophils/100 WBC (Bld) 66.5 % Normal . [facility] Comment on above: Order Comment: Reaso n for Exam Abdominal pain;Fecal urgency Performed By: #### C MP, CBC, THYROID SC #### [place] [address] [place] #### BOWEL CASC #### [facility] , Nucleated RBC/100 WBC (Bld) [Ratio] 0.1 % Normal 0-0.5 [facility] Comment on above: Order Comment: Reaso n for Exam Abdominal pain;Fecal urgency Performed By: #### C MP, CBC, THYROID SC #### [facility] [address] [place] [address] #### BOWEL CASC #### [facility] , Platelet mean volume (Bld) [Entitic vol] 8.4 fL Normal 6.6-10.1 [facility] Comment on above: Order Comment: Reaso n for Exam Abdominal pain;Fecal urgency Performed By: #### C MP, CBC, THYROID SC #### [address] #### BOWEL CASC #### [facility] , Platelets (Bld) [#/Vol] 255 10*3/uL Normal 150-450 [facility] Comment on above: Order Comment: Reaso n for Exam Abdominal pain;Fecal urgency Performed By: #### C MP, CBC, THYROID SC #### [address] #### BOWEL CASC #### [facility] , RBC (Bld) [#/Vol] 5.58 10*6/uL Normal 3.90-5.60 [facility] Comment on above: Order Comment: Reaso n for Exam Abdominal pain;Fecal urgency Performed By: #### C MP, CBC, THYROID SC #### [place] [address] [place] #### BOWEL CASC #### [facility] , WBC (Bld) [#/Vol] 6.9 10*3/uL Normal 4.5-11.0 [facility] Comment on above: Order Comment: Reaso n for Exam Abdominal pain;Fecal urgency Performed By: #### C MP, CBC, THYROID SC #### [place] [address] [place] #### BOWEL CASC #### [facility] , Comprehensive Metabolic Pane gerald 08-14-2021 Albumin [Mass/Vol] 3.9 g/dL Normal 3.2-5.5 [facility] Comment on above: Order Comment: Reaso n for Exam Abdominal pain;Fecal urgency Performed By: #### C MP, CBC, THYROID SC #### [facility] [address] [place] [address] [place] #### BOWEL CASC #### [facility] , Albumin/Globulin [Mass ratio] 1.3 {ratio} Normal [facility] Comment on above: Order Comment: Reaso n for Exam Abdominal pain;Fecal urgency Performed By: #### C MP, CBC, THYROID SC #### [address] #### BOWEL CASC #### [facility] , ALP [Catalytic activity/Vol] 91 U/L Normal 32-92 [facility] Comment on above: Order Comment: Reaso n for Exam Abdominal pain;Fecal urgency Performed By: #### C MP, CBC, THYROID SC #### [facility] [address] [place] [address] [place] #### BOWEL CASC #### [facility] , ALT [Catalytic activity/Vol] 49 U/L Normal 10-60 [facility] Comment on above: Order Comment: Reaso n for Exam Abdominal pain;Fecal urgency Performed By: #### C MP, CBC, THYROID SC #### [facility] [address] [place] [address] [place] #### BOWEL CASC #### [facility] , AST [Catalytic activity/Vol] 34 U/L Normal 10-42 [facility] Comment on above: Order Comment: Reaso n for Exam Abdominal pain;Fecal urgency Performed By: #### C MP, CBC, THYROID SC #### [facility] [address] [place] [address] [place] #### BOWEL CASC #### [facility] , Bilirubin [Mass/Vol] 0.5 mg/dL Normal 0.3-1.2 [place] Comment on above: Order Comment: Reaso n for Exam Abdominal pain;Fecal urgency Performed By: #### C MP, CBC, THYROID SC #### [facility] [address] [place] [address] [place] #### BOWEL CASC #### [facility] , Calcium [Mass/Vol] 8.9 mg/dL Normal 8.2-10.2 [facility] Comment on above: Order Comment: Reaso n for Exam Abdominal pain;Fecal urgency Performed By: #### C MP, CBC, THYROID SC #### [address] #### BOWEL CASC #### [facility] , Chloride [Moles/Vol] 104 mmol/L Normal 95-114 [place] Comment on above: Order Comment: Reaso n for Exam Abdominal pain;Fecal urgency Performed By: #### C MP, CBC, THYROID SC #### [address] #### BOWEL CASC #### [facility] , CO2 [Moles/Vol] 25.0 mmol/L Normal 22.0-30.0 [facility] Comment on above: Order Comment: Reaso n for Exam Abdominal pain;Fecal urgency Performed By: #### C MP, CBC, THYROID SC #### [address] #### BOWEL CASC #### [facility] , Creatinine [Mass/Vol] 0.98 mg/dL Normal 0.64-1.27 [facility] Comment on above: Order Comment: Reaso n for Exam Abdominal pain;Fecal urgency Performed By: #### C MP, CBC, THYROID SC #### [place] [address] [place] #### BOWEL CASC #### [facility] , Estimated GFR ( Kari > 60 Normal [facility] Comment on above: Order Comment: Reaso n for Exam Abdominal pain;Fecal urgency Result Comment: GFR estimated reference range: According to KDOQI guidelines, <60 ml/min/1.73m2 is sufficient to diagnose a patient with chronic kidney disease. Performed By: #### C MP, CBC, THYROID SC #### [place] [address] [place] #### BOWEL CASC #### [facility] , Estimated GFR (Non- Am > 60 [facility] Comment on above: Order Comment: Reaso n for Exam Abdominal pain;Fecal urgency Performed By: #### C MP, CBC, THYROID SC #### [place] [address] [place] #### BOWEL CASC #### [facility] , Globulin (S) [Mass/Vol] 2.9 g/dL Normal [facility] Comment on above: Order Comment: Reaso n for Exam Abdominal pain;Fecal urgency Performed By: #### C MP, CBC, THYROID SC #### [place] [address] [place] #### BOWEL CASC #### [facility] , Glucose [Mass/Vol] 100 mg/dL Normal 70-100 [facility] Comment on above: Order Comment: Reaso n for Exam Abdominal pain;Fecal urgency Result Comment: [facility] Glucose Reference Range is dependent on time and content of last meal. Glucose of more than 200 mg/dL in a nonstressed, ambulatory subject supports the diagnosis of Diabetes Mellitus. ADA recommended reference range Performed By: #### C MP, CBC, THYROID SC #### [place] [address] [place] #### BOWEL CASC #### [facility] , Potassium [Moles/Vol] 4.0 mmol/L Normal 3.5-5.1 [facility] Comment on above: Order Comment: Reaso n for Exam Abdominal pain;Fecal urgency Performed By: #### C MP, CBC, THYROID SC #### [place] [address] [place] #### BOWEL CASC #### [facility] , Protein [Mass/Vol] 6.8 g/dL Normal 6.1-7.9 [facility] Comment on above: Order Comment: Reaso n for Exam Abdominal pain;Fecal urgency Performed By: #### C MP, CBC, THYROID SC #### [facility] [address] [place] [address] [place] #### BOWEL CASC #### [facility] , Sodium [Moles/Vol] 137 mmol/L Normal 136-146 [facility] Comment on above: Order Comment: Reaso n for Exam Abdominal pain;Fecal urgency Performed By: #### C MP, CBC, THYROID SC #### [address] #### BOWEL CASC #### [facility] , Urea nitrogen [Mass/Vol] 14 mg/dL Normal 9-23 [facility] Comment on above: Order Comment: Reaso n for Exam Abdominal pain;Fecal urgency Performed By: #### C MP, CBC, THYROID SC #### [place] [address] [place] #### BOWEL CASC #### [facility] , THYROID SCREENon 08-14-2021 Free T4 [Mass/Vol] 1.00 ng/dL Normal 0.61-1.12 [facility] Comment on above: Order Comment: Reaso n for Exam Abdominal pain;Fecal urgency Performed By: #### C MP, CBC, THYROID SC #### [facility] [address] [place] [address] [place] #### BOWEL CASC #### [facility] , TSH Qn 1.53 m[IU]/L Normal 0.45-5.33 [facility] Comment on above: Order Comment: Reaso n for Exam Abdominal pain;Fecal urgency Result Comment: PERF ORMED BY: [place] [address] PATHOLOGIST RATING SPECIALIST LASHELL LEIGH M.D. Performed By: #### C MP, CBC, THYROID SC #### [place] [address] [place] #### BOWEL CASC #### [facility] RT UPPERon US [...] MANOLO ALMANZA Date: 2020-10-08 18:19 Normal [facility] CBC AUTO DIFFon 08-02-2020 BASO # 0.0 103/ul Normal 0.0-0.1 [facility] Comment on above: Performed By: #### C BC #### [facility] [address] [place] [address] Anh Ritika Basophils/100 WBC (Bld) 0.3 % Normal 0.2-2.0 [facility] Comment on above: Performed By: #### C BC #### [facility] [address] [place] [address] Anh Ritika EO # 0.1 103/ul Normal 0.0-0.7 [facility] Comment on above: Performed By: #### C BC #### [facility] [address] [place] [address] Anh Ritika Eosinophils/100 WBC (Bld) 1.3 % Normal 0.9-7.0 [facility] Comment on above: Performed By: #### C BC #### [facility] [address] [place], [place] [id number] Anh Ritika Erythrocyte distribution width (RBC) [Ratio] 13.2 % Normal 11.0-15.0 [facility] Comment on above: Performed By: #### C BC #### [facility] [address] [place], [place] [id number] Anh Ritika Hematocrit (Bld) [Volume fraction] 48.8 % Normal 42.0-54.0 [facility] Comment on above: Performed By: #### C BC #### [facility] [address] [place], [place] [id number] Anh Yost Hemoglobin (Bld) [Mass/Vol] 16.0 g/dL Normal 14.0-18.0 [facility] Comment on above: Performed By: #### C BC #### [facility] [address] [place], [place] [id number] Anhradha Yost IG # 0.11 10e3/ul Critically high 0.00-0.03 [facility] [place] [facility] Comment on above: Performed By: #### C BC #### [facility] [address] [place] [address] Anhradha Yost IG % 1.3 % Critically high 0.0-0.5 [facility] Comment on above: Performed By: #### C BC #### [facility] [address] [place] [address] Anh Yost LYMPH # 1.8 103/ul Normal 1.2-3.8 [facility] Comment on above: Performed By: #### C BC #### [facility] [address] [place] [address] Anh Yost Lymphocytes/100 WBC (Bld) 20.4 % Critically low 20.5-60.0 [facility] Comment on above: Performed By: #### C BC #### [facility] [address] [place] [address] Anh Yost MANUAL DIFF REQ NO Normal [facility] Comment on above: Performed By: #### C BC #### [facility] [address] [place], [place] [id number] Anh Yost MCH (RBC) [Entitic mass] 28.4 pg Normal 25.9-34.0 [facility] Comment on above: Performed By: #### C BC #### [facility] [address] [place] [address] Anhradha Yost MCHC (RBC) [Mass/Vol] 32.8 g/dL Normal 29.9-35.2 [facility] Comment on above: Performed By: #### C BC #### [facility] [address] [place], [place] [address] Anh Yost MCV (RBC) [Entitic vol] 86.5 fL Normal 80.0-94.0 [facility] Comment on above: Performed By: #### C BC #### [facility] [address] [place] [id number] Anh Yost MONO # 0.6 103/ul Normal 0.3-0.8 [facility] Comment on above: Performed By: #### C BC #### [facility] [address] [place] [id number] Anh Yost Monocytes/100 WBC (Bld) 7.0 % Normal 1.7-12.0 [facility] Comment on above: Performed By: #### C BC #### [facility] [address] [place] [id number] Anh Bans[place] NEUT # 6.1 103/ul Normal 1.4-6.5 [facility] Comment on above: Performed By: #### C BC #### [facility] [address] [place] [id number] Anh Yost Neutrophils/100 WBC (Bld) 69.7 % Normal 43.0-75.0 [facility] Comment on above: Performed By: #### C BC #### [facility] [address] [place] [id number] Anh Yost Platelet mean volume (Bld) [Entitic vol] 11.0 fL Normal 9.5-13.5 [facility] Comment on above: Performed By: #### C BC #### [facility] [address] [place] [id number] Anh Ritika PLT 270 103/ul Normal 150-450 [facility] Comment on above: Performed By: #### C BC #### [facility] [address] [id number] Anh Ritika RBC 5.64 106/ul Normal 4.70-6.10 [facility] Comment on above: Performed By: #### C BC #### [facility] [address] [place], [place] [address] Anh Ritika WBC 8.8 103/ul Normal 4.0-11.0 [facility] Comment on above: Performed By: #### C BC #### [facility] [address] [place], [place] [address] Anh Ritika GLYCOHEMOGLOBIN A1Con 2020 ADA RECOMMENDATION ADA THERAPEUTIC TARGET 6.0 - 7.0 ACTION SUGGESTED > 7.0 Normal [facility] Comment on above: Performed By: #### A 1C #### [facility] [address] [place], [place] [address] Anh Ritika Glucose [Mass/Vol] 114 mg/dL Normal [facility] Comment on above: Performed By: #### A 1C #### [facility] [address] [place], [place] [phone] Anh Ritika HbA1c (Bld) [Mass fraction] 5.6 % Normal <=6.0 [facility] Comment on above: Performed By: #### A 1C #### [facility] [address] [place] [address] Anh Ritika LIPID PROFILEon 08-02-2020 CHOL-HDL RATIO NORM SEE BELOW Normal [facility] Comment on above: Result Comment: 3.3 - 4.4 LOW RISK 4.4 - 7.1 AVERAGE RISK 7.1 - 11.0 MODERATE RISK >11.0 HIGH RISK Performed By: #### L IPID, CMP #### [facility] [address] [place], [place] [id number] Anh Ritika Cholesterol [Mass/Vol] 193 mg/dL Normal <=200 [facility] Comment on above: Performed By: #### L IPID, CMP #### [facility] [address] [id number] Anh Ritika Cholesterol in HDL [Mass/Vol] 30 mg/dL Normal [facility] Comment on above: Performed By: #### L IPID, CMP #### [facility] [address] [place], [place] [address] Anh Ritika Cholesterol in LDL [Mass/Vol] 118.2 mg/dL Normal [facility] Comment on above: Performed By: #### L IPID, CMP #### [facility] [address] [place], [place] [address] Anh Ritika Cholesterol.total/Cho lesterol in HDL [Mass ratio] 6.4 {ratio} Normal [facility] Comment on above: Performed By: #### L IPID, CMP #### [facility] [address] [place], [place] [address] Anh Ritika HDL NORMAL > or = 60 mg/dl - LOW CARDIOVASCULAR RISK <40 mg/dl - HIGH CARDIOVASCULAR RISK Normal [facility] Comment on above: Performed By: #### L IPID, CMP #### [facility] [address] [id number] Anh Ritika LDL CALC NORMAL SEE BELOW Normal [facility] Comment on above: Result Comment: <100 mg/dl OPTIMAL 100 - 129 mg/dl NEAR OR ABOVE OPTIMAL 130 - 159 mg/dl BORDERLINE HIGH 160 - 189 mg/dl HIGH >190 mg/dl VERY HIGH Performed By: #### L IPID, CMP #### [facility] [address] [address] Anh Ritika Triglyceride [Mass/Vol] 224 mg/dL Critically high <=150 [facility] Comment on above: Performed By: #### L IPID, CMP #### [facility] [address] [id number] Anh Ritika VLDL CALC 44.8 mg/dL Normal [facility] Comment on above: Performed By: #### L IPID, CMP #### [facility] [address] [id number] Anhradha Bansalen PROF 14(COMP METB)on 021 Albumin [Mass/Vol] 4.1 g/dL Normal 3.5-5.0 [facility] Comment on above: Performed By: #### L IPID, CMP #### [facility] [address] [id number] Anh Ritika Albumin/Globulin [Mass ratio] 1.1 {ratio} Normal [facility] Comment on above: Performed By: #### L IPID, CMP #### [facility] [address] [id number] Anh Ritika ALP [Catalytic activity/Vol] 105 U/L Normal 38-126 [facility] Comment on above: Performed By: #### L IPID, CMP #### [facility] [address] [id number] Anh Ritika ALT [Catalytic activity/Vol] 77 U/L Critically high 21-72 [facility] Comment on above: Performed By: #### L IPID, CMP #### [facility] [address] [address] Anh Ritika Anion gap [Moles/Vol] 12.4 mmol/L Normal [facility] Comment on above: Performed By: #### L IPID, CMP #### [facility] [address] [address] Anh Ritika AST [Catalytic activity/Vol] 32 U/L Normal 17-59 [facility] Comment on above: Performed By: #### L IPID, CMP #### [facility] [address] [address] Anh Ritika Bilirubin [Mass/Vol] 0.3 mg/dL Normal 0.2-1.3 [facility] Comment on above: Performed By: #### L IPID, CMP #### [facility] [address] [address] Anh Ritika Calcium [Mass/Vol] 9.3 mg/dL Normal 8.4-10.2 [facility] Comment on above: Performed By: #### L IPID, CMP #### [facility] [address] [address] Anh Ritika Chloride [Moles/Vol] 103 mmol/L Normal 98-107 [facility] Comment on above: Performed By: #### L IPID, CMP #### [facility] [address] [id number] Anh Ritika CO2 [Moles/Vol] 29.8 mmol/L Normal 22.0-30.0 The [facility] Comment on above: Performed By: #### L IPID, CMP #### [facility] [address] [address] Anh Ritika Creatinine [Mass/Vol] 1.02 mg/dL Normal 0.66-1.25 [facility] Comment on above: Performed By: #### L IPID, CMP #### [facility] [address] [id number] Anh Ritika EGFR-AF TURKS AND CAICOS ISLANDER >60 Normal >=60 [facility] Comment on above: Performed By: #### L IPID, CMP #### [facility] [address] [place] [address] Anh Ritika EGFR-NON AF TURKS AND CAICOS ISLANDER >60 Normal >=60 [facility] Comment on above: Performed By: #### L IPID, CMP #### [facility] [address] [place] [address] Anh Ritika Globulin (S) [Mass/Vol] 3.8 g/dL Normal [facility] Comment on above: Performed By: #### L IPID, CMP #### [facility] [address] [place] [address] Anh Ritika Glucose [Mass/Vol] 97 mg/dL Normal 74-106 [facility] Comment on above: Performed By: #### L IPID, CMP #### [facility] [address] [place] [address] Anh Ritika Potassium [Moles/Vol] 4.2 mmol/L Normal 3.4-5.0 [facility] Comment on above: Performed By: #### L IPID, CMP #### [facility] [address] [place] [address] Anh Ritika Protein [Mass/Vol] 7.9 g/dL Normal 6.1-8.2 [facility] Comment on above: Performed By: #### L IPID, CMP #### [facility] [address] [place] [address] Anh Ritika Sodium [Moles/Vol] 141 mmol/L Normal 137-145 [facility] Comment on above: Performed By: #### L IPID, CMP #### [facility] [address] [place] [address] Anh Yost Urea nitrogen [Mass/Vol] 13.0 mg/dL Normal 9.0-20.0 [facility] Comment on above: Performed By: #### L IPID, CMP #### [facility] [address] [address] Anh Yost Urea nitrogen/Creatinine [Mass ratio] 12.7 mg/mg Normal [facility] Comment on above: Performed By: #### L IPID, CMP #### [facility] [address] [address] Anh Yost Coding Summary.on 11-02-2019 Coding Summary. CODING DATE: 11/02/2019 FINAL [facility] STATUS: Home (Routine DC) PAYOR: Tri ADMIT [...] CphT Date Saved: 11/02/2019 04:52 pm Normal [facility] Provider Letteron 10-15-2019 Provider Letter October 15, 2019 [address] [place] [address] [employer]ICE 1990 To Whom It May Concern, Please excuse above patient from work. May Return to Work On: 10/18/2019 Comments: COVID-19 TEST WAS NEGATIVE. Pt may return to work if symptoms are improving, no fever for 3 days without the use of Tylenol/Ibuprofen Sincerely, Formerly [facility], [facility] [place] [address], [place] [address] Normal [facility] SARS-CoV-2, NAAon 10-15-2019 SARS CORONAVIRUS 2 RNA:PRTHR:PT:RESPIRAT ORY:ORD:PROBE.AMP.TAR Not Detected Not Detected [facility] Comment on above: Result Comment: This test was developed and its performance characteristics determined by [employer]. This test has not been FDA cleared [...] detected) result in this assay. 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 Avoid touching face, eyes, nose, mouth. Be [...] # 12 tab(s), Refills(s) 0, Pharmacy: [id number], 168, cm, 10/11/19 10:36:00 EDT, Height/Length Measured, 109, kg, 10/11/19 10:36:00 EDT, Weight Measured XR Wrist 3+ Views Right Follow-up No qualifying data available Patient Education Viral Infections, Ufro-Cv-Crav Problem List/Past Medical History Ongoing Obesity Historical [...] only communication with the patient located at [place] [phone], with no one else. If it is determined that the patient should be evaluated in person, the patient will be directed to the appropriate clinic or venue. The patient or their guardian verbally consented to this visit. Phone time was 10 minutes discussing health issues with counseling and coordination of care. Normal [facility] Comment on above: Result Comment: Elec tronically [...] Document Reviewed: 07/09/2011 ExitCare? Patient Information ?2013 [facility] [employer]. [facility] Vital Signs Date Time Vital Sign Value Performing Clinician Facility 06-16-2024 18:09-0400 Body mass index (BMI) [Ratio] 37.16 kg/m2 Grisel Ann BRIQUETTER OPERATOR Work Phone: [facility] 06-16-2024 18:09-0400 Body temperature 98.8 [degF] Grisel Ann BRIQUETTER OPERATOR Work Phone: [facility] 06-16-2024 18:09-0400 Body weight 104.42 kg Grisel Ann BRIQUETTER OPERATOR Work Phone: [facility] 06-16-2024 18:09-0400 Diastolic blood pressure 78 mm[Hg] Grisel Ann BRIQUETTER OPERATOR Work Phone: [facility] 06-16-2024 18:09-0400 Heart rate 79 /min Grisel Ann BRIQUETTER OPERATOR Work Phone: [facility] 06-16-2024 18:09-0400 Respiratory rate 18 /min Grisel Ann BRIQUETTER OPERATOR Work Phone: [facility] 06-16-2024 18:09-0400 SaO2% (BldA) [Mass fraction] 97 % Grisel Ann BRIQUETTER OPERATOR Work Phone: [facility] 06-16-2024 18:09-0400 Systolic blood pressure 148 mm[Hg] Grisel Ann BRIQUETTER OPERATOR Work Phone: [facility] 07-24-2021 16:30-0400 Body height 167.64 cm Isacc Justin Other [facility] Other 07-24-2021 16:30-0400 Body mass index (BMI) [Ratio] 37.6 kg/m2 Webrazziormack Other [facility] Other 07-24-2021 16:30-0400 Body weight 105.69 kg Isacc Chavarriaack Other [facility] Other 07-24-2021 16:30-0400 Diastolic blood pressure 94 mm[Hg] Isacc Chavarriaack Other [facility] Other 07-24-2021 16:30-0400 Systolic blood pressure 143 mm[Hg] Isacc Anderson Other [facility] Other Encounters Encounter Date Encounter Type Care Provider Facility Start: 06-16-2024 End: 06-16-2024 Office outpatient visit 25 minutes Grisel Ann BRIQUETTER OPERATOR Work Phone: [facility] Comment on above: Primary hypertension (CMS/HCC) (Primary Dx); Tobacco dependence; Mixed hyperlipidemia (CMS/HCC); Heart murmur; Pre-diabetes; Hyperlipidemia, unspecified hyperlipidemia type (CMS/HCC); Irritable bowel syndrome with diarrhea; H/O herpes genitalis Start: 06-16-2024 End: 06-16-2024 ambulatory GRISEL ANN Not Available Start: 06-16-2024 End: 06-16-2024 Bamboo flowsheet Grisel Ann BRIQUETTER OPERATOR Work Phone: [facility] Start: 06-16-2024 End: 06-16-2024 Bamboo flowsheet Grisel Ann NP Work Phone: [facility] Start: 07-24-2021 End: 07-24-2021 ambulatory Isacc Anderson Other [facility] Other Start: 07-24-2021 Office outpatient ne w 45 minutes Isacc Anderson [facility] Start: 10-07-2020 End: 10-08-2020 ambulatory [facility] Facility:H1 Start: 08-02-2020 End: 08-03-2020 ambulatory [facility] Facility: Plan of Treatment Date Care Activity Detail Author Start: 11-15-2024 Influenza vaccination Influenz a Vaccine (Season Ended) [facility] Start: 07-15-2024 End: 07-15-2024 Patient encounter procedure 07/15/2024 3:20 PM EDT Office Visit [facility] [address] [place] [address] Grisel Ann, OWEN [address] [place] [phone] [facility] Start: 06-16-2024 End: 06-16-2024 Patient encounter procedure 06/16/2024 6:00 PM EDT Office Visit [facility] [address] [place] [address] Grisel Ann, OWEN [address] [place] [phone] Primary hypertension (CMS/HCC) (Primary Dx); Tobacco dependence; Mixed hyperlipidemia (CMS/HCC) [facility] Comment on above: Primary hypertension (CMS/HCC) (Primary Dx); Tobacco dependence; Mixed hyperlipidemia (CMS/HCC) Start: 06-16-2024 End: 06-16-2025 CBC W Auto Differential panel - Blood CBC and differential Lab Routine Tobacco dependence Expected: 06/16/2024 (Approximate), Expires: 06/16/2025 [facility] Work Phone: Comment on above: Expected: 06/16/2024 (Approximate), Expires: 06/16/2025 Start: 06-16-2024 End: 06-16-2025 Comprehensive metabolic 2000 panel - Serum or Plasma Comprehensive metabolic panel Lab Routine Primary hypertension (CMS/HCC) Mixed hyperlipidemia (CMS/HCC) Expected: 06/16/2024 (Approximate), Expires: 06/16/2025 [facility] Comment on above: Expected: 06/16/2024 (Approximate), Expires: 06/16/2025 Start: 06-16-2024 End: 06-16-2026 Echocardiogram 2D complete Echocardiogram 2D complete Echocardiography Routine Heart murmur Expected: 06/16/2024 (Approximate), Expires: 06/16/2026 [facility] Comment on above: Expected: 06/16/2024 (Approximate), Expires: 06/16/2026 Start: 06-16-2024 End: 06-16-2025 Hemoglobin A1c/Hemoglobin.total in Blood Hemoglobin A1c Lab Routine Pre-diabetes Expected: 06/16/2024 (Approximate), Expires: 06/16/2025 [facility] Comment on above: Expected: 06/16/2024 (Approximate), Expires: 06/16/2025 Start: 06-16-2024 End: 06-16-2025 Lipid 1996 panel - Serum or Plasma Lipid panel Lab Routine Mixed hyperlipidemia (CMS/HCC) Expected: 06/16/2024 (Approximate), Expires: 06/16/2025 [facility] Comment on above: Expected: 06/16/2024 (Approximate), Expires: 06/16/2025 Start: 06-16-2024 End: 06-16-2025 Microalbumin/Creatinine panel in random Urine Microalbumin / creatinine, urine ratio Lab Routine Primary hypertension (CMS/HCC) Expected: 06/16/2024 (Approximate), Expires: 06/16/2025 [facility] Comment on above: Expected: 06/16/2024 (Approximate), Expires: 06/16/2025 Start: 06-16-2024 End: 06-16-2025 Thyrotropin [Units/volume] in Serum or Plasma TSH Lab Routine Mixed hyperlipidemia (CMS/HCC) Expected: 06/16/2024 (Approximate), Expires: 06/16/2025 [facility] Comment on above: Expected: 06/16/2024 (Approximate), Expires: 06/16/2025 Start: 06-16-2024 End: 06-16-2025 Urinalysis complete panel - Urine Urinalysis with reflex microscopic (clean catch) Lab Routine Primary hypertension ([facility]) Tobacco dependence Expected: 06/16/2024 (Approximate), Expires: 06/16/2025 [facility] Comment on above: Expected: 06/16/2024 (Approximate), Expires: 06/16/2025 Immunizations Immunization Date Immunization Notes Care Provider Lou fajardo 03-12-2002 hepatitis B vaccine, pediatric or pediatric/adolescent dosage Grisel Aichholz BRIQUETTER OPERATOR Work Phone: [facility] 03-12-2002 measles, mumps and rubella virus vaccine Grisel Aichholz BRIQUETTER OPERATOR Work Phone: [facility] 12-25-2001 hepatitis B vaccine, pediatric or pediatric/adolescent dosage Grisel Aichholz BRIQUETTER OPERATOR Work Phone: [facility] 10-19-1999 hepatitis B vaccine, pediatric or pediatric/adolescent dosage Grisel Aichholz BRIQUETTER OPERATOR Work Phone: [facility] 12-11-1994 diphtheria, tetanus toxoids and acellular pertussis vaccine, unspecified formulation Grisel Aichholz BRIQUETTER OPERATOR Work Phone: [facility] 06-12-1992 diphtheria, tetanus toxoids and pertussis vaccine Grisel Aichholz BRIQUETTER OPERATOR Work Phone: [facility] 06-12-1992 haemophilus influenz ae type b vaccine, conjugate unspecified formulation Grisel Aichholz BRIQUETTER OPERATOR Work Phone: [facility] 06-12-1992 measles, mumps and rubella virus vaccine Grisel Aichholz BRIQUETTER OPERATOR Work Phone: [facility] 06-12-1992 trivalent poliovirus vaccine, live, oral Grisel Aichholz BRIQUETTER OPERATOR Work Phone: [facility] 04-28-1991 diphtheria, tetanus toxoids and pertussis vaccine Grisel Aichholz BRIQUETTER OPERATOR Work Phone: [facility] 04-28-1991 haemophilus influenz ae type b vaccine, conjugate unspecified formulation Grisel Aichholz BRIQUETTER OPERATOR Work Phone: [facility] 04-28-1991 trivalent poliovirus vaccine, live, oral Grisel Aichholz BRIQUETTER OPERATOR Work Phone: [facility] 01-18-1991 diphtheria, tetanus toxoids and pertussis vaccine Grisel Aichholz BRIQUETTER OPERATOR Work Phone: [facility] 01-18-1991 haemophilus influenz ae type b vaccine, conjugate unspecified formulation Grisel Aichholz BRIQUETTER OPERATOR Work Phone: [facility] 01-18-1991 trivalent poliovirus vaccine, live, oral Grisel Aichholz BRIQUETTER OPERATOR Work Phone: [facility] Payers Date Payer Category Payer [facility] [id number] 1990 Unknown [id number] 1990 Unknown [id number] 1990 Unknown [id number] 1959 Unknown [id number] Social History Date Type Detail Facility Start: 04-10-2023 End: 06-16-2024 Sex Assigned At [facility] [employer] [facility] Other Start: 04-10-2023 End: 06-16-2024 Tobacco smoking [...] Ann NP - 06/16/2024 6:53 PM EDTHSHANE MTAHEW - 06/16/2024 6:00 PM EDT Note Date [...] compliance problems. There is no history of CAD/VT, heart failure or PVD. SUBJECTIVE: MEDICATIONS: Current [...] of the risks of continued smoking: stroke, VT, all forms of cancer, lung disease, and [...] of the risks of continued smoking: stroke, VT, all forms of cancer, lung disease, and [...] dose to 10mg documented in this encounter [facility] Healthcare Instructions 06-16-2024 Patient Instructions Note Date & Type Note Facility 06-16-2024 Instructions Grisel Ann NP - 06/16/2024 6:00 PM EDT Stop the amlodipine 5mg script, new dose is 10mg , take 1 pill daily We are going to check an Ultra sound of your heart, called an [facility] will call you about setting this up Check labs fasting 8 hours documented in this encounter [facility] Healthcare Evaluation note 05-10-2022 Note Date & Type Note Facility 07-24-2021 Evaluation note Encounter Date Diagnosis Assessment Notes July, Abdominal pain (ICD-10 - R10.9) July, Fecal urgency (ICD-10 - R15.2) [facility] Other Evaluation note Note Date & Type Note Facility Evaluation note Diagnosis URTI (acute upper respiratory infection)- Primary Acute upper respiratory infections of unspecified site Primary hypertension ([facility]/HCC) Unspecified essential hypertension Other hyperlipidemia Pre-diabetes Other abnormal glucose Tobacco abuse Tobacco use disorder Irritable bowel syndrome with diarrhea Irritable bowel syndrome Primary hypertension (CMS/HCC)- Primary Unspecified essential hypertension Tobacco dependence Tobacco use disorder Mixed hyperlipidemia (CMS/HCC) Mixed hyperlipidemia Heart murmur Undiagnosed cardiac murmurs Pre-diabetes Other abnormal glucose Hyperlipidemia, unspecified hyperlipidemia type ([facility]) Irritable bowel syndrome with diarrhea Irritable bowel [...] section and content) DATE CREATED AUTHOR 11/03/2019 [facility] DATE CREATED AUTHOR AUTHOR'S ORGANIZ ATION 10/19/2020 [facility] DATE CREATED AUTHOR AUTHOR'S ORGANIZ ATION 08/23/2021 [facility] DATE CREATED AUTHOR AUTHOR'S ORGANIZ ATION 06/19/2024 [facility] dical Specialists EPIC REASON FOR VISIT (unrecogniz ed section and content) PATIENT REFERRED HERE BY DR. MORENO FOR ABDOMINAL PAIN. PT DOES TAKE MEDICATION BUT DOES NOT RECALL NAMES OR DOSAGES NOR DOES HE HAVE A LIST TO REVIEW Care Teams (unrecognized sec tion and content) Lighter Relationship Specialty Start Date End Date Shaikh Moreno MD [address] [place] [address] PCP - [facility] 03/17/23 Tony Eller MD [address] [place] [address] PCP [facility] 06/16/24 Lighter Relationship Specialty Start Date End Date Shaikh Moreno MD [address] [place] [address] PCP - [facility] 03/17/23 Tony Eller MD [address] [place] [address] PCP - [facility] 06/16/24 FOR RECORDS PERTAINING TO PATIENTS [...] BE BASED ON THE PRIMARY CLINICAL RECORDS. [employer] [facility]. provides no warranty or guarantee of the accuracy or completeness of information in this document.
[2024-07-02 14:59] LABS: Basophils Percent Auto 0.4 % (0.2-2.0); Eosinophils Absolute Auto 0.2 10^3/uL (0.0-0.7); Eosinophils Percent Auto 1.8 % (0.9-7.0); Hematocrit 45.4 % (42.0-54.0); Hemoglobin 15.3 g/dL (14.0-18.0); Immature Granulocytes Abs Auto 0.03 10^3/uL (0.00-0.03); Immature Granulocytes Pct Auto 0.4 % (0.0-0.5); Lymphocytes Absolute Auto 2.2 10^3/uL (1.2-3.8); Lymphocytes Percent Auto 25.6 % (20.5-60.0); Mean Corpuscular HGB Conc 33.7 g/dL (29.9-35.2); Mean Corpuscular Hemoglobin 28.5 pg (25.9-34.0); Mean Corpuscular Volume 84.7 fL (80.0-94.0); Mean Platelet Volume 9.7 fL (9.5-13.5); Monocytes Absolute Auto 0.7 10^3/uL (0.3-0.8); Monocytes Percent Auto 7.6 % (1.7-12.0); Neutrophils Absolute Auto 5.5 10^3/uL (1.4-6.5); Neutrophils Percent Auto 64.2 % (43.0-75.0); Platelet Count 326 10^3/uL (150-450); Red Blood Count 5.36 10^6/uL (4.70-6.10); Red Cell Distribution Width 12.7 % (11.0-15.0); White Blood Count 8.5 10^3/uL (4.0-11.0)
[2024-07-02 15:12] LABS: Bilirubin Urine NEGATIVE (NEGATIVE); Blood Urine NEGATIVE (NEGATIVE); Clarity Urine CLEAR (CLEAR); Color Urine YELLOW (YELLOW); Glucose Urine UA NEGATIVE (NEGATIVE); Ketones Urine NEGATIVE (NEGATIVE); Leukocyte Esterase Urine NEGATIVE (NEGATIVE); Nitrite Urine NEGATIVE (NEGATIVE); Protein Urine NEGATIVE (NEG/TRACE); Specific Gravity Urine 1.025 (1.005-1.025); Urobilinogen Urine 0.2 EU/dL (0.2-1.0)
[2024-07-02 15:22] LABS: Urine Microscopic Indicated NO
[2024-07-02 15:32] LABS: Creatinine Urine Random 214.13 mg/dL (20.00-300.00); Microalbum Creatinine Ratio Ur 10.7 mg/g (0.0-29.9); Microalbumin Urine Random 2.3 mg/dL (<=30.0)
[2024-07-02 15:34] LABS: Estimated Average Glucose 126 mg/dL
[2024-07-02 15:44] LABS: Alanine Aminotransferase 82 U/L (16-63); Albumin Globulin Ratio 1.3; Albumin Level 4.2 g/dL (3.4-5.0); Alkaline Phosphatase 108 U/L (46-116); Aspartate Amino Transferase 33 U/L (15-37); BUN Creatinine Ratio 17.9; Bilirubin Total 0.5 mg/dL (0.2-1.0); Carbon Dioxide 27.8 mmol/L (21.0-32.0); Chloride 105 mmol/L (98-107); Chol HDL Ratio 3.5; Cholesterol 153 mg/dL (<=200); Estimated GFR (African America >60 (>=60 mL/min/1.73m^2); Estimated GFR (Non-African Ame >60 (>=60 mL/min/1.73m^2); Globulin 3.2 g/dL; Glucose 95 mg/dL (74-106); HDL Cholesterol 44 mg/dL (40-60); Potassium 3.8 mmol/L (3.5-5.1); Sodium 141 mmol/L (136-145); Thyroid Stimulating Hormone 1.853 uIU/mL (0.358-3.740); Total Protein 7.4 g/dL (6.4-8.2); Triglycerides 80 mg/dL (<=150)
== END 2024-07-02 14:30 | disposition home or self-care (01) ==
LOC: LAB 14:32
PROVIDERS: PCP Nurse Practitioner; Visit Provider Nurse Practitioner
DX: E78.2 Mixed hyperlipidemia (principal); I10 Essential (primary) hypertension; F17.200 Nicotine dependence, unspecified, uncomplicated; R73.03 Prediabetes
CPT/HCPCS: 36415; 80053; 80061; 81001; 81003; 82043; 82570; 83036; 84443; 85025

== ENCOUNTER 2024-08-03 19:54 | Emergency (ER) | payer BC, SELFPAY ==
--- OUTSIDE RECORDS SUMMARY | 2024-08-03 19:59 | XMS_ITS | CCD ---
Author Organization [facility] Care Team Providers Care Motor Vehicle Field Representative Name Role Phone SHAIKH MORENO Primary Care Unavailable FAWWAD, LOPEZ Admitting Unavailable FAELMER, LOPEZ Attending Unavailable FAWMARCUSD, LOPEZ Consulting Unavailable FAWWAD, LOPEZ Primary Care Unavailable FAWWAD, LOPEZ Admitting Unavailable Manolo Almanza Consulting Unavailable FAWKIMBERLEE, LOPEZ Attending Unavailable FAELMER, LOPEZ Consulting Unavailable Isacc Anderson Unavailable Shaikh Moreno MD Unavailable Tony Eller MD Primary Care Provider GRISEL ANN Attending Unavailable Medications Current Medications Medication Drug Class(es) Dates Sig (Normalized) Sig (Original) amLODIPine 10 mg oral tablet (7 sources) Dihydropyridine Calcium Channel Cassandra Start: 06-16-2024 [...] Discontinued (Ineffective) atorvastatin 20 mg oral tablet (7 sources) HMG-CoA Reductase Inhibitor Start: 08-12-2023 End: 12-13-2024 take 1 tablet by mouth in the morning atorvastatin (Lipitor) 20 MG tablet Indications: Hyperlipidemia, unspecified hyperlipidemia type (CMS/HCC) Take 1 tablet (20 mg) by mouth in the morning. 90 tablet 06/16/2024 12/13/2024 Active dicyclomine hydrochloride 10 mg oral capsule (5 sources) Anticholinergic Start: 09-29-2023 take 1 capsule by mouth four times daily as needed for pain dicyclomine (Bentyl) 10 MG capsule Indications: Irritable bowel syndrome with diarrhea TAKE 1 CAPSULE BY MOUTH 4 TIMES A DAY NEEDED FOR ABDOMINAL CRAMPS/ PAIN 120 capsule 3 09/29/2023 Active ondansetron 4 mg disintegrating oral tablet (5 sources) Serotonin-3 Receptor Antagonist Start: 06-08-2024 ondansetron ODT (Zofran-ODT) 4 MG disintegrating tablet DISSOLVE 1 TABLET ON THE TONGUE EVERY 6 HOURS NEEDED FOR NAUSEA AND VOMITING 06/08/2024 Active pantoprazole 40 mg delayed release oral tablet (7 sources) Proton Pump Inhibitor Start: 09-29-2023 End: 09-14-2024 take 1 tablet by mouth once daily pantoprazole (ProtoNix) 40 MG EC tablet Indications: Irritable bowel syndrome with diarrhea Take 1 tablet (40 mg) by mouth Daily 90 tablet 06/16/2024 09/14/2024 Active valACYclovir 500 mg oral tablet (7 sources) Herpesvirus Nucleoside Analog DNA Polymerase Inhibitor, [...] extended release oral tablet (3 sources) Uncompetitive S-lyfiel-C-aspartat e Receptor Antagonist, Sigma-1 Agonist Start: 06-08-2024 [...] in the morning varenicline (Chantix Continuing Month ) 1 MG tablet Indications: Tobacco abuse Take 1 tablet (1 mg) by mouth in the morning and 1 tablet (1 mg) before bedtime. Take with full glass of water.. 60 tablet 2 06/09/2023 06/16/2024 Discontinued (Therapy completed) Problems Active Problems Problem Classification Problem Date Documented Da te Episodic/Chronic Abdominal pain (6 sources) Unspecified abdominal pain; Translations: [Abdominal pain] Onset: 10-07-2020 Resolved: 07-24-2021 Episodic Disorders of lipid metabolism (14 sources) Mixed hyperlipidemia; Translations: [Mixed hyperlipidemia] Onset: 04-10-2023 Resolved: 06-16-2024 06-16-2024 Chronic Essential hypertension (7 sources) Essential hypertension; Translations: [Essential (primary) hypertension] Onset: 04-10-2023 04-10-2023 Chronic Heart valve disorders (8 sources) Heart murmur; Translations: [Cardiac murmur, unspecified] Onset: 06-16-2024 06-16-2024 Episodic Other gastrointestinal disorders (7 sources) Irritable bowel syndrome with diarrhea; Translations: [Irritable bowel syndrome with diarrhea] Onset: 04-10-2023 04-10-2023 Chronic Other screening for suspected conditions (not mental disorders or infectious disease) (2 sources) Encounter for screening for diabetes mellitus; Translations: [Encounter for screening for lipoid disorders] Onset: 08-10-2020 Episodic Substance-related disorders (7 sources) Tobacco dependence syndrome; Translations: [Nicotine dependence, unspecified, uncomplicated] Onset: 06-16-2024 06-16-2024 Chronic Past or Other Problems Problem Classification Problem Date Documented Da te Episodic/Chronic Diabetes mellitus without complication (7 sources) Prediabetes; Translations: [Prediabetes] Onset: 04-10-2023 04-10-2023 Episodic Other gastrointestinal disorders (1 source) Fecal urgency Onset: 07-24-2021 Resolved: 07-24-2021 Episodic Other infections; including parasitic (7 sources) History of sexually transmitted disease; Translations: [Personal history of other infectious and parasitic diseases] Onset: 04-10-2023 04-10-2023 Episodic Other upper respiratory infections (5 sources) Acute upper respiratory infection; Translations: [Acute upper respiratory infection, unspecified] Onset: 04-10-2023 Resolved: 06-16-2024 04-10-2023 Episodic Residual codes; unclassified (5 sources) Tobacco user; Translations: [Tobacco use] Onset: 04-10-2023 Resolved: 06-16-2024 06-16-2024 Episodic Results Test Name Value Interpretation Reference Range Facility ALL CBC WITH AUTO DIFFon BASOPHILS ABSOLUTE AUTO 0 [facility] Basophils/100 WBC (Bld) 0.4 % 0.2 - 2.0 % [facility] Eosinophils/100 WBC (Bld) 1.8 % 0.9 - 7.0 % [facility] Erythrocyte distribution width (RBC) [Ratio] 12.7 % 11.0 - 15.0 % [facility] Hematocrit (Bld) [Volume fraction] 45.4 % 42.0 - 54.0 % [facility] Hemoglobin (Bld) [Mass/Vol] 15.3 g/dL 14.0 - 18.0 g/dL [facility] IMMATURE GRANULOCYTES ABS AUTO 0.03 [facility] Immature granulocytes/100 WBC (Bld) 0.4 % 0.0 - 0.5 % [facility] LYMPHOCYTES ABSOLUTE AUTO 2.2 [facility] Lymphocytes/100 WBC (Bld) 25.6 % 20.5 - 60.0 % [facility] MCH (RBC) [Entitic mass] 28.5 pg 25.9 - 34.0 pg [facility] MCHC (RBC) [Mass/Vol] 33.7 g/dL 29.9 - 35.2 g/dL [facility] MCV (RBC) [Entitic vol] 84.7 fL 80.0 - 94.0 fL [facility] MONOCYTES ABSOLUTE AUTO 0.7 [facility] Monocytes/100 WBC (Bld) 7.6 % 1.7 - 12.0 % [facility] NEUTROPHILS ABSOLUTE AUTO 5.5 [facility] Neutrophils/100 WBC (Bld) 64.2 % 43.0 - 75.0 % [facility] Platelet mean volume (Bld) [Entitic vol] 9.7 fL 9.5 - 13.5 fL [facility] EO # 0.2 [facility] PLT 326 [facility] RBC 5.36 [facility] WBC 8.5 [facility] CA ECHO DOPPLER COMPLETEon 0 07-02-2024 [place] [address] Cardiology Report Signed Patient: NAIF PRICE MR#: [id number] : 1990 Acct:[id number] Age/Sex: 33 / M ADM Date: 07/02/24 Loc: CARD Attending Dr: Grisel Ann NP Ordering Physician: Grisel Ann NP Date of Service: 07/02/24 Procedure(s): CA echo doppler complete Accession Number(s): [id number] cc: Grisel Ann NP Patient Name: NAIF PRICE MR#: [id number] : 1990 Exam Date: 07/02/2024 Ordering Doctor: SAURABH ANN CNP ECHOCARDIOGRAM REPORT PROCEDURE: CA ECHO DOPPLER COMPLETE INDICATIONS: Heart murmur, chest pain, hypertension, smoker COMPARISON: None. DESCRIPTION: COMPLETE ECHOCARDIOGRAM Real-time transthoracic echocardiography with 2D, M-mode, spectral and color flow Doppler performed. QUALITY: Technical quality was good. LEFT VENTRICLE: Normal chamber size. Proximal septal hypertrophy (sigmoid septum). Normal systolic function. LV EF: Normal left ventricular ejection fraction, (60-65%). DIASTOLIC: Normal diastolic function. ATRIAL SEPTUM: Visually appears intact. LEFT ATRIUM: Normal chamber size. RIGHT ATRIUM: Normal chamber size. RIGHT VENTRICLE: Normal chamber size. Normal right ventricular systolic function. TRICUSPID VALVE: Normal mobility and thickness. No stenosis with no regurgitation. Unable to assess right-sided pressures due to lack of measurable tricuspid regurgitation. MITRAL VALVE: Normal mobility and thickness. No evidence of mitral valve stenosis. There is no mitral annular calcification. Trivial mitral regurgitation. AORTIC VALVE: Normal trileaflet appearance. No visible sclerosis. Normal leaflet mobility. No evidence of aortic valve stenosis. No aortic regurgitation. AORTIC ROOT: Normal diameter and appearance, measuring 2.8 cm. Ascending aorta is normal in size, measuring 2.4 cm. PULMONIC VALVE: Normal thickness and mobility. No stenosis. No regurgitation. PERICARDIUM: No evidence of pericardial effusion. IVC: Collapses with inspirations. IVC is normal in size. PLEURA: CONCLUSION: 1. Normal left ventricular size and systolic function. Estimated LVEF is 60 to 65%. 2. Normal right ventricular size and systolic function. 3. Normal diastolic function. 4. No significant valvular dysfunction. 5. Unable to assess right-sided pressures due to lack of measurable tricuspid regurgitation. Adult Echocardiography Procedure Report Left Ventricle LVEDD (3.7 - 5.6 cm): 4.41 cm LVESD (2.2 - 4.0 cm): 2.98 cm LVIVS thickness (0.6 - 1.2 cm): 1.11 cm LVPW thickness (0.5 - 1.0 cm): 0.99 cm e': 0.19 m/s E - e': 4.52 LVOT Max Gradient: 5.04 mm[Hg] LVOT Area (cm2): 1.12 m/s Peak Velocity (LVOT): 1.12 m/s Mean Velocity (LVOT): 0.71 m/s LVOT Diameter 2.38 cm Left Atrium LA Volume Index (2D A2C): 26.85 ml/m2 Left Atrium Systolic Dimension: 3.93 cm Mitral Valve MV E to A Ratio: 1.37 Mitral Valve A-Wave Peak Velocity: 0.64 m/s Mitral Valve E-Wave Peak Velocity: 0.88 m/s Right Ventricle Aorta AO Root Diam: 2.76 cm Ascending Ao Diam: 2.44 cm Aortic Valve AoV Area (Peak Luis): 4.18 cm2, 4.18 cm2 AoV Area (VTI): 4.53 cm2, 4.53 cm2 Peak Velocity(Antegrade Flow): 1.19 m/s Peak Gradient(Antegrade Flow): 5.68 mm[Hg] Mean Velocity(Antegrade Flow): 0.75 m/s Mean Gradient(Antegrade Flow): 2.68 mm[Hg] Velocity Time Integral: 22.55 cm Tricuspid Valve Pulmonic Valve Mean Gradient: 2.80 mm[Hg] Mean Velocity: 0.77 m/s Peak Velocity: 1.24 m/s, 1.22 m/s Peak Gradient: 5.95 mm[Hg], 6.12 mm[Hg] Right Atrium Right Atrium Systolic Pressure: 44.76 ml, 44.76 ml Dictated by: Edil Black M.D. on 07/02/2024 at 17:17 Approved by: Edil Black M.D. on 07/02/2024 at 17:20 Dictated By: EDIL BLACK (more content not included)... [facility] Radiology, Radiologist, - 07/02/2024 [place] [address] Cardiology Report Signed Patient: NAIF PRICE MR#: [id number] : 1990 Acct:[id number] Age/Sex: 33 / M ADM Date: 07/02/24 Loc: CARD Attending Dr: Grisel Ann NP Ordering Physician: Grisel Ann NP Date of Service: 07/02/24 Procedure(s): CA echo doppler complete Accession Number(s): [id number] cc: Grisel Ann NP Patient Name: NAIF PRICE MR#: [id number] : 1990 Exam Date: 07/02/2024 Ordering Doctor: SAURABH ANN CAN RECONDITIONER ECHOCARDIOGRAM REPORT PROCEDURE: CA ECHO DOPPLER COMPLETE INDICATIONS: Heart murmur, chest pain, hypertension, smoker COMPARISON: None. DESCRIPTION: COMPLETE ECHOCARDIOGRAM Real-time transthoracic echocardiography with 2D, M-mode, spectral and color flow Doppler performed. QUALITY: Technical quality was good. LEFT VENTRICLE: Normal chamber size. Proximal septal hypertrophy (sigmoid septum). Normal systolic function. LV EF: Normal left ventricular ejection fraction, (60-65%). DIASTOLIC: Normal diastolic function. ATRIAL SEPTUM: Visually appears intact. LEFT ATRIUM: Normal chamber size. RIGHT ATRIUM: Normal chamber size. RIGHT VENTRICLE: Normal chamber size. Normal right ventricular systolic function. TRICUSPID VALVE: Normal mobility and thickness. No stenosis with no regurgitation. Unable to assess right-sided pressures due to lack of measurable tricuspid regurgitation. MITRAL VALVE: Normal mobility and thickness. No evidence of mitral valve stenosis. There is no mitral annular calcification. Trivial mitral regurgitation. AORTIC VALVE: Normal trileaflet appearance. No visible sclerosis. Normal leaflet mobility. No evidence of aortic valve stenosis. No aortic regurgitation. AORTIC ROOT: Normal diameter and appearance, measuring 2.8 cm. Ascending aorta is normal in size, measuring 2.4 cm. PULMONIC VALVE: Normal thickness and mobility. No stenosis. No regurgitation. PERICARDIUM: No evidence of pericardial effusion. IVC: Collapses with inspirations. IVC is normal in size. PLEURA: CONCLUSION: 1. Normal left ventricular size and systolic function. Estimated LVEF is 60 to 65%. 2. Normal right ventricular size and systolic function. 3. Normal diastolic function. 4. No significant valvular dysfunction. 5. Unable to assess right-sided pressures due to lack of measurable tricuspid regurgitation. Adult Echocardiography Procedure Report Left Ventricle LVEDD (3.7 - 5.6 cm): 4.41 cm LVESD (2.2 - 4.0 cm): 2.98 cm LVIVS thickness (0.6 - 1.2 cm): 1.11 cm LVPW thickness (0.5 - 1.0 cm): 0.99 cm e': 0.19 m/s E - e': 4.52 LVOT Max Gradient: 5.04 mm[Hg] LVOT Area (cm2): 1.12 m/s Peak Velocity (LVOT): 1.12 m/s Mean Velocity (LVOT): 0.71 m/s LVOT Diameter 2.38 cm Left Atrium LA Volume Index (2D A2C): 26.85 ml/m2 Left Atrium Systolic Dimension: 3.93 cm Mitral Valve MV E to A Ratio: 1.37 Mitral Valve A-Wave Peak Velocity: 0.64 m/s Mitral Valve E-Wave Peak Velocity: 0.88 m/s Right Ventricle Aorta AO Root Diam: 2.76 cm Ascending Ao Diam: 2.44 cm Aortic Valve AoV Area (Peak Luis): 4.18 cm2, 4.18 cm2 AoV Area (VTI): 4.53 cm2, 4.53 cm2 Peak Velocity(Antegrade Flow): 1.19 m/s Peak Gradient(Antegrade Flow): 5.68 mm[Hg] Mean Velocity(Antegrade Flow): 0.75 m/s Mean Gradient(Antegrade Flow): 2.68 mm[Hg] Velocity Time Integral: 22.55 cm Tricuspid Valve Pulmonic Valve Mean Gradient: 2.80 mm[Hg] Mean Velocity: 0.77 m/s Peak Velocity: 1.24 m/s, 1.22 m/s Peak Gradient: 5.95 mm[Hg], 6.12 mm[Hg] Right Atrium Right Atrium Systolic Pressure: 44.76 ml, 44.76 ml Dictated by: Edil Black M.D. on 07/02/2024 at 17:17 Approved by: Edil Black M.D. on 07/02/2024 at 17:20 Dictated By: EDIL BLACK Signed By: 07/02/241720 DD/ 20 TD/TT: Blood Bank Business Manager: [facility] [employer] Radiology Study observation (narrative) [facility] [employer] CA ECHO DOPPLER COMPLETEOrde red By: Radiologist Radiology on 07-02-2024 [email or web address]: Gerald 08-17-2021 L - -------- Specimen: [id number] Received: 08/17/21 Status: ALLISON Mccray Num: [id number] Spec Type: Surgical Subm Dr: Isacc Anderson MD Tissues: A Duodenum - Biopsy (DUODENAL BX) B Colon Biopsy (SURVEILLANCE COLON BX) Procedures: HE Stain/4, Gross/Micro L4/2 -------- Patient Age/Sex Location Account Attending Physician -------- Naif Price 30/M [id number] Isacc Anderson MD -------- SPEC NUM: [id number] RECD: 08/17/21 STATUS: ALLISON MCCRAY NUM: [id number] ANKIT: 08/17/21- [facility] DR: Isacc Anderson MD ENTERED: 08/17/21 [facility] DR: RENETTA TYPE: Surgical DEPT: [...] Type of Fixative: 10% Neutral Buffered Formalin (/YAlexia) B. Received in formalin labeled with the patient's name, number and surveillance colon biopsy are three warner-pink tissue fragments, 0.3 cm each. Entirely submitted in one cassette labeled B1. Type of Fixative: 10% Neutral Buffered Formalin (SM/YJ) -------- Specimen: [id number] Received: 08/17/21 Status: ALLISON Mccray Num: [id number] Spec Type: Surgical Subm Dr: Isacc Anderson MD Tissues: A Duodenum - Biopsy (DUODENAL BX) B Colon Biopsy (SURVEILLANCE COLON BX) Procedures: HE Stain/4, Gross/Micro L4/2 -------- Patient: CaityShelleyfunmi Larry [id number] (Continued) -------- Specimen: [id number] Received: 08/17/21 (Continued) Signed (signature on file) Bari Ann MD 08/20/21 1413 -------- Specimen: [id number] Received: 08/17/21 Status: ALLISON Mccray Num: [id number] Spec Type: Surgical Subm Dr: Isacc Anderson MD Tissues: A Duodenum - Biopsy (DUODENAL BX) B Colon Biopsy (SURVEILLANCE COLON BX) Procedures: HE Stain/4, Gross/Micro L4/2 -------- Patient: Naif Price [id number] (Continued) -------- Specimen: [id number] Received: 08/17/21 (Continued) Microscopic Description A. Two H E slides are reviewed. Microscopic examination is performed. B. Two H E slides are reviewed. Microscopic examination is performed. This case is interpreted at [place], [place]. CPT Codes A. [address] B. 17856 -------- -------- Specimen: [id number] Received: 08/17/21 Status: ALLISON Mccary Num: [id number] Spec Type: Surgical Subm Dr: Isacc Anderson MD Tissues: A Duodenum - Biopsy (DUODENAL BX) B Colon Biopsy (SURVEILLANCE COLON BX) Procedures: HE Stain/4, Gross/Micro L4/2 -------- Patient: Naif Price [id number] (Continued) -------- Signed (signature on file) Bari Ann MD 08/20/21 1413 Normal [facility] Bowel Disorders [place] Antigliadin IgG 3 Normal 0-19 [facility] Comment on above: Order Comment: Reaso n for Exam Abdominal pain;Fecal urgency Result Comment: Nega tive 0 - 19 Weak Positive 20 - 30 Moderate to Strong Positive >30 Performed By: #### C MP, CBC, THYROID SC #### [facility] [address] [place] [address] [place] #### BOWEL CASC #### [facility] , Atypical pANCA Negative Normal Negative [facility] Comment on above: Order Comment: Reaso n for Exam Abdominal pain;Fecal urgency Performed By: #### C MP, CBC, THYROID SC #### [facility] [address] [place] [address] [place] #### BOWEL CASC #### [facility] , Bowel Disorders Gate Negative Normal Negative [facility] Comment on above: Order Comment: Reaso n for Exam Abdominal pain;Fecal urgency Performed By: #### C MP, CBC, THYROID SC #### [facility] [address] [place] [address] #### BOWEL CASC #### [facility] , Note Gate continues Normal . [facility] Comment on above: Order Comment: Reaso n for Exam Abdominal pain;Fecal urgency Performed By: #### C MP, CBC, THYROID SC #### [address] #### BOWEL CASC #### [facility] , Note Normal . [facility] Comment on above: Order Comment: Reaso n for Exam Abdominal pain;Fecal urgency Result Comment: Sugg estive of irritable bowel syndrome (IBS). Careful evaluation of the patient's history, physical examination, and application of Alonso III diagnostic criteria may help to rule in or rule out the diagnosis of IBS. Subsequent testing for Fecal Calprotectin (821576) may be recommended. If IBD is strongly suspected, subsequent testing with the Crohn's Disease Prognostic Profile (706429) that includes anti-glycan antibodies AMCA, ALCA, ACCA, and Nawaf may aid in differential diagnosis. Performed at: [address] [id number] Manager Process Excellence: Gary Villegas MD, Phone: [phone] PERFORMED BY: [place] [address] PATHOLOGIST INTERVENTIONAL RADIOLOGY TECHNOLOGIST LASHELL LEIGH M.D. Performed By: #### C MP, CBC, THYROID SC #### [address] #### BOWEL CASC #### [facility] , Saccharomyces cerevisiae, IgG < 20.0 Normal 0.0-24.9 [facility] Comment on above: Order Comment: Reaso n for Exam Abdominal pain;Fecal urgency Result Comment: Nega tive <20.0 Equivocal 20.1 - 24.9 Positive >or= 25.0 Performed By: #### C MP, CBC, THYROID SC #### [facility] [address] #### BOWEL CASC #### [facility] , COVID-19 FRon 08-14-2021 SARS-CoV-2 (COVID-19) RNA GREGORY+probe Ql (Unsp spec) Negative Normal Negative [facility] Comment on above: Order Comment: Healt hcare Worker?: N Result Comment: Testing for SARS-CoV-2 by RT-PCR This test was developed and its performance characteristics determined by [employer] ([employer]) and validated at the [facility]. This test has not been FDA cleared [...] is terminated or revoked sooner. PERFORMED BY: [place] [address] PATHOLOGIST INTERVENTIONAL RADIOLOGY TECHNOLOGIST LASHELL LEIGH M.D. Performed By: #### C OVID [address] [place] #### [place] [id number] [facility] Complete Blood Count Auto Di ffon 08-14-2021 Basophils (Bld) [#/Vol] 0.0 10*3/uL Normal 0.0-0.2 [facility] Comment on above: Order Comment: Reaso n for Exam Abdominal pain;Fecal urgency Result Comment: PERF ORMED BY: [place] [address] PATHOLOGIST INTERVENTIONAL RADIOLOGY TECHNOLOGIST LASHELL LEIGH M.D. Performed By: #### C MP, CBC, THYROID SC #### [place] [address] [place] #### BOWEL CASC #### [facility] , Basophils/100 WBC (Bld) 0.5 % Normal . [facility] Comment on above: Order Comment: Reaso n for Exam Abdominal pain;Fecal urgency Performed By: #### C MP, CBC, THYROID SC #### [place] [address] [place] #### BOWEL CASC #### [facility] , Eosinophils (Bld) [#/Vol] 0.1 10*3/uL Normal 0.0-0.45 [facility] Comment on above: Order Comment: Reaso n for Exam Abdominal pain;Fecal urgency Performed By: #### C MP, CBC, THYROID SC #### [address] #### BOWEL CASC #### [facility] , Eosinophils/100 WBC (Bld) 1.3 % Normal . [facility] Comment on above: Order Comment: Reaso n for Exam Abdominal pain;Fecal urgency Performed By: #### C MP, CBC, THYROID SC #### [place] [address] [place] #### BOWEL CASC #### [facility] , Erythrocyte distribution width (RBC) [Ratio] 13.5 % Normal 12.0-14.8 [facility] Comment on above: Order Comment: Reaso n for Exam Abdominal pain;Fecal urgency Performed By: #### C MP, CBC, THYROID SC #### [place] [address] [place] #### BOWEL CASC #### [facility] , Hematocrit (Bld) [Volume fraction] 47.1 % Normal 38.8-50.0 [facility] Comment on above: Order Comment: Reaso n for Exam Abdominal pain;Fecal urgency Performed By: #### C MP, CBC, THYROID SC #### [address] [place] [address] [place] #### BOWEL CASC #### [facility] , Hemoglobin (Bld) [Mass/Vol] 15.7 g/dL Normal 13.0-17.0 [facility] Comment on above: Order Comment: Reaso n for Exam Abdominal pain;Fecal urgency Performed By: #### C MP, CBC, THYROID SC #### [address] #### BOWEL CASC #### [facility] , Lymphocytes (Bld) [#/Vol] 1.5 10*3/uL Normal 1.00-4.8 [facility] Comment on above: Order Comment: Reaso n for Exam Abdominal pain;Fecal urgency Performed By: #### C MP, CBC, THYROID SC #### [address] #### BOWEL CASC #### [facility] , Lymphocytes/100 WBC (Bld) 21.2 % Normal . [facility] Comment on above: Order Comment: Reaso n for Exam Abdominal pain;Fecal urgency Performed By: #### C MP, CBC, THYROID SC #### [address] #### BOWEL CASC #### [facility] , MCH (RBC) [Entitic mass] 28.1 pg Normal 27.5-35.2 [facility] Comment on above: Order Comment: Reaso n for Exam Abdominal pain;Fecal urgency Performed By: #### C MP, CBC, THYROID SC #### [place] [address] [place] #### BOWEL CASC #### [facility] , MCV (RBC) [Entitic vol] 84.5 fL Normal 83.5-101 [facility] Comment on above: Order Comment: Reaso n for Exam Abdominal pain;Fecal urgency Performed By: #### C MP, CBC, THYROID SC #### [place] [address] [place] #### BOWEL CASC #### [facility] , Mean Corpuscular HGB Conc 33.3 g/dL Normal 32.5-35.6 [facility] Comment on above: Order Comment: Reaso n for Exam Abdominal pain;Fecal urgency Performed By: #### C MP, CBC, THYROID SC #### [place] [address] [place] #### BOWEL CASC #### [facility] , Monocytes (Bld) [#/Vol] 0.7 10*3/uL Normal 0.0-0.8 [facility] Comment on above: Order Comment: Reaso n for Exam Abdominal pain;Fecal urgency Performed By: #### C MP, CBC, THYROID SC #### [address] #### BOWEL CASC #### [facility] , Monocytes/100 WBC (Bld) 10.5 % Normal . [facility] Comment on above: Order Comment: Reaso n for Exam Abdominal pain;Fecal urgency Performed By: #### C MP, CBC, THYROID SC #### [place] [address] [place] #### BOWEL CASC #### [facility] , Neutrophils (Bld) [#/Vol] 4.6 10*3/uL Normal 1.8-7.7 [facility] Comment on above: Order Comment: Reaso n for Exam Abdominal pain;Fecal urgency Performed By: #### C MP, CBC, THYROID SC #### [place] [address] [place] #### BOWEL CASC #### [facility] , Neutrophils/100 WBC (Bld) 66.5 % Normal . [facility] Comment on above: Order Comment: Reaso n for Exam Abdominal pain;Fecal urgency Performed By: #### C MP, CBC, THYROID SC #### [place] [address] [place] #### BOWEL CASC #### [facility] , Nucleated RBC/100 WBC (Bld) [Ratio] 0.1 % Normal 0-0.5 [facility] Comment on above: Order Comment: Reaso n for Exam Abdominal pain;Fecal urgency Performed By: #### C MP, CBC, THYROID SC #### [address] #### BOWEL CASC #### [facility] , Platelet mean volume (Bld) [Entitic vol] 8.4 fL Normal 6.6-10.1 [facility] Comment on above: Order Comment: Reaso n for Exam Abdominal pain;Fecal urgency Performed By: #### C MP, CBC, THYROID SC #### [address] #### BOWEL CASC #### [facility] , Platelets (Bld) [#/Vol] 255 10*3/uL Normal 150-450 [facility] Comment on above: Order Comment: Reaso n for Exam Abdominal pain;Fecal urgency Performed By: #### C MP, CBC, THYROID SC #### [address] #### BOWEL CASC #### [facility] , RBC (Bld) [#/Vol] 5.58 10*6/uL Normal 3.90-5.60 [facility] Comment on above: Order Comment: Reaso n for Exam Abdominal pain;Fecal urgency Performed By: #### C MP, CBC, THYROID SC #### [place] [address] [place] #### BOWEL CASC #### [facility] , WBC (Bld) [#/Vol] 6.9 10*3/uL Normal 4.5-11.0 [facility] Comment on above: Order Comment: Reaso n for Exam Abdominal pain;Fecal urgency Performed By: #### C MP, CBC, THYROID SC #### [place] [address] [place] #### BOWEL CASC #### [facility] , Comprehensive Metabolic Pane gerald 08-14-2021 Albumin [Mass/Vol] 3.9 g/dL Normal 3.2-5.5 [facility] Comment on above: Order Comment: Reaso n for Exam Abdominal pain;Fecal urgency Performed By: #### C MP, CBC, THYROID SC #### [facility] [address] [place] [address] #### BOWEL CASC #### [facility] , Albumin/Globulin [Mass ratio] 1.3 {ratio} Normal [facility] Comment on above: Order Comment: Reaso n for Exam Abdominal pain;Fecal urgency Performed By: #### C MP, CBC, THYROID SC #### [address] #### BOWEL CASC #### [facility] , ALP [Catalytic activity/Vol] 91 U/L Normal 32-92 [facility] Comment on above: Order Comment: Reaso n for Exam Abdominal pain;Fecal urgency Performed By: #### C MP, CBC, THYROID SC #### [facility] [address] [place] [address] [place] #### BOWEL CASC #### [facility] , ALT [Catalytic activity/Vol] 49 U/L Normal 10-60 [facility] Comment on above: Order Comment: Reaso n for Exam Abdominal pain;Fecal urgency Performed By: #### C MP, CBC, THYROID SC #### [facility] [address] [place] [address] [place] #### BOWEL CASC #### [facility] , AST [Catalytic activity/Vol] 34 U/L Normal 10-42 [facility] Comment on above: Order Comment: Reaso n for Exam Abdominal pain;Fecal urgency Performed By: #### C MP, CBC, THYROID SC #### [place] [address] [place] #### BOWEL CASC #### [facility] , Bilirubin [Mass/Vol] 0.5 mg/dL Normal 0.3-1.2 [facility] Comment on above: Order Comment: Reaso n for Exam Abdominal pain;Fecal urgency Performed By: #### C MP, CBC, THYROID SC #### [facility] [address] [place] [address] [place] #### BOWEL CASC #### [facility] , Calcium [Mass/Vol] 8.9 mg/dL Normal 8.2-10.2 [facility] Comment on above: Order Comment: Reaso n for Exam Abdominal pain;Fecal urgency Performed By: #### C MP, CBC, THYROID SC #### [address] #### BOWEL CASC #### [facility] , Chloride [Moles/Vol] 104 mmol/L Normal 95-114 [facility] Comment on above: Order Comment: Reaso n for Exam Abdominal pain;Fecal urgency Performed By: #### C MP, CBC, THYROID SC #### [address] #### BOWEL CASC #### [facility] , CO2 [Moles/Vol] 25.0 mmol/L Normal 22.0-30.0 [facility] Comment on above: Order Comment: Reaso n for Exam Abdominal pain;Fecal urgency Performed By: #### C MP, CBC, THYROID SC #### [facility] [address] [place] [address] [place] #### BOWEL CASC #### [facility] , Creatinine [Mass/Vol] 0.98 mg/dL Normal 0.64-1.27 [facility] Comment on above: Order Comment: Reaso n for Exam Abdominal pain;Fecal urgency Performed By: #### C MP, CBC, THYROID SC #### [address] #### BOWEL CASC #### [facility] , Estimated GFR ( Kari > 60 Normal [facility] Comment on above: Order Comment: Reaso n for Exam Abdominal pain;Fecal urgency Result Comment: GFR estimated reference range: According to KDOQI guidelines, <60 ml/min/1.73m2 is sufficient to diagnose a patient with chronic kidney disease. Performed By: #### C MP, CBC, THYROID SC #### [place] [address] [place] #### BOWEL CASC #### [facility] , Estimated GFR (Non- Am > 60 Normal [facility] Comment on above: Order Comment: Reaso n for Exam Abdominal pain;Fecal urgency Performed By: #### C MP, CBC, THYROID SC #### [place] [address] [place] #### BOWEL CASC #### [facility] , Globulin (S) [Mass/Vol] 2.9 g/dL Normal [facility] Comment on above: Order Comment: Reaso n for Exam Abdominal pain;Fecal urgency Performed By: #### C MP, CBC, THYROID SC #### [place] [address] [place] #### BOWEL CASC #### [facility] , Glucose [Mass/Vol] 100 mg/dL Normal 70-100 [facility] Comment on above: Order Comment: Reaso n for Exam Abdominal pain;Fecal urgency Result Comment: [place] Glucose Reference Range is dependent on time and content of last meal. Glucose of more than 200 mg/dL in a nonstressed, ambulatory subject supports the diagnosis of Diabetes Mellitus. ADA recommended reference range Performed By: #### C MP, CBC, THYROID SC #### [place] [address] [place] #### BOWEL CASC #### [facility] , Potassium [Moles/Vol] 4.0 mmol/L Normal 3.5-5.1 [facility] Comment on above: Order Comment: Reaso n for Exam Abdominal pain;Fecal urgency Performed By: #### C MP, CBC, THYROID SC #### [place] [address] [place] #### BOWEL CASC #### [facility] , Protein [Mass/Vol] 6.8 g/dL Normal 6.1-7.9 [facility] Comment on above: Order Comment: Reaso n for Exam Abdominal pain;Fecal urgency Performed By: #### C MP, CBC, THYROID SC #### [address] #### BOWEL CASC #### [facility] , Sodium [Moles/Vol] 137 mmol/L Normal 136-146 [facility] Comment on above: Order Comment: Reaso n for Exam Abdominal pain;Fecal urgency Performed By: #### C MP, CBC, THYROID SC #### [address] #### BOWEL CASC #### [facility] , Urea nitrogen [Mass/Vol] 14 mg/dL Normal 9-23 [facility] Comment on above: Order Comment: Reaso n for Exam Abdominal pain;Fecal urgency Performed By: #### C MP, CBC, THYROID SC #### [address] #### BOWEL CASC #### [facility] , THYROID SCREENon 08-14-2021 Free T4 [Mass/Vol] 1.00 ng/dL Normal 0.61-1.12 [facility] Comment on above: Order Comment: Reaso n for Exam Abdominal pain;Fecal urgency Performed By: #### C MP, CBC, THYROID SC #### [place] [address] [place] #### BOWEL CASC #### [facility] , TSH Qn 1.53 m[IU]/L Normal 0.45-5.33 [facility] Comment on above: Order Comment: Reaso n for Exam Abdominal pain;Fecal urgency Result Comment: PERF ORMED BY: [place] [address] PATHOLOGIST INTERVENTIONAL RADIOLOGY TECHNOLOGIST LASHELL LEIGH M.D. Performed By: #### C MP, CBC, THYROID SC #### [facility] [address] #### BOWEL CASC #### [facility] , [place] [...] MANOLO ALMANZA Date: 2020-10-08 18:19 Normal [facility] CBC AUTO DIFFon 08-02-2020 BASO # 0.0 103/ul Normal 0.0-0.1 [facility] Comment on above: Performed By: #### C BC #### [facility] [address] [place], [place] [address] Anh Ritika Basophils/100 WBC (Bld) 0.3 % Normal 0.2-2.0 [facility] Comment on above: Performed By: #### C BC #### [facility] [address] [place], [place] [address] Anh Ritika EO # 0.1 103/ul Normal 0.0-0.7 [facility] Comment on above: Performed By: #### C BC #### [facility] [address] [place], [place] [address] Anh Ritika Eosinophils/100 WBC (Bld) 1.3 % Normal 0.9-7.0 [facility] Comment on above: Performed By: #### C BC #### [facility] [address] [place], [place] [address] Anh Ritika Erythrocyte distribution width (RBC) [Ratio] 13.2 % Normal 11.0-15.0 [facility] Comment on above: Performed By: #### C BC #### [facility] [address] [place], [place] [id number] Anh Ritika Hematocrit (Bld) [Volume fraction] 48.8 % Normal 42.0-54.0 [facility] Comment on above: Performed By: #### C BC #### [facility] [address] [place], [place] [id number] Anh Ritika Hemoglobin (Bld) [Mass/Vol] 16.0 g/dL Normal 14.0-18.0 [facility] Comment on above: Performed By: #### C BC #### [facility] [address] [place] [address] Anh Ritika IG # 0.11 10e3/ul Critically high 0.00-0.03 [facility] Comment on above: Performed By: #### C BC #### [facility] [address] [place] [address] Anh Ritika IG % 1.3 % Critically high 0.0-0.5 [facility] Comment on above: Performed By: #### C BC #### [facility] [address] [place] [address] Anh Ritika LYMPH # 1.8 103/ul Normal 1.2-3.8 [facility] Comment on above: Performed By: #### C BC #### [facility] [address] [place] [address] Anh Ritika Lymphocytes/100 WBC (Bld) 20.4 % Critically low 20.5-60.0 [facility] Comment on above: Performed By: #### C BC #### [facility] [address] [place] [address] Anh Ritika MANUAL DIFF REQ NO Normal [facility] Comment on above: Performed By: #### C BC #### [facility] [address] [place], [place] [id number] Anh Ritika MCH (RBC) [Entitic mass] 28.4 pg Normal 25.9-34.0 [facility] Comment on above: Performed By: #### C BC #### [facility] [address] [place] [address] Anh Yost MCHC (RBC) [Mass/Vol] 32.8 g/dL Normal 29.9-35.2 [facility] Comment on above: Performed By: #### C BC #### [facility] [address] [place], [place] [id number] Anh Yost MCV (RBC) [Entitic vol] 86.5 fL Normal 80.0-94.0 [facility] Comment on above: Performed By: #### C BC #### [facility] [address] [place] [address] Anhradha Bansalen MONO # 0.6 103/ul Normal 0.3-0.8 [facility] Comment on above: Performed By: #### C BC #### [facility] [address] [place] [address] Anhradha Yost Monocytes/100 WBC (Bld) 7.0 % Normal 1.7-12.0 [facility] Comment on above: Performed By: #### C BC #### [facility] [address] [place] [address] Anhradha Bansalen NEUT # 6.1 103/ul Normal 1.4-6.5 [facility] Comment on above: Performed By: #### C BC #### [facility] [address] [place] [address] Anh Yost Neutrophils/100 WBC (Bld) 69.7 % Normal 43.0-75.0 [facility] Comment on above: Performed By: #### C BC #### [facility] [address] [place] [address] Anhradha Yost Platelet mean volume (Bld) [Entitic vol] 11.0 fL Normal 9.5-13.5 [facility] Comment on above: Performed By: #### C BC #### [facility] [address] [place], [place] [address] Anh Ritika PLT 270 103/ul Normal 150-450 [facility] Comment on above: Performed By: #### C BC #### [facility] [address] [place] [address] Anh Ritika RBC 5.64 106/ul Normal 4.70-6.10 [facility] Comment on above: Performed By: #### C BC #### [facility] [address] [place], [place] [address] Anh Yost WBC 8.8 103/ul Normal 4.0-11.0 [facility] Comment on above: Performed By: #### C BC #### [facility] [address] [place] [id number] Anh Yost GLYCOHEMOGLOBIN A1Con 2020 ADA RECOMMENDATION ADA THERAPEUTIC TARGET 6.0 - 7.0 ACTION SUGGESTED > 7.0 Normal [facility] Comment on above: Performed By: #### A 1C #### [facility] [address] [place] [address] Anh Ritika Glucose [Mass/Vol] 114 mg/dL Normal [facility] Comment on above: Performed By: #### A 1C #### [facility] [address] [place] [address] Anh Yost HbA1c (Bld) [Mass fraction] 5.6 % Normal <=6.0 [facility] Comment on above: Performed By: #### A 1C #### [facility] [address] [place] [address] Anh Yost LIPID PROFILEon 08-02-2020 CHOL-HDL RATIO NORM SEE BELOW Normal [facility] Comment on above: Result Comment: 3.3 - 4.4 LOW RISK 4.4 - 7.1 AVERAGE RISK 7.1 - 11.0 MODERATE RISK >11.0 HIGH RISK Performed By: #### L IPID, CMP #### [facility] [address] [place] [address] Anh Ritika Cholesterol [Mass/Vol] 193 mg/dL Normal <=200 [facility] Comment on above: Performed By: #### L IPID, CMP #### [facility] [address] [place] [address] Anh Ritika Cholesterol in HDL [Mass/Vol] 30 mg/dL Normal [facility] Comment on above: Performed By: #### L IPID, CMP #### [facility] [address] [place], [place] [address] Anh Ritika Cholesterol in LDL [Mass/Vol] 118.2 mg/dL Normal [facility] Comment on above: Performed By: #### L IPID, CMP #### [facility] [address] [place] [id number] Anh Ritika Cholesterol.total/Ch olesterol in HDL [Mass ratio] 6.4 {ratio} Normal [facility] Comment on above: Performed By: #### L IPID, CMP #### [facility] [address] [place] [id number] Anh Ritika HDL NORMAL > or = 60 mg/dl - LO W CARDIOVASCULAR RISK <40 mg/dl - HIGH CARDIOVASCULAR RISK Normal [facility] Comment on above: Performed By: #### L IPID, CMP #### [facility] [address] [place] [id number] Anh Ritika LDL CALC NORMAL SEE BELOW Normal [facility] Comment on above: Result Comment: <100 mg/dl OPTIMAL 100 - 129 mg/dl NEAR OR ABOVE OPTIMAL 130 - 159 mg/dl BORDERLINE HIGH 160 - 189 mg/dl HIGH >190 mg/dl VERY HIGH Performed By: #### L IPID, CMP #### [facility] [address] [place], [place] [address] Anh Ritika Triglyceride [Mass/Vol] 224 mg/dL Critically high <=150 [facility] Comment on above: Performed By: #### L IPID, CMP #### [facility] [address] [place] [id number] Anh Ritika VLDL CALC 44.8 mg/dL Normal [facility] Comment on above: Performed By: #### L IPID, CMP #### [facility] [address] [place] [id number] Anhradha Bansalen PROF 14(COMP METB)on 021 Albumin [Mass/Vol] 4.1 g/dL Normal 3.5-5.0 [facility] Comment on above: Performed By: #### L IPID, CMP #### [facility] [address] [place], [place] [address] Anh Ritika Albumin/Globulin [Mass ratio] 1.1 {ratio} Normal [facility] Comment on above: Performed By: #### L IPID, CMP #### [facility] [address] [place] [address] Anh Ritika ALP [Catalytic activity/Vol] 105 U/L Normal 38-126 [facility] Comment on above: Performed By: #### L IPID, CMP #### [facility] [address] [place] [address] Anh Ritika ALT [Catalytic activity/Vol] 77 U/L Critically high 21-72 [facility] Comment on above: Performed By: #### L IPID, CMP #### [facility] [address] [place] [address] Anh Ritika Anion gap [Moles/Vol] 12.4 mmol/L Normal [facility] Comment on above: Performed By: #### L IPID, CMP #### [facility] [address] [place] [address] Anh Ritika AST [Catalytic activity/Vol] 32 U/L Normal 17-59 [facility] Comment on above: Performed By: #### L IPID, CMP #### [facility] [address] [place] [address] Anh Ritika Bilirubin [Mass/Vol] 0.3 mg/dL Normal 0.2-1.3 [facility] Comment on above: Performed By: #### L IPID, CMP #### [facility] [address] [place] [address] Anh Ritika Calcium [Mass/Vol] 9.3 mg/dL Normal 8.4-10.2 [facility] Comment on above: Performed By: #### L IPID, CMP #### [facility] [address] [place] [id number] Anh Ritika Chloride [Moles/Vol] 103 mmol/L Normal 98-107 [facility] Comment on above: Performed By: #### L IPID, CMP #### [facility] [address] [place] [id number] Anh Ritika CO2 [Moles/Vol] 29.8 mmol/L Normal 22.0-30.0 [facility] Comment on above: Performed By: #### L IPID, CMP #### [facility] [address] [place] [id number] Anh Irtika Creatinine [Mass/Vol] 1.02 mg/dL Normal 0.66-1.25 [facility] Comment on above: Performed By: #### L IPID, CMP #### [facility] [address] [place] [id number] Anh Ritika EGFR-AF LAO >60 Normal >=[address] [facility] Comment on above: Performed By: #### L IPID, CMP #### [facility] [address] [place] [address] Anh Ritika EGFR-NON AF LAO >60 Normal >=60 [facility] Comment on above: Performed By: #### L IPID, CMP #### [facility] [address] [place] [address] Anh Ritika Globulin (S) [Mass/Vol] 3.8 g/dL Normal [facility] Comment on above: Performed By: #### L IPID, CMP #### [facility] [address] [place] [address] Anh Ritika Glucose [Mass/Vol] 97 mg/dL Normal 74-106 [facility] Comment on above: Performed By: #### L IPID, CMP #### [facility] [address] [place], [place] [address] Anh Ritika Potassium [Moles/Vol] 4.2 mmol/L Normal 3.4-5.0 [facility] Comment on above: Performed By: #### L IPID, CMP #### [facility] [address] [place] [id number] Anh Ritika Protein [Mass/Vol] 7.9 g/dL Normal 6.1-8.2 [facility] Comment on above: Performed By: #### L IPID, CMP #### [facility] [address] [place] [id number] Anh Ritika Sodium [Moles/Vol] 141 mmol/L Normal 137-145 [facility] Comment on above: Performed By: #### L IPID, CMP #### [facility] [address] [place], [place] [address] Anh Yost Urea nitrogen [Mass/Vol] 13.0 mg/dL Normal 9.0-20.0 [facility] Comment on above: Performed By: #### L IPID, CMP #### [facility] [address] [place], [place] [address] Anh Yost Urea nitrogen/Creatinine [Mass ratio] 12.7 mg/mg Normal [facility] Comment on above: Performed By: #### L IPID, CMP #### [facility] [address] [place], [place] [address] Anh Yost Coding Summary.on 11-02-2019 Coding Summary. CODING DATE: 11/02/2019 FINAL [facility] STATUS: Home (Routine DC) PAYOR: Carlock ADMIT DX: REASON FOR VISIT DX: R68.89 [...] Renner CphT Date Saved: 11/02/2019 04:[address] [facility] Provider Letteron 10-15-2019 Provider Letter October 15, 2019 [address] [place] [address] [employer]IF [employer]ICE 1990 To Whom It May Concern, Please excuse above patient from work. May Return to Work On: 10/18/2019 Comments: COVID-19 TEST WAS NEGATIVE. Pt may return to work if symptoms are improving, no fever for 3 days without the use of Tylenol/Ibuprofen Sincerely, Formerly [facility], [facility] [place] [address], [place] [address] Normal [facility] SARS-CoV-2, NAAon 10-15-2019 SARS CORONAVIRUS 2 RNA:PRTHR:PT:RESPIRA TORY:ORD:PROBE.AMP.T AR Not Detected Not Detected [facility] Comment on above: Result Comment: This test was developed and its performance characteristics determined by [employer]. This test has not been FDA cleared [...] detected) result in this assay. 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 Avoid touching face, eyes, nose, mouth. Be courteous and respectful of others health. Wear a clean cloth mask to reduce risk of passing virus to others. If you were to develop trouble breathing then call local ED and for advice and further directions as to where to go. Otherwise try to stay at home. Ordered: SARS-CoV-2, GREGORY Orders: brompheniramine/dextr omethorphan/PSE, 10 mL, Oral, QID for cold symptoms, 200 mL, Refill(s) 0, [id number], 168, cm, 10/11/19 10:36:00 EDT, Height/Length Measured, 109, kg, 10/11/19 10:36:00 EDT, Weight Measured ondansetron, 4 mg = 1 tab(s), Oral, q6hr, PRN Nausea/Vomiting, # 12 tab(s), Refills(s) 0, Pharmacy: [id number], 168, cm, 10/11/19 10:36:00 EDT, Height/Length Measured, 109, kg, 10/11/19 10:36:00 EDT, Weight Measured XR Wrist 3+ Views Right Follow-up No qualifying data available Patient Education Viral Infections, [id number] Problem List/Past Medical History Ongoing Obesity Historical [...] only communication with the patient located at [address] [phone], with no one else. If it is determined that the patient should be evaluated in person, the patient will be directed to the appropriate clinic or venue. The patient or their guardian verbally consented to this visit. Phone time was 10 minutes discussing health issues with counseling and coordination of care. Normal [facility] Comment on above: Result Comment: Elec tronically [...] Document Reviewed: 07/09/2011 ExitCare? Patient Information ?[address] [employer] [facility] Vital Signs Date Time Vital Sign Value Performing Clinician Facility 06-16-2024 18:09-0400 Body mass index (BMI) [Ratio] 37.16 kg/m2 Grisel Ann NP Work Phone: [facility] 06-16-2024 18:09-0400 Body temperature 98.8 [degF] Grisel Ann APPLICATION SYSTEMS ADMINISTRATOR Work Phone: [facility] 06-16-2024 18:09-0400 Body weight 104.42 kg Grisel Ann NP Work Phone: [facility] 06-16-2024 18:09-0400 Diastolic blood pressure 78 mm[Hg] Grisel Ann NP Work Phone: [facility] 06-16-2024 18:09-0400 Heart rate 79 /min Grisel Ann APPLICATION SYSTEMS ADMINISTRATOR Work Phone: [facility] 06-16-2024 18:09-0400 Respiratory rate 18 /min Grisel Ann APPLICATION SYSTEMS ADMINISTRATOR Work Phone: [facility] [employer] 06-16-2024 18:09-0400 SaO2% (BldA) [Mass fraction] 97 % Grisel Marissa APPLICATION SYSTEMS ADMINISTRATOR Work Phone: [facility] [employer] 06-16-2024 18:09-0400 Systolic blood pressure 148 mm[Hg] Grisel Marissa APPLICATION SYSTEMS ADMINISTRATOR Work Phone: [facility] [employer] 07-24-2021 16:30-0400 Body height 167.64 cm Isacc Justin Other [employer] Other 07-24-2021 16:30-0400 Body mass index (BMI) [Ratio] 37.6 kg/m2 Isacc Riveraormack Other [employer] Other 07-24-2021 16:30-0400 Body weight 105.69 kg Isacc Justin Other [employer] Other 07-24-2021 16:30-0400 Diastolic blood pressure 94 mm[Hg] Isacc Justin Other [employer] Other 07-24-2021 16:30-0400 Systolic blood pressure 143 mm[Hg] Isacc Riveraormack Other [employer] Other Encounters Encounter Date Encounter Type Care Provider Facility Start: 07-02-2024 End: 07-02-2024 [facility] Result Encounter Grisel Marissa APPLICATION SYSTEMS ADMINISTRATOR Work Phone: [facility] External Department Unsolicited Start: 07-02-2024 End: 07-02-2024 [facility] Result Encounter Grisel Marissa APPLICATION SYSTEMS ADMINISTRATOR Work Phone: [facility] External Department Unsolicited Start: 06-16-2024 End: 06-16-2024 Office outpatient visit 25 minutes Grisel Ann APPLICATION SYSTEMS ADMINISTRATOR Work Phone: [facility] Comment on above: Primary hypertension (CMS/HCC) (Primary Dx); Tobacco dependence; Mixed hyperlipidemia (CMS/HCC); Heart murmur; Pre-diabetes; Hyperlipidemia, unspecified hyperlipidemia type (CMS/HCC); Irritable bowel syndrome with diarrhea; H/O herpes genitalis Start: 06-16-2024 End: 06-16-2024 ambulatory GRISEL ANN Not Available Start: 06-16-2024 End: 06-16-2024 Bamboo flowsheet Grisel Ann APPLICATION SYSTEMS ADMINISTRATOR Work Phone: [facility] Start: 06-16-2024 End: 06-16-2024 Bamboo flowsheet Grisel Ann APPLICATION SYSTEMS ADMINISTRATOR Work Phone: [facility] Start: 07-24-2021 End: 07-24-2021 ambulatory Isacc Anderson Other [employer] Other Start: 07-24-2021 Office outpatient ne w 45 minutes Isacc Anderson [facility] G[facility]ology Start: 10-07-2020 End: 10-08-2020 ambulatory [facility] Facility:H1 Start: 08-02-2020 End: 08-03-2020 ambulatory [facility] Facility: Procedures Date Procedure Procedure Detail Performing Clinician Start: 07-02-2024 CA ECHO DOPPLER COMPLETE Grisel Ann APPLICATION SYSTEMS ADMINISTRATOR Work Phone: Start: 07-02-2024 ALL CBC WITH AUTO DIFF Grisel Ann APPLICATION SYSTEMS ADMINISTRATOR Work Phone: Plan of Treatment Date Care Activity Detail Author Start: 11-15-2024 Influenza vaccination Influenz a Vaccine (Season Ended) [facility] Start: 07-15-2024 End: 07-15-2024 Patient encounter procedure 07/15/2024 3:20 PM EDT Office Visit [facility] [address] [place] [address] Grisel Ann NP [address] [place] [phone] [facility] Start: 06-16-2024 End: 06-16-2024 Patient encounter procedure 06/16/2024 6:00 PM EDT Office Visit [facility] [address] [place] [address] Grisel Ann, APPLICATION SYSTEMS ADMINISTRATOR [address] [place] [address] Primary hypertension (CMS/HCC) (Primary Dx); Tobacco dependence; Mixed hyperlipidemia (CMS/HCC) [facility] Comment on above: Primary hypertension (CMS/HCC) (Primary Dx); Tobacco dependence; Mixed hyperlipidemia (CMS/HCC) Start: 06-16-2024 End: 06-16-2025 CBC W Auto Differential panel - Blood CBC and differential Lab Routine Tobacco dependence Expected: 06/16/2024 (Approximate), Expires: 06/16/2025 [facility] Work Phone: Comment on above: Expected: 06/16/2024 (Approximate), Expires: 06/16/2025 Start: 06-16-2024 End: 06-16-2025 Comprehensive metabolic 2000 panel - Serum or Plasma Comprehensive metabolic panel Lab Routine Primary hypertension (CMS/HCC) Mixed hyperlipidemia (CMS/HCC) Expected: 06/16/2024 (Approximate), Expires: 06/16/2025 [facility] Comment on above: Expected: 06/16/2024 (Approximate), Expires: 06/16/2025 Start: 06-16-2024 End: 06-16-2026 Echocardiogram 2D complete Echocardiogram 2D complete Echocardiography Routine Heart murmur Expected: 06/16/2024 (Approximate), Expires: 06/16/2026 [facility] Comment on above: Expected: 06/16/2024 (Approximate), Expires: 06/16/2026 Start: 06-16-2024 End: 06-16-2025 Hemoglobin A1c/Hemoglobin.total in Blood Hemoglobin A1c Lab Routine Pre-diabetes Expected: 06/16/2024 (Approximate), Expires: 06/16/2025 [facility] Comment on above: Expected: 06/16/2024 (Approximate), Expires: 06/16/2025 Start: 06-16-2024 End: 06-16-2025 Lipid 1996 panel - Serum or Plasma Lipid panel Lab Routine Mixed hyperlipidemia (CMS/HCC) Expected: 06/16/2024 (Approximate), Expires: 06/16/2025 [facility] Comment on above: Expected: 06/16/2024 (Approximate), Expires: 06/16/2025 Start: 06-16-2024 End: 06-16-2025 Microalbumin/Creatinine panel in random Urine Microalbumin / creatinine, urine ratio Lab Routine Primary hypertension (CMS/HCC) Expected: 06/16/2024 (Approximate), Expires: 06/16/2025 [facility] Comment on above: Expected: 06/16/2024 (Approximate), Expires: 06/16/2025 Start: 06-16-2024 End: 06-16-2025 Thyrotropin [Units/volume] in Serum or Plasma TSH Lab Routine Mixed hyperlipidemia ([facility]/HCC) Expected: 06/16/2024 (Approximate), Expires: 06/16/2025 [facility] Comment on above: Expected: 06/16/2024 (Approximate), Expires: 06/16/2025 Start: 06-16-2024 End: 06-16-2025 Urinalysis complete panel - Urine Urinalysis with reflex microscopic (clean catch) Lab Routine Primary hypertension ([facility]/HCC) Tobacco dependence Expected: 06/16/2024 (Approximate), Expires: 06/16/2025 [facility] Comment on above: Expected: 06/16/2024 (Approximate), Expires: 06/16/2025 Immunizations Immunization Date Immunization Notes Care Provider [facility] 03-12-2002 hepatitis B vaccine, pediatric or pediatric/adolescent dosage Grisel Aichholz APPLICATION SYSTEMS ADMINISTRATOR Work Phone: [facility] 03-12-2002 measles, mumps and rubella virus vaccine Grisel Aichholz APPLICATION SYSTEMS ADMINISTRATOR Work Phone: [facility] 12-25-2001 hepatitis B vaccine, pediatric or pediatric/adolescent dosage Grisel Aichholz APPLICATION SYSTEMS ADMINISTRATOR Work Phone: [facility] 10-19-1999 hepatitis B vaccine, pediatric or pediatric/adolescent dosage Grisel Aichholz APPLICATION SYSTEMS ADMINISTRATOR Work Phone: [facility] 12-11-1994 diphtheria, tetanus toxoids and acellular pertussis vaccine, unspecified formulation Grisel Aichholz APPLICATION SYSTEMS ADMINISTRATOR Work Phone: [facility] 06-12-1992 diphtheria, tetanus toxoids and pertussis vaccine Grisel Aichholz APPLICATION SYSTEMS ADMINISTRATOR Work Phone: [facility] 06-12-1992 haemophilus influenz ae type b vaccine, conjugate unspecified formulation Grisel Aichholz APPLICATION SYSTEMS ADMINISTRATOR Work Phone: [facility] 06-12-1992 measles, mumps and rubella virus vaccine Grisel Aichholz APPLICATION SYSTEMS ADMINISTRATOR Work Phone: [facility] 06-12-1992 trivalent poliovirus vaccine, live, oral Grisel Aichholz APPLICATION SYSTEMS ADMINISTRATOR Work Phone: [facility] 04-28-1991 diphtheria, tetanus toxoids and pertussis vaccine Grisel Aichholz APPLICATION SYSTEMS ADMINISTRATOR Work Phone: [facility] 04-28-1991 haemophilus influenz ae type b vaccine, conjugate unspecified formulation Grisel Aichholz APPLICATION SYSTEMS ADMINISTRATOR Work Phone: [facility] 04-28-1991 trivalent poliovirus vaccine, live, oral Grisel Aichholz APPLICATION SYSTEMS ADMINISTRATOR Work Phone: [facility] 01-18-1991 diphtheria, tetanus toxoids and pertussis vaccine Grisel Aichholz APPLICATION SYSTEMS ADMINISTRATOR Work Phone: [facility] 01-18-1991 haemophilus influenz ae type b vaccine, conjugate unspecified formulation Grisel Aichholz APPLICATION SYSTEMS ADMINISTRATOR Work Phone: [facility] 01-18-1991 trivalent poliovirus vaccine, live, oral Grisel Aichholz APPLICATION SYSTEMS ADMINISTRATOR Work Phone: [facility] Payers Date Payer Category Payer [facility] [id number] 1990 Unknown [id number] 1990 Unknown [id number] 1990 Unknown [id number] 1959 Unknown [id number] Social History Date Type Detail Facility Start: 04-10-2023 End: 06-16-2024 Sex Assigned At [facility] Other Start: 04-10-2023 End: 06-16-2024 Tobacco smoking status ILIS Smokes tobacco daily [facility] History of tobacco use Cigarette Smoker [facility] Start: 04-10-2023 End: 06-16-2024 Alcoholic beverage intake Lifetime non-drinker (finding) [facility] Start: 04-10-2023 End: 06-16-2024 History of Social function [facility] Start: 1990 Sex assigned at Not on file [facility] Start: 06-16-2024 Alcohol Comment caffine:1 pot of coffee daily 1 energy drink daily, 4-5 cans of soda daily no more than 12 cans [facility] History of Present illness Narrative 06-16-2024 Grisel Ann, OWEN - 06/16/2024 6:55 PM EDJorge A Ann NP - 06/16/2024 6:54 PM Sandip Ann NP - 06/16/2024 6:53 PM EDSHANE MULLER - 06/16/2024 6:00 PM EDT Note Date & Type Note Facility 06-16-2024 History of Presen t illness Narrative Associated Problem(s): Irritable bowel syndrome with diarrhea Bentyl prn Associated Problem(s): Pre-diabetes Increase in urination, hx [...] compliance problems. There is no history of CAD/FL, heart failure or PVD. SUBJECTIVE: MEDICATIONS: Current [...] of the risks of continued smoking: stroke, FL, all forms of cancer, lung disease, and [...] of the risks of continued smoking: stroke, FL, all forms of cancer, lung disease, and [...] dose to 10mg documented in this encounter [facility] Instructions 06-16-2024 Patient Instructions Note Date & Type Note Facility 06-16-2024 Instructions Grisel Ann NP - 06/16/2024 6:00 PM EDT Stop the amlodipine 5mg script, new dose is 10mg , take 1 pill daily We are going to check an Ultra sound of your heart, called an [facility] will call you about setting this up Check labs fasting 8 hours documented in this encounter [facility] Evaluation note 07-24-2021 Note Date & Type Note Facility 07-24-2021 Evaluation note Encounter Date Diagnosis Assessment Notes July, Abdominal pain (ICD-10 - R10.9) July, Fecal urgency (ICD-10 - R15.2) [employer] Other Evaluation note Note Date & Type Note Facility Evaluation note Diagnosis URTI (acute upper respiratory infection)- Primary Acute upper respiratory infections of unspecified site Primary hypertension (CMS/HCC) Unspecified essential hypertension Other hyperlipidemia Pre-diabetes Other abnormal glucose Tobacco abuse Tobacco use disorder Irritable bowel syndrome with diarrhea Irritable bowel syndrome Primary hypertension (CMS/HCC)- Primary Unspecified essential hypertension Tobacco dependence Tobacco use disorder Mixed hyperlipidemia (CMS/HCC) Mixed hyperlipidemia Heart murmur Undiagnosed cardiac murmurs Pre-diabetes Other abnormal glucose Hyperlipidemia, unspecified hyperlipidemia type (CMS/HCC) Irritable bowel syndrome with diarrhea Irritable bowel [...] section and content) DATE CREATED AUTHOR 11/03/2019 Saad Archibald [facility] DATE CREATED AUTHOR AUTHOR'S ORGANIZ ATION 10/19/[address] [facility] p[facility] DATE CREATED AUTHOR AUTHOR'S ORGANIZ ATION 08/23/2021 [facility] DATE CREATED AUTHOR AUTHOR'S ORGANIZ ATION 06/19/2024 [facility] dical Specialists EPIC REASON FOR VISIT (unrecogniz ed section and content) PATIENT REFERRED HERE BY DR. MOERNO FOR ABDOMINAL PAIN. PT DOES TAKE MEDICATION BUT DOES NOT RECALL NAMES OR DOSAGES NOR DOES HE HAVE A LIST TO REVIEW Care Teams (unrecognized sec tion and content) Motor Vehicle Field Representative Relationship Specialty Start Date End Date Shaikh Moreno MD [address] [place] [phone] PCP - [employer] 03/17/23 Tony Eller MD [address] [place] [phone] PCP - General Family Medicine 06/16/24 Motor Vehicle Field Representative Relationship Specialty Start Date End Date Shaikh Moreno MD [address] [place] [phone] PCP - [employer] 03/17/23 Tony Eller MD [address] [place] [phone] PCP - General Family Medicine 06/16/24 Motor Vehicle Field Representative Relationship Specialty Start Date End Date Shaikh Moreno MD [address] [place] [phone] PCP - [employer] 03/17/23 Tony Eller MD [address] [place] [phone] PCP - General Family Medicine 06/16/24 FOR RECORDS PERTAINING TO PATIENTS WHO [...] BE BASED ON THE PRIMARY CLINICAL RECORDS. [facility] [employer] [facility] provides no warranty or guarantee of the accuracy or completeness of information in this document.
[2024-08-03 20:00] VITALS: BP 132/85; PULSE 87; TEMP 37.3; O2SAT 96; BMI 38.7
--- NOTE | 2024-08-03 20:07 | ED.GENADUL1 ---
HPI HPI - General Adult General Chief complaint: Upper Respiratory Infection Stated complaint: CONGESTION, COUGH Time Seen by Provider: 08/03/24 20:06 Source: family Mode of arrival: walk-in Limitations: no limitations History of Present Illness HPI narrative: Patient is a 33-year-old male who presents to the emergency department today for evaluation concerns for cough/cold symptoms. He endorses the symptoms have been ongoing since 07/31. Reports some nasal congestion with a headache. He reports tactile temperatures. No ear pain or sore throat. He states he has been coughing some but does endorse a history of smoking. No chest pain or shortness of breath. No abdominal pain or nausea/vomiting/diarrhea. Related Data Home Medications ?Medication ?Instructions ?Recorded ?Confirmed amlodipine 5 mg tablet 5 mg PO DAILY 03/02/23 06/08/24 atorvastatin 20 mg tablet 20 mg PO DAILY 03/02/23 06/08/24 dicyclomine 10 mg capsule 10 mg PO QID PRN abdominal pain 03/02/23 06/08/24 pantoprazole 40 mg tablet,delayed 40 mg PO DAILY 03/02/23 03/02/23 release valacyclovir 500 mg tablet 500 mg PO DAILY 03/02/23 06/08/24 Previous Rx's ?Medication ?Instructions ?Recorded acetaminophen 300 mg-codeine 30 mg 1 tab PO Q6H PRN pain 5 days #20 03/02/23 tablet tabs penicillin V potassium 250 mg 250 mg PO QID 10 days #40 tabs 03/02/23 tablet albuterol sulfate 90 mcg/actuation 2 inh inhalation Q4H PRN shortness 12/12/23 aerosol inhaler of breath or wheezing #8.5 grams eglwghvcbcwjefj-vygijqifxviaqag-MX 10 ml PO Q6H PRN cold symptoms 12/12/23 2 mg-30 mg-10 mg/5 mL oral syrup #200 mL (Bromfed DM) ondansetron 4 mg disintegrating 4 mg PO Q6H PRN nausea and 12/12/23 tablet vomiting #12 tabs prednisone 20 mg tablet 60 mg (3 x 20 mg) PO DAILY 3 days 12/12/23 #9 tabs amlodipine 5 mg tablet 5 mg PO DAILY #30 tabs 06/08/24 dextromethorphan-guaifenesin ER 60 1 tab PO BID PRN cold symptoms #20 06/08/24 mg-1,200 mg tab,extend tabs release,12hr (Mucinex DM) ondansetron 4 mg disintegrating 4 mg PO Q6H PRN nausea and 06/08/24 tablet vomiting #10 tabs valacyclovir 500 mg tablet 500 mg PO DAILY #30 tabs 06/08/24 Allergies Allergy/AdvReac Type Severity Reaction Status Date / Time No Known Drug Allergies Allergy Verified 08/03/24 20:07 Opioid HPI Opioid Management Most Recent Opioid Data: Last Pain Scale 5 03/02/23, 18:15 Review of Systems ROS Status of ROS 10 or more systems reviewed and unremarkable except as noted in history and below PFSH PFS Social History Little interest or pleasure in doing things: not at all Feeling down, depressed, or hopeless: not at all Exam Narrative Exam Narrative: Constituational: Awake/ alert, no apparent distress, well hydrated HENMT: normocephalic, internal/external ears normal, + congestion, no nasal drainage, moist oral mucous membranes and oropharynx normal Eyes: EOMI and conjunctivae normal Neck: ROM intact Chest: inspection of chest normal Respiratory: Normal respiratory effort, clear to auscultation bilaterally with good/fair aeration throughout Cardio: regular rate and regular rhythm GI: soft to palpation and non-tender Back: nontender MSK: ROM intact, +NVI Skin: no rashes or petechiae Neuro: no focal deficits Psych: mental status grossly normal Constitutional Vital Signs, click to edit/add: Last Vital Signs Temp 99.1 F 08/03/24 20:00 Pulse 87 08/03/24 20:00 Resp 18 08/03/24 20:00 BP 132/85 08/03/24 20:00 Pulse Ox 96 08/03/24 20:00 O2 Del Method Room Air 08/03/24 20:00 Course Vital Signs Vital signs: Vital Signs Temperature 99.1 F 08/03/24 20:00 Pulse Rate 87 08/03/24 20:00 Respiratory Rate 18 08/03/24 20:00 Blood Pressure 132/85 08/03/24 20:00 Pulse Oximetry 96 08/03/24 20:00 Oxygen Delivery Method Room Air 08/03/24 20:00 Temperature 99.1 F 08/03/24 20:00 Pulse Rate 87 08/03/24 20:00 Respiratory Rate 18 08/03/24 20:00 Blood Pressure 132/85 08/03/24 20:00 Pulse Oximetry 96 08/03/24 20:00 Oxygen Delivery Method Room Air 08/03/24 20:00 Medical Decision Making MDM Narrative Medical decision making narrative: Patient is a nontoxic-appearing 33-year-old male who presented to the emergency department today for evaluation of concerns for cough/cold symptoms. On initial examination patient with clinical evidence consistent with URI as evidenced by some nasal congestion. He is not in any respiratory distress. No evidence of sinusitis or otitis. Viral testing is negative for influenza and COVID. Discussed this with the patient including recommendations for supportive care of URI, likely viral etiology. Patient additionally counseled for 5 minutes on smoking cessation. Advised on follow-up with patient's primary care provider for reevaluation. Discussed signs and symptoms of any worsening condition and when to consider reevaluation. Patient verbalized an understanding of this and is agreeable to plan to be discharged home. Medical Records Medical records reviewed: Yes I reviewed the patient's medical records Lab Data Lab results reviewed: Yes I reviewed the patient's lab results Labs: Lab Results 08/03/24 Range/Units 20:10 Influenza Type A Ag Negative Influenza Type B Ag Negative SARS-CoV-2 Ag (CV2AG) Negative (NEGATIVE) Smoking Cessation Time spent discussing smoking cessation with patient: 3 to 10 minutes Patient Acknowledges Need for Cessation: Yes Discharge Plan Discharge Chief Complaint: Upper Respiratory Infection Clinical Impression: Upper respiratory infection, Tobacco dependence Patient Disposition: Home, Self-Care Prescriptions / Home Meds: No Action amlodipine 5 mg tablet 5 mg PO DAILY atorvastatin 20 mg tablet 20 mg PO DAILY dicyclomine 10 mg capsule 10 mg PO QID PRN (Reason: abdominal pain) pantoprazole 40 mg tablet,delayed release (DR/EC) 40 mg PO DAILY valacyclovir 500 mg tablet 500 mg PO DAILY acetaminophen-codeine 300-30 mg tablet 1 tab PO Q6H PRN (Reason: pain) 5 Days Qty: 20 0RF penicillin V potassium 250 mg tablet 250 mg PO QID 10 Days Qty: 40 0RF albuterol sulfate 90 mcg/actuation HFA aerosol inhaler 2 inh inhalation Q4H PRN (Reason: shortness of breath or wheezing) Qty: 8.5 0RF radiciccjefbkhw-mymzgukgl-YK [Bromfed DM] 2-30-10 mg/5 mL syrup 10 ml PO Q6H PRN (Reason: cold symptoms) Qty: 200 0RF prednisone 20 mg tablet 60 mg PO DAILY 3 Days Qty: 9 0RF ondansetron 4 mg tablet,disintegrating 4 mg PO Q6H PRN (Reason: nausea and vomiting) Qty: 12 0RF amlodipine 5 mg tablet 5 mg PO DAILY Qty: 30 0RF valacyclovir 500 mg tablet 500 mg PO DAILY Qty: 30 0RF dextromethorphan-guaifenesin [Mucinex DM] 60-1,200 mg tablet extended release 12 hr 1 tab PO BID PRN (Reason: cold symptoms) Qty: 20 0RF ondansetron 4 mg tablet,disintegrating 4 mg PO Q6H PRN (Reason: nausea and vomiting) Qty: 10 0RF Print Language: Cypriot Instructions: How to Stop Smoking (ED), Upper Respiratory Infection (ED) Additional Instructions: May take Tylenol or ibuprofen as needed for any fevers or pain. May use nklh-buz-qkxszwg cough/cold medication such as Mucinex or Sudafed. Stop smoking as this increases your risk of respiratory infections in addition to chronic illnesses such as COPD and life-threatening conditions such as cancer, heart attack, and stroke. Follow-up with your primary care provider for reevaluation as discussed. Referrals: Grisel Ann NP [Primary Care Provider, Family Practice] - 1 week
[2024-08-03 20:39] LABS: Influenza Virus A Antigen Negative; Influenza Virus B Antigen Negative; Internal Control Within Normal Limits; SARS-CoV-2 Ag NEGATIVE (NEGATIVE)
[2024-08-03 20:47] VITALS: BP 135/89; PULSE 88; O2SAT 99
== END 2024-08-03 20:47 | disposition home or self-care (01) ==
PROVIDERS: Nurse Practitioner; Emergency Provider Emergency Medicine; PCP Nurse Practitioner
DX: J06.9 Acute upper respiratory infection, unspecified (principal); F17.200 Nicotine dependence, unspecified, uncomplicated
CPT/HCPCS: 87804; 87811; 99284